=== PATIENT | female | born 1995 | race Caucasian/White ===

== ENCOUNTER 2019-08-21 21:16 | Inpatient (IN) | payer MEDICAID, SELFPAY ==
--- NOTE | 2019-08-21 21:26 | XR_ITS ---
WS: [id number] ABDOMEN KUB CLINICAL INFORMATION: Constipation COMPARISON: None. FINDINGS: Normal bowel gas pattern. Scattered air normal caliber small and large bowel. No significant bowel d istention. Normal lumbar spine XR/XR KUB [id number] Impression: Unremarkable bowel gas pattern.
[2019-08-21 21:52] VITALS: BP 136/98; PULSE 86; RESP 18; TEMP 36.9; O2SAT 98; BMI 31.5
--- NOTE | 2019-08-21 22:20 | W.ED.ABDPA2 ---
HPI - Abdominal Pain General: Chief Complaint: Abdominal Pain Stated Complaint: constipated Time Seen by Provider: 08/21/19 21:52 History of Present Illness: HPI narrative: Patient is a 24-year-old female comes to the ED with abdominal pain and constipation. Patient says that she has had some gallbladder issues in the past but has not had anything recently. Patient has had no abdominal surgeries and has not had her gallbladder removed. Patient says that the pain and constipation started about 3 days ago. Abdominal pain is located in the middle of the abdomen between the umbilicus and epigastric region. Pain radiates to the back as well. Patient says pain is constant and for the past 3 days and rates it a 9 out of 10 currently. Endorses nausea, but has not vomited. Patient says she has not had a bowel movement in about 3 days. Her last bowel movement 3 days ago was not hard and did not cause any straining. She says she is taken some mag citrate and another laxative and still has not had a bowel movement. Denies any blood in the stool, hematuria or dysuria. Associated Symptoms: Reports constipation and nausea; Denies chills, diarrhea, dysuria, fever(s), hematochezia, hematuria and vomiting Related Data: Date of Last Menstrual Period: 08/05/19 Review of Systems Const: Denies: fever(s), chills or fatigue Eyes: Denies: change in vision or eye discomfort ENMT: Denies: throat pain, odynophagia, nasal discharge or nasal congestion Card: Denies: chest pain, palpitations, edema, swelling of feet/ankles, dyspnea on exertion or orthopnea Resp: Denies: dyspnea, productive cough or non-productive cough GI: Reports: abdominal pain, nausea and constipation; Denies: vomiting, diarrhea or hematochezia : Denies: flank pain, dysuria or hematuria Musc: Denies: neck pain, back pain or extremity swelling Skin/Breast: Denies: rash or new lesions Neuro: Denies: headache(s), numbness in extremities or weakness in extremities PFSH ED PFSH: Medical History Asthma Hepatitis C Family History Other Diabetes Social History Smoking and tobacco status: current every day smoker Alcohol intake: current Adopted: No Lives independently: Yes Marital status: Single History of recent travel: No Current gender identity: Female Female Reproductive History: Date of last menstrual period: 08/05/19 Physical Exam Const: COMMON NORMALS: no acute distress, patient oriented x3 and alert GENERAL APPEARANCE: cooperative and well hydrated; not comfortable (Patient appears uncomfortable and in some pain.) HENMT: COMMON NORMALS: normocephalic HEAD & SCALP: normocephalic MOUTH: Normal oral and palatal mucosa present THROAT: posterior oropharynx normal and uvula midline Eye: COMMON NORMALS: Equal, round and reactive pupils present PUPIL: Yes Equal, round and reactive pupils present Neck/C-Spine: COMMON NORMALS: supple GENERAL: Yes normal visual inspection Resp: COMMON NORMALS: normal respiratory effort, No retractions, No use of accessory muscles and clear to auscultation bilaterally AUSCULTATION: clear to auscultation bilaterally Cardio: COMMON NORMALS: regular rate, regular rhythm, S1 normal heart sound present, S2 normal heart sound present, No gallops present (Cardio), No clicks present (Cardio), No murmurs present (Cardio) and Peripheral pulses 2+ throughout RATE: regular rate RHYTHM: regular rhythm HEART SOUNDS: S1 normal heart sound present and S2 normal heart sound present PERIPHERAL PULSES: Peripheral pulses 2+ throughout GI: COMMON NORMALS: Normal to inspection, nondistended, normoactive bowel sounds present, Soft to palpation and no masses INSPECTION: Yes central obesity AUSCULTATION: Yes Hypoactive bowel sounds present PALPATION: Yes Soft to palpation and Yes Tenderness to palpation present (GI) Details: other (Epigastric region mild tenderness., No tenderness.) OTHER: McBurney's point negative and Mancera's sign negative. : COMMON NORMALS: Yes no CVA tenderness BLADDER/KIDNEY EXAM: Yes no CVA tenderness Back/Pelvis: COMMON NORMALS: no CVA tenderness Extremity: COMMON NORMALS: normal to inspection and no pedal edema Neuro: COMMON NORMALS: patient oriented x3 SENSORIUM/ORIENTATION: Yes alert GAIT: Yes Normal gait present Skin: COMMON NORMALS: no rashes or lesions noted GENERAL SKIN EXAM: no rashes or lesions noted and dry skin Course Reevaluation(s): Reevaluation #1: I went in and discussed the lab and CT findings with patient. I told patient that we will need to get an ultrasound of her gallbladder. Patient said that she has asthma and uses an inhaler at home. She states right now she feels a little wheezy and could use a breathing treatment. I listen to her lungs and there was diffuse expiratory wheezing throughout bilaterally. Patient also coughing. I told patient I would ordered DuoNeb breathing treatment. I rechecked on patient after breathing treatment and she said coughing and wheezing greatly improved. Time: 00:33 Consultations: Consultation #1: I spoke with the [facility] on-call general surgeon Dr. Hilliard to discuss patient's case, symptoms, labs and the ultrasound findings. Based off patient's labs, if pain and nausea can be controlled he recommends discharging patient tonight but he will see patient tomorrow and reevaluate her. If we are unable to get patient's pain under control we can admit for observation. Time: 01:52 Vital Signs: Vital signs: Vital Signs Temperature 98.4 F 08/21/19 21:52 Pulse Rate 89 08/22/19 01:56 Respiratory Rate 18 08/22/19 01:56 Blood Pressure 117/66 08/22/19 01:56 Pulse Oximetry 96 08/22/19 01:56 MDM - Abdominal Pain MDM Narrative: Medical decision making narrative: Patient is a 24-year-old female comes to the ED with epigastric abdominal pain that radiates to back. Physical exam showed some epigastric area tenderness. CBC (WBC 8.5), CMP, UA were unremarkable. CT of the abdomen pelvis showed some gallbladder wall thickening and recommended doing an ultrasound. Ultrasound of the gallbladder showed many gallstones and a gallbladder wall thickening of [address] Hilliard the on-call general surgeon to discuss patient's case. He recommended that if patient's pain can be controlled he will see her at outpatient clinic tomorrow or if pain uncontrolled we can admit patient for observation and he can see them tomorrow in hospital. After IV morphine patient's initial pain went from a 9 out of 10 to a 7 out of 10. Patient does not feel comfortable about going home due to pain and would prefer to be admitted. Patient was then admitted to for observation. Dr. Chang placed the admitting orders. Lab Data: Attestation: I reviewed the patient's lab results. Labs: Lab Results 08/21/19 08/21/19 08/21/19 Range/Units 22:22 22:22 23:00 WBC 8.5 (4.0-10.0) 10^3/ uL RBC 4.46 (4.1-5.3) 10^6/u L Hgb 12.9 (11.5-15.3) g/dL Hct 40.1 (37.0-47.0) % MCV 89.9 (81-99) fL MCH 28.9 (28.0-34.0) pg MCHC 32.2 (30.0-36.0) g/dL RDW 12.4 (12.1-15.1) % Plt Count 178 (130-400) 10^3/c mm MPV 11.7 H (7.4-10.4) fL Neut % (Auto) 68.3 % Lymph % (Auto) 22.1 % Preble % (Auto) 5.4 % Eos % (Auto) 3.5 % Baso % (Auto) 0.5 % Neut # (Auto) 5.8 (1.8-7.7) 10^3/u L Lymph # (Auto) 1.9 (0.8-4.8) 10^3/u L Preble # (Auto) 0.5 (0.2-0.9) 10^3/u L Eos # (Auto) 0.3 (0.0-0.8) 10^3/u L Baso # (Auto) 0.0 (0.0-0.1) 10^3/u L Nucleated RBC % (a uto) 0 % Nucleated RBCs # 0.0 /100WBC Sodium (136-145) mmol/L Potassium (3.5-5.1) mmol/L Chloride (98-107) mmol/L Carbon Dioxide (22-29) mmol/L Anion Gap (5-19) BUN (6-20) mg/dL Creatinine (0.5-0.9) mg/dL GFR Calculation (90-130) mL/min Glucose (65-115) mg/dL Calculated Osmolal ity (285-295) mOsm/k g Calcium (8.5-10.5) mg/dL Total Bilirubin (0.15-1.2) mg/dL AST (0-32) U/L ALT (0-33) U/L Alkaline Phosphata se (35-105) IU/L Total Protein (6.6-8.7) g/dL Albumin (3.5-5.2) g/dL Globulin (1.3-4.6) g/dL Lipase (13-60) U/L HCG, Qual Negative (Negative) Urine Color Yellow (Yellow) Urine Appearance Clear (CLEAR) Urine pH 6 (5-7) Ur Specific Gravit y 1.015 (1.005-1.030) Urine Protein Neg (Negative) Urine Glucose (UA) Norm (Normal) Urine Ketones Negative (Negative) Urine Blood Neg (Negative) Urine Nitrate Negative (Negative) Urine Bilirubin Neg (NEGATIVE) Urine Urobilinogen Norm (Negative) mg/dL Ur Leukocyte Henna ase Negative (Negative) Urine RBC Rare (0-2) /hpf Urine WBC Rare (0-5) /hpf Ur Squamous Epith Cells 0-4 H (0-5) Urine Bacteria Trace (NONE) 08/21/19 Range/Units 23:00 WBC (4.0-10.0) 10^3/ uL RBC (4.1-5.3) 10^6/u L Hgb (11.5-15.3) g/dL Hct (37.0-47.0) % MCV (81-99) fL MCH (28.0-34.0) pg MCHC (30.0-36.0) g/dL RDW (12.1-15.1) % Plt Count (130-400) 10^3/c mm MPV (7.4-10.4) fL Neut % (Auto) % Lymph % (Auto) % Preble % (Auto) % Eos % (Auto) % Baso % (Auto) % Neut # (Auto) (1.8-7.7) 10^3/u L Lymph # (Auto) (0.8-4.8) 10^3/u L Preble # (Auto) (0.2-0.9) 10^3/u L Eos # (Auto) (0.0-0.8) 10^3/u L Baso # (Auto) (0.0-0.1) 10^3/u L Nucleated RBC % (a uto) % Nucleated RBCs # /100WBC Sodium 137 (136-145) mmol/L Potassium 4.0 (3.5-5.1) mmol/L Chloride 101 (98-107) mmol/L Carbon Dioxide 24 (22-29) mmol/L Anion Gap 16.0 (5-19) BUN 5 L (6-20) mg/dL Creatinine 0.7 (0.5-0.9) mg/dL GFR Calculation 102.8 (90-130) mL/min Glucose 106 (65-115) mg/dL Calculated Osmolal ity 280 L (285-295) mOsm/k g Calcium 8.9 (8.5-10.5) mg/dL Total Bilirubin 0.3 (0.15-1.2) mg/dL AST 23 (0-32) U/L ALT 33 (0-33) U/L Alkaline Phosphata se 65 (35-105) IU/L Total Protein 7.2 (6.6-8.7) g/dL Albumin 4.3 (3.5-5.2) g/dL Globulin 2.9 (1.3-4.6) g/dL Lipase 16 (13-60) U/L HCG, Qual (Negative) Urine Color (Yellow) Urine Appearance (CLEAR) Urine pH (5-7) Ur Specific Gravit y (1.005-1.030) Urine Protein (Negative) Urine Glucose (UA) (Normal) Urine Ketones (Negative) Urine Blood (Negative) Urine Nitrate (Negative) Urine Bilirubin (NEGATIVE) Urine Urobilinogen (Negative) mg/dL Ur Leukocyte Henna ase (Negative) Urine RBC (0-2) /hpf Urine WBC (0-5) /hpf Ur Squamous Epith Cells (0-5) Urine Bacteria (NONE) Imaging Data ^: CT Abd/Pel: Attestation: I personally reviewed and interpreted this imaging study as follows: Radiologist's impression: [address] [address] [address] Scan Report Signed Patient: Althea Barrow Unit #: [id number] : 1995 Age/Sex: 24 / F ADM Date: 08/21/19 Loc: ER Room/Bed: Attending Dr: Ordering Provider/Ordering MD: Naren Polanco Date of Service: 08/21/19 Procedure(s): CT abdomen pelvis w con* [id number] Accession Number(s): [id number] Report Number: [id number] PROCEDURE INFORMATION: Exam: CT Abdomen And Pelvis With Contrast Exam date and time: 08/21/2019 11:12 PM Age: 24 years old Clinical indication: Constipation and nausea and vomiting; Abdominal pain; Epigastric; Additional info: Epigatric pain and constipation TECHNIQUE: Imaging protocol: Computed tomography of the abdomen and pelvis with intravenous contrast. Radiation optimization: All CT scans at this facility use at least one of these dose optimization techniques: automated exposure control; mA and/or kV adjustment per patient size (includes targeted exams where dose is matched to clinical indication); or iterative reconstruction. Contrast material: OMNI 300; Contrast volume: 95 ml; Contrast route: 22G; COMPARISON: OB Limited [id number] 02/20/2019 1:29 PM RADIATION DOSE METRICS: Total DLP: 1532.61 mGy-cm FINDINGS: Lungs: Lung bases are clear. Liver: The liver is normal. Gallbladder and bile ducts: The gallbladder is distended. The wall is moderately thickened. There is pericholecystic edema. No calcified stones are seen. There is no biliary dilation. Pancreas: The pancreas is unremarkable. Spleen: The spleen is mildly enlarged. Adrenals: The adrenal glands are unremarkable. Kidneys and ureters: The kidneys are unremarkable. No hydronephrosis or stones. No ureteral dilation. Stomach and bowel: The stomach is unremarkable. The small bowel is nondilated. There is no sign of inflammation. The colon is unremarkable. Appendix: The appendix is normal. Intraperitoneal space: There is no free air or significant intraperitoneal free fluid. Trace pelvic free fluid is likely physiologic. Vasculature: The aorta is unremarkable. There is no aneurysm. Lymph nodes: There is no lymphadenopathy in the retroperitoneum, mesentery, pelvis or inguinal regions. Bladder: The urinary bladder is unremarkable. Reproductive: The uterus is unremarkable. There is no adnexal mass or large cyst. There is a 19 mm follicle in the right ovary. Bones/joints: Bones are unremarkable. Soft tissues: The abdominal wall is intact. CT/CT abdomen pelvis w con* [id number] IMPRESSION: Gallbladder wall edema. This could be related to cholecystitis or variety of other non inflammatory processes. Consider follow-up ultrasound if there is clinical evidence of gallbladder disease. Radiation Dose CTDIVOL = (mGy): DLP = 1532.61 (mGy-cm) Dictated By: Tutu Tang MD Signed By: Tutu Tang MD Signed Date/Time: 08/21/192356 DD/ 54 US: Attestation: I personally reviewed and interpreted this imaging study as follows: Radiologist's impression: Ultrasound gallbladder?prelim report showed many gallstones and a gallbladder wall thickening of 1 cm. Discharge Plan Discharge Patient Disposition: Admitted As Inpatient Clinical Impression: Thickening of wall of gallbladder Cholecystitis with cholelithiasis Qualifiers: Cholelithiasis location: gallbladder Cholecystitis acuity: acute Biliary obstruction: without biliary obstruction Qualified Code(s): K80.00 - Calculus of gallbladder with acute cholecystitis without obstruction Condition: Stable Referrals: Jaye Baires [Primary Care Provider] - Coding Level of Care Code ED Computer Systems Security Administrator for Chg Fwd Exam Comprehensive
[2019-08-21 22:35] LABS: Bacteria Urine TRACE; Bilirubin Urine Neg (NEGATIVE); Blood Urine Neg (Negative); Glucose Urine UA Norm (Normal); HCG Qualitative Urine. Negative (Negative); Ketones Urine Negative (Negative); Leukocyte Esterase Urine Negative (Negative); Nitrate Urine Negative (Negative); Protein Urine Neg (Negative); RBC Urine RARE /hpf (0-2); Specific Gravity, Urine 1.015 (1.005-1.030); Squamous Epithelial Cell Urine 0-4 (0-5); Urine Appearance Clear (CLEAR); Urine Color Yellow (Yellow); Urobilinogen Urine Norm (Negative); WBC Urine RARE /hpf (0-5); pH Urine 6 (5-7)
--- NOTE | 2019-08-21 23:02 | CTR_ITS ---
PROCEDURE INFORMATION: Exam: CT Abdomen And Pelvis With Contrast Exam date and time: 08/21/2019 11:12 PM Age: 24 years old Clinical indication: Constipation and nausea and vomiting; Abdominal pain; Epigastric; Additional info: Epigatric pain and constipation TECHNIQUE: Imaging protocol: Computed tomography of the abdomen and pelvis with intravenous contrast. Radiation optimization: All CT scans at this facility use at least one of these dose optimization techniques: automated exposure control; mA and/or kV adjustment per patient size (includes targeted exams where dose is matched to clinical indication); or iterative reconstruction. Contrast material: OMNI 300; Contrast volume: 95 ml; Contrast route: 22G; COMPARISON: [place] OB Limited [id number] 02/20/2019 1:29 PM RADIATION DOSE METRICS: Total DLP: 1532.61 mGy-cm FINDINGS: Lungs: Lung bases are clear. Liver: The liver is normal. Gallbladder and bile ducts: The gallbladder is distended. The wall is moderately thickened. There is pericholecystic edema. No calcified stones are seen. There is no biliary dilation. Pancreas: The pancreas is unremarkable. Spleen: The spleen is mildly enlarged. Adrenals: The adrenal glands are unremarkable. Kidneys and ureters: The kidneys are unremarkable. No hydronephrosis or stones. No ureteral dilation. Stomach and bowel: The stomach is unremarkable. The small bowel is nondilated. There is no sign of inflammation. The colon is unremarkable. Appendix: The appendix is normal. Intraperitoneal space: There is no free air or significant intraperitoneal free fluid. Trace pelvic free fluid is likely physiologic. Vasculature: The aorta is unremarkable. There is no aneurysm. Lymph nodes: There is no lymphadenopathy in the retroperitoneum, mesentery, pelvis or inguinal regions. Bladder: The urinary bladder is unremarkable. Reproductive: The uterus is unremarkable. There is no adnexal mass or large cyst. There is a 19 mm follicle in the right ovary. Bones/joints: Bones are unremarkable. Soft tissues: The abdominal wall is intact. CT/CT abdomen pelvis w con* [id number] IMPRESSION: Gallbladder wall edema. This could be related to cholecystitis or variety of other non inflammatory processes. Consider follow-up ultrasound if there is clinical evidence of gallbladder disease. Radiation Dose CTDIVOL = (mGy): DLP = 1532.61 (mGy-cm)
[2019-08-21 23:13] VITALS: RESP 18
[2019-08-21] MEDS: morphine 4 mg/mL SDV 1 mL IVP (23:13)
[2019-08-21] MEDS: ondansetron 2 mg/ML SDV 2 mL 4 MG IVP (23:13)
[2019-08-21] MEDS: sodium chloride 0.9% 1,000 ML 999 ML IV (23:14)
[2019-08-21 23:22] VITALS: BP 130/75; PULSE 88; RESP 20; O2SAT 95
[2019-08-21 23:22] LABS: Basophils % 0.5 %; Eosinophils # 0.3 10^3/uL (0.0-0.8); Eosinophils % 3.5 %; Hematocrit 40.1 % (37.0-47.0); Hemoglobin 12.9 g/dL (11.5-15.3); Lymphocytes # 1.9 10^3/uL (0.8-4.8); Lymphocytes % 22.1 %; Mean Corpuscular HGB Conc 32.2 g/dL (30.0-36.0); Mean Corpuscular Hemoglobin 28.9 pg (28.0-34.0); Mean Corpuscular Volume 89.9 fL (81-99); Mean Platelet Volume 11.7 fL (7.4-10.4); Monocytes # 0.5 10^3/uL (0.2-0.9); Monocytes % 5.4 %; Neutrophils # 5.8 10^3/uL (1.8-7.7); Neutrophils % 68.3 %; Nucleated Red Blood Cells % 0 %; Platelet Count 178 10^3/cmm (130-400); Red Blood Count 4.46 10^6/uL (4.1-5.3); Red Cell Distribution Width 12.4 % (12.1-15.1); White Blood Count 8.5 10^3/uL (4.0-10.0)
[2019-08-21 23:32] LABS: Alanine Aminotransferase 33 U/L (0-33); Albumin Level 4.3 g/dL (3.5-5.2); Alkaline Phosphatase 65 IU/L (35-105); Aspartate Amino Transferase 23 U/L (0-32); Blood Urea Nitrogen 5 mg/dL (6-20); Calcium 8.9 mg/dL (8.5-10.5); Carbon Dioxide 24 mmol/L (22-29); Chloride 101 mmol/L (98-107); Creatinine Clr Calc Pharmacy 158.4956; Globulin 2.9 g/dL (1.3-4.6); Glomerular Filtration Rate 102.8 mL/min (90-130); Glucose 106 mg/dL (65-115); Lipase 16 U/L (13-60); Osmolality Calculated 280 mOsm/kg (285-295); Sodium 137 mmol/L (136-145); Total Bilirubin 0.3 mg/dL (0.15-1.2); Total Protein 7.2 g/dL (6.6-8.7)
[2019-08-21] MEDS: iohexol 300 mg/mL 100 mL Btl IV (23:34)
[2019-08-22] VITALS (25 sets, daily range): BP systolic 92–117; BP diastolic 58–75; PULSE 78–115; RESP 16–20; TEMP 36.4–37; O2SAT 92–100
--- NOTE | 2019-08-22 | US_ITS ---
WS: [id number] ULTRASOUND ABDOMEN LIMITED CLINICAL INFORMATION: epigastric pain COMPARISON: None. FINDINGS: Liver Size: Mild hepatomegaly Craniocaudal length: 16.0 cm. Echogenicity: Normal. Surface nodularity: None. Mass (size and location): None. Bile ducts Intrahepatic ducts: Normal. Common bile duct diameter: 0.4 cm. Gallbladder Gallbladder wall thickening with cholelithiasis. Sonographic positive Mancera's sign. Findings suspici ous for cholecystitis. Gallbladder wall measures 9.6 mm. Gallbladder wall edema. Pancreas Normal as visualized. Right kidney: Normal. Hydronephrosis: None. Size: 10.0 cm x 5.2 cm x 4.2 cm. Abdominal aorta and IVC Visualized portions are normal. Ascites: None. US/US gall bladder [id number] IMPRESSION: 1. Thickened gallbladder wall measuring 9.6 mm. Cholelithiasis with sonographi c Mancera sign suspicious for acute cholecystitis. Gallbladder wall edema. 2. Common bile duct measures 2.8 mm. 3. Mild hepatomegaly. 4. No hydronephrosis in right kidney.
[2019-08-22] MEDS: ipratropium-albuterol 3 mL Neb INHALATION (01:30)
[2019-08-22] MEDS: morphine 4 mg/mL SDV 1 mL IVP ×2 (01:55→07:31)
[2019-08-22] MEDS: ondansetron 2 mg/ML SDV 2 mL 4 MG IVP ×3 (01:56→17:54)
--- NOTE | 2019-08-22 02:48 | PC.NURSE ---
Report attempted to be called. Nurse to return call.
[2019-08-22] MEDS: lactated ringers 1,000 ML 100 ML IV ×3 (05:02→21:21)
--- NOTE | 2019-08-22 06:36 | P.HP_ITS ---
Providers/Chief Complaint Admitting Physician: Juan Hilliard MD Primary Care Provider: Jaye Baires Chief Complaint: constipated History of Present Illness Althea Barrow is a pleasant 24 year old female presents to the emergency department because of her constipation as she was not able to have a bowel movement over the past few days, patient was evaluated and according to her was given mag citrate without obvious success and a CT scan of the abdomen and pelvis was obtained: Gallbladder wall edema. This could be related to cholecystitis or variety of other non inflammatory processes. Consider follow-up ultrasound if there is clinical evidence of gallbladder disease. Patient reports that she has been constipated and she denies any history of fatty dyspepsia or nausea or vomiting associated with any fatty diet or greasy food, she just started a job recently and have given about couple of months ago and usually she does encounter constipation after delivery for couple of months and she gets better afterwards. I was consulted yesterday due to the incidental findings of the gallbladder on the CT scan patient reports her pain mostly in the epigastric region and referred to the both sides of her abdomen, overall she feels a bit better not associated with fever chills nausea or vomiting or jaundice. Also patient reports that she has bronchial asthma and getting albuterol for it. Review of Systems General: Reports: 10 or more systems reviewed and unremarkable except in HPI and below Medications/Allergies Home Medications Medication Instructions Recorded Confirmed Last Taken Type albuterol sulfate 90 mcg/actuation 2 inh INHALATION Q6H 05/03/19 05/22/19 Unknown History breath activated powder inhaler,sensor norethindrone (contraceptive) 0.35 0.35 mg PO DAILY 05/13/19 05/22/19 08/21/19 History mg tablet clindamycin HCl 300 mg capsule 300 mg PO QID 05/22/19 05/22/19 Unknown History Allergies Allergy/AdvReac Type Severity Reaction Status Date / Time amoxicillin Allergy rash Verified 08/22/19 07:08 PFSH Acute PFSH: Medical History Asthma Hepatitis C Family History Other Diabetes Social History Smoking and tobacco status: current every day smoker Alcohol intake: current Adopted: No Lives independently: Yes Marital status: Single History of recent travel: No Current gender identity: Female Female Reproductive History: Date of last menstrual period: 08/08/19 Vitals/I&O/Wt Last Vital Signs Temp 98.6 F 08/22/19 04:00 Pulse 96 08/22/19 04:00 Resp 20 H 08/22/19 04:00 BP 109/71 08/22/19 04:00 Pulse Ox 96 08/22/19 04:00 08/21/19 08/21/19 08/22/19 14:59 22:59 06:59 Intake Total 1000 / 1000 Output Total 0 / 0 Balance 1000 / 1000 Weight last 48 hrs Weight 220 lb Physical Exam Narrative: EXAM NARRATIVE: Patient is conscious alert oriented X3 BMI 32 Head and neck examination PERRLA no masses no cervical lymphadenopathy no jaundice Cardiac examination audible S1-S2 no murmurs no gallops no arrhythmias Chest is clear bilateral,abscence of Rhonchi or wheezes,no surgical emphysema Abdomen tender over the upper abdomen including the epigastric region which is mostly tender otherwise nondistended soft no organomegaly guarding or rigidity/no signs of peritonitis Obese Extremities no cyanosis no clubbing no edema Data : 08/21/19 23:00 08/21/19 23:00 A&P Assessment and plan (1) Constipation: We will plan to give the patient milk of molasses enema We will follow on the results Status: Acute (2) Asthma: We will start the patient on nebulizer treatment Status: Acute (3) Cholelithiasis: Keep n.p.o. for now IV fluid resuscitation Follow on ultrasound results 13:00 After further evaluation and based on the ultrasound findings in addition to the CT scan findings and per my personal interpretation of the CT scan images, I did senior counsel commercial the patient for laparoscopic cholecystectomy possible. Plan of care; After thorough history physical examination and reviewing the chart and image,I counseled the patient for laparoscopic cholecystectomy possible open tomorrow, indications risks including but not limited injury to the common bile duct and other viscera.benefits and alternatives all discussed with the patient, and she did agree to proceed. All questions have been answered and all concerns have been addressed to patient's satisfaction. Informed consent per chart Status: Acute Attestations Medical Necessity Statement*: Observation Time Spent in Patient Care: 16 - 35 minutes (>than 50% of time spent in counselling and/or direct pt care on unit) . Coding Level of Care Code Acute Volunteer Services Specialist for Chg Fwd Diagnoses Constipation K59.00 Asthma J45.909 Cholelithiasis K80.20
[2019-08-22] MEDS: famotidine 20 mg/2 mL INJ IVP ×2 (08:05→21:08)
[2019-08-22] MEDS: clindamycin 900 MG/50 ML PREMIX 100 MG IV (08:05)
[2019-08-22] MEDS: ciprofloxacin 200 MG/100 ML PREMIX 100 MG IV ×2 (09:42→21:16)
[2019-08-22] MEDS: morphine 4 mg/mL SDV 1 mL 2 MG IVP ×3 (14:15→23:16)
[2019-08-23] VITALS (28 sets, daily range): BP systolic 95–132; BP diastolic 69–89; PULSE 88–125; RESP 14–22; TEMP 36.4–37.1; O2SAT 91–100
[2019-08-23] MEDS: metroNIDAZOLE IV 500 MG/100 ML PREMIX 100 MG IV ×4 (00:21→22:37)
--- NOTE | 2019-08-23 03:32 | PC.NURSE ---
During Pt rounding, Pt was sitting up in bed in tripod position due to SOB, called RT and requested a breathing treatment. At 0333 breathing treatment completed and Pt reports that she is no longer SOB.
[2019-08-23 06:25] LABS: Alanine Aminotransferase 37 U/L (0-33); Albumin Level 3.6 g/dL (3.5-5.2); Alkaline Phosphatase 59 IU/L (35-105); Anion Gap 16.9 (5-19); Aspartate Amino Transferase 26 U/L (0-32); Blood Urea Nitrogen 4 mg/dL (6-20); Calcium 9.1 mg/dL (8.5-10.5); Carbon Dioxide 22 mmol/L (22-29); Chloride 102 mmol/L (98-107); Globulin 3.3 g/dL (1.3-4.6); Glomerular Filtration Rate 122.8 mL/min (90-130); Glucose 99 mg/dL (65-115); Osmolality Calculated 280 mOsm/kg (285-295); Potassium 3.9 mmol/L (3.5-5.1); Sodium 137 mmol/L (136-145); Total Bilirubin 0.3 mg/dL (0.15-1.2); Total Protein 6.9 g/dL (6.6-8.7)
[2019-08-23] MEDS: famotidine 20 mg/2 mL INJ IVP ×2 (08:16→20:56)
[2019-08-23] MEDS: morphine 4 mg/mL SDV 1 mL 2 MG IVP ×4 (08:16→23:44)
--- NOTE | 2019-08-23 09:08 | PM.PN ---
Subjective Subjective: Interval history: Overall Better Vitals/I&O/Wt Last Vital Signs Temp 98.4 F 08/23/19 07:10 Pulse 94 08/23/19 08:42 Resp 20 H 08/23/19 08:40 BP 108/70 08/23/19 07:10 Pulse Ox 99 08/23/19 08:40 08/22/19 08/23/19 08/23/19 22:59 06:59 14:59 Intake Total 763.333 / 1841.666 50 / 2754.998 6532 / 1150 Balance 763.333 / 1341.666 50 / 2866.359 6547 / 1150 Weight last 48 hrs Weight 220 lb Physical Exam Narrative: EXAM NARRATIVE: Patient is conscious alert oriented X3 BMI 32 Head and neck examination PERRLA no masses no cervical lymphadenopathy no jaundice Abdomen right upper quadrant otherwise nontender nondistended soft no organomegaly guarding or rigidity/no signs of peritonitis Extremities no cyanosis no clubbing no edema Data : 08/21/19 23:00 08/23/19 05:20 A&P Assessment and plan (1) Constipation: We will plan to give the patient milk of molasses enema We will follow on the results Status: Acute (2) Asthma: We will start the patient on nebulizer treatment Status: Acute (3) Cholelithiasis: Plan of care; After thorough history physical examination and reviewing the chart and image,I counseled the patient for laparoscopic cholecystectomy possible open today, indications risks including but not limited injury to the common bile duct and other viscera.benefits and alternatives all discussed with the patient, and she did agree to proceed. All questions have been answered and all concerns have been addressed to patient's satisfaction. Informed consent per chart Status: Acute Attestations Medical Necessity Statement*: Observation Time Spent in Patient Care: (>than 50% of time spent in counselling and/or direct pt care on unit). Coding Level of Care Code Acute Night Court Magistrate for Tiburcio Keller Diagnoses Constipation K59.00 Asthma J45.909 Cholelithiasis K80.20
[2019-08-23] MEDS: lactated ringers 1,000 ML 100 ML IV (09:24)
--- NOTE | 2019-08-23 10:11 | PC.CHAP ---
Pastoral Care Encounter/Spiritual Assessment Type of Contact [] Declined marionette performer visit [] Patient/Family/Request visit [] Outpatient visit [] Follow-up visit [] Physician referral [] Code/Alert [x] Routine visit [] Staff referral [] Actively dying [x] Patient sleeping [] Family support [] [] Out of room [] Palliative care [] [] Receiving care in room [] Pre-surgical visit [] Trauma [] Long length of stay [] ICU visit [] Other: Relational/Emotional Strength [] Patient feels connected with others/family/visitors/staff [] Distress [] Loneliness/isolation [] Abandonment Spirituality of Patient [] Person of Rebecca [] Attends Judaism of their Rebecca [] Believes in Prayer [] Reads Bible or Jainism materials [] There are Spiritual issues to be addressed Coordinate Measuring Machine Technician Interventions [] Prayer [] Active listening [] Non-anxious presence [] Spiritual/emotional support [] Crisis/trauma care [] Spiritual counseling [] Bereavement support [] Provided bereavement packet [] Provided Bible/devotional materials [] Provided toy/stuffed animal, coloring book to patient or family member [] Provided Communion [] Anointing/[place] [] Salvation [x] Completed spiritual assessment [] Other: Impact on Illness or Injury [] Angry [] Fearful [] Anxious [] Often cries [] Exhaustion [] Unable to work [] Unable to attend confucianism [] Unable to walk/stand [] Unable to read [] Unable to drive [] Unable to eat/drink [] Unable to sleep [] Unable to be with family [] Patient intubated [] Other: Summary Time spent with patient
--- NOTE | 2019-08-23 11:28 | ANES.PREANE2 ---
Pre-Anesthetic Assessment Pre-Anesthetic Assessment: Height/Weight: Height 1.78 m Weight 99.79 kg Temp Pulse Resp BP Pulse Ox 98.5 F 96 16 109/71 97 08/23/19 11:14 08/23/19 11:14 08/23/19 11:14 08/23/19 11:14 08/23/19 11:14 Preop Diagnosis: Acute cholecystitis Proposed Procedure: Operation Date: 08/23/19 11:00 Proposed Procedures p Laparoscopic Cholecystectomy(Not Applicable) - Juan Hilliard MD Familial anesthetic complications: None Was Beta Adam taken within 24 hours: N/A Last intake: Intake Last Liquid Date 08/22/19 Last Liquid Time 23:00 Last Solid Date 08/22/19 Last Solid Time 23:00 Social: Social History: Tobacco Exam: Pre-Anes Outpt Exam: alert, oriented x 3, clear to auscultation bilaterally and regular rate & rhythm Airway: Cervical ROM: WNL MP: 2 Dentition: Chipped Additional comments: Missing Pulmonary: Pulmonary: Asthma Hepatic: Hepatic: Hepatitis (Hep C) GI: Comments: gallstones Anesthetic Plan: ASA status: 2 Anesthesia: General Risk of > 500 ml blood loss (7ml/kg in children): No Meds/Allergies Current Medications: Current Medications Generic Name Dose Route Start Last Admin Trade Name Freq PRN Reason Stop Dose Admin Albuterol Sulfate 2.5 mg 08/22/19 06:51 08/23/19 08:36 Albuterol INHALATION 2.5 mg Q4H.RESPIRATORY P RN Administration SHORTNESS OF WILMA TH Famotidine 20 mg 08/22/19 08:00 08/23/19 08:16 Pepcid Inj IVP 20 mg Q12H ANN Administration Lactated Ringer's 1,000 mls @ 100 m ls/hr 08/22/19 04:05 08/23/19 09:24 Lactated Ringers IV 100 mls/hr .Q10H ANN Administration Metronidazole 500 mg in 100 mls @ 100 mls/hr 08/22/19 22:45 08/23/19 09:21 Flagyl Iv IV Infused Q8H ANN Infusion Protocol Cefazolin Sodium/D extrose 2 gm in 50 mls @ 100 mls/hr 08/22/19 22:45 08/23/19 07:28 Kefzol IV Infused Q8H ANN Infusion Protocol Morphine Sulfate 2 mg 08/22/19 13:34 08/23/19 08:16 Morphine IVP 2 mg Q2H PRN Administration SEVERE PAIN Ondansetron HCl 4 mg 08/22/19 04:05 08/22/19 17:54 Zofran IVP 4 mg Q8H PRN Administration vomiting, or N/V if npo PFSH Anesthesia PFSH: Medical History Asthma Hepatitis C Family History Other Diabetes Social History Smoking and tobacco status: current every day smoker Alcohol intake: current Adopted: No Lives independently: Yes Marital status: Single History of recent travel: No Current gender identity: Female Female Reproductive History: Date of last menstrual period: 08/08/19 Data Anesthesia CBC & Chem 7: 08/21/19 23:00 08/23/19 05:20 Other Labs: Laboratory Results - last 48 hr 08/21/19 08/21/19 08/21/19 22:22 22:22 23:00 WBC 8.5 RBC 4.46 Hgb 12.9 Hct 40.1 MCV 89.9 MCH 28.9 MCHC 32.2 RDW 12.4 Plt Count 178 MPV 11.7 H Neut % (Auto) 68.3 Lymph % (Auto) 22.1 [place] % (Auto) 5.4 Eos % (Auto) 3.5 Baso % (Auto) 0.5 Neut # (Auto) 5.8 Lymph # (Auto) 1.9 [place] # (Auto) 0.5 Eos # (Auto) 0.3 Baso # (Auto) 0.0 Nucleated RBC % (auto) 0 Nucleated RBCs # 0.0 Sodium Potassium Chloride Carbon Dioxide Anion Gap BUN Creatinine GFR Calculation Glucose Calculated Osmolality Calcium Total Bilirubin AST ALT Alkaline Phosphatase Total Protein Albumin Globulin Lipase HCG, Qual Negative Urine Color Yellow Urine Appearance Clear Urine pH 6 Ur Specific [place] 1.015 Urine Protein Neg Urine Glucose (UA) Norm Urine Ketones Negative Urine Blood Neg Urine Nitrate Negative Urine Bilirubin Neg Urine Urobilinogen Norm Ur Leukocyte Esterase Negative Urine RBC Rare Urine WBC Rare Ur Squamous Epith Cells 0-4 H Urine Bacteria Trace 08/21/19 08/23/19 23:00 05:20 WBC RBC Hgb Hct MCV MCH MCHC RDW Plt Count MPV Neut % (Auto) Lymph % (Auto) [place] % (Auto) Eos % (Auto) Baso % (Auto) Neut # (Auto) Lymph # (Auto) [place] # (Auto) Eos # (Auto) Baso # (Auto) Nucleated RBC % (auto) Nucleated RBCs # Sodium 137 137 Potassium 4.0 3.9 Chloride 101 102 Carbon Dioxide 24 22 Anion Gap 16.0 16.9 BUN 5 L 4 L Creatinine 0.7 0.6 GFR Calculation 102.8 122.8 Glucose 106 99 Calculated Osmolality 280 L 280 L Calcium 8.9 9.1 Total Bilirubin 0.3 0.3 AST 23 26 ALT 33 37 H Alkaline Phosphatase 65 59 Total Protein 7.2 6.9 Albumin 4.3 3.6 Globulin 2.9 3.3 Lipase 16 HCG, Qual Urine Color Urine Appearance Urine pH Ur Specific [place] Urine Protein Urine Glucose (UA) Urine Ketones Urine Blood Urine Nitrate Urine Bilirubin Urine Urobilinogen Ur Leukocyte Esterase Urine RBC Urine WBC Ur Squamous Epith Cells Urine Bacteria Cardiac Studies: No Data to Display
[2019-08-23] MEDS: heparin 5,000 unit/mL INJ 1 mL 2000 UNIT SUBCUT (11:49)
[2019-08-23] MEDS: sodium chloride 0.9% 1,000 ML 30 ML IV (12:00)
[2019-08-23] MEDS: lidocaine 2% INJ 20 mL INJECTION (12:25)
--- NOTE | 2019-08-23 13:35 | P.OP_ITS ---
Operative Report Date of procedure: August 23, 2019 Pre-op Diagnosis: Acute cholecystitis Post-op diagnosis: same Post-op Findings: Thickened cystic duct Endoloop PDS was applied x2 Procedure Done: Laparoscopic cholecystectomy and intra-abdominal drain placement Implants: Intra-abdominal 15 Bulgarian rounded Saroj drain Specimens removed/disposition: GB and contents Surgeon: Juan Hilliard Lead Javascript Engineer: Surgical janie Garcia Circulating nurse Venecia Anesthesia: MAC ([place] and Dr. Gamble) Estimated blood loss (mL): 20 Complications: Please see anesthesia report with regard to patient's pulmonary condition Condition: stable Disposition: observation Brief History: This is a pleasant 24 years old female patient presents with abdominal pain and was found to have acute calculus cholecystitis, after thorough history physical examination patient was offered laparoscopic cholecystectomy possible open. Patient agreed to proceed Informed consent per chart Procedure: Patient was identified in the holding area and taken back to the operative suite, placed in supine position intubated by anesthesia . Time-out was done verifying the patient's name/date of /planned procedure and destination after the procedure, all were in agreement. SCDs confirmed to be functioning, preoperative antibiotics administered per protocol, and beta kaitlin protocol was confirmed. Patient was appropriately secured to the table, footboard was applied to the OR table, before prep and drape anesthesia was asked to tilt the table back and forth to make sure that the patient is appropriately secured and she was. Prep and drape of the abdomen was done under the usual sterile technique, followed by that supraumbilical skin incision,skin incision was done by a 15 blade knife, and stay sutures were applied to the fascia and Govea trocar technique was used to enter the abdominal without injuring any abdominal viscera, started by low flow gas insufflation followed by a high flow, started with a 10 mm laparoscope and under direct vision there was no evidence of any injuries, the scope then switched to a 30? ,10 millimeter scope and under direct visualization 5 millimeter trocar was inserted in the epigastric region followed by two 5 mm trocars were inserted in the right upper quadrant that was done after injection of local lidocaine 2% at all incision sites. Gallbladder showed acute calculus cholecystitis with extensive edema &with adhesions Patient was then positioned in the head up and tilted to the left dissection started by taking adhesions down using [place] forceps with heat, continued dissection until I identified the critical view of the thickened cystic duct and cystic artery where seen connected to the gallbladder. Clips were applied on the cystic duct towards the common bile duct 1 towards the gallbladder then divided is in sharp scissors, 2 clips were then applied onto the cystic artery and 1 towards the gallbladder and divided by sharp scissors. The clips were not able to cross all the way onto the cystic duct and this made me elected to place an Endoloop PDS x2 plate encircling the cystic duct to secure the stump. There was no evidence of stones in the cystic duct Dissection was then carried along of the gallbladder from the gallbladder fossa using cautery as well as sharp dissection with heat energy. The gallbladder then was dissected out from the gallbladder fossa totally , cholecystectomy was then achieved and was placed in an Endo Catch bag and then retrieved from the Govea trocar site under direct visualization using a 5 mm 30? scope through the epigastric trocar, specimen was then passed to the circulating nurse to go for permanent pathology,irrigation and hemostasis was done to the gallbladder fossa after hemostasis was secured, final survey laparoscopy was done that showed no injuries. Suction irrigation was obtained The supraumbilical fascial defect was then closed using interrupted Vicryl sutures using a fascial closure device ;Hiram Perez under direct visualization Gas was allowed to deflate,Trocars were then taken out under direct vision there was no evidence of bleeding Specimen was passed to the circulating nurse for permanent pathology. Final laparoscopic survey was done showing no injury or bleeding Right upper quadrant drain was placed at Morison's pouch and secured to the skin and the supraumbilical incision as well as all trocar sites were closed by by 4-0 Monocryl preceded by 3-0 Vicryl to approximate the skin edges of the supraumbilical incision, dressing was applied in the form of Dermabond and the patient patient got extubated and was taken to recovery area in a stable condition. Count of sponges,needles and instruments were completed at the end of the procedure I was present for the whole entire procedure.
[2019-08-23] MEDS: ipratropium 0.5 mg/2.5 mL Neb INHALATION (14:05)
[2019-08-23] MEDS: fentaNYL 50 mcg/mL INJ 2mL IVP ×2 (14:17→14:22)
[2019-08-23] MEDS: HYDROcodone-acetaminophen 5-325 mg Tablet 1 TAB PO ×2 (15:48→22:35)
[2019-08-24] VITALS (11 sets, daily range): BP systolic 102–119; BP diastolic 65–84; PULSE 74–106; RESP 16–20; TEMP 36.8–37.1; O2SAT 89–96
[2019-08-24] MEDS: HYDROcodone-acetaminophen 5-325 mg Tablet 1 TAB PO ×2 (04:48→11:21)
[2019-08-24] MEDS: lactated ringers 1,000 ML 100 ML IV (04:48)
[2019-08-24 06:55] LABS: Alanine Aminotransferase 40 U/L (0-33); Albumin Level 3.4 g/dL (3.5-5.2); Alkaline Phosphatase 59 IU/L (35-105); Aspartate Amino Transferase 34 U/L (0-32); Blood Urea Nitrogen 5 mg/dL (6-20); Calcium 8.7 mg/dL (8.5-10.5); Carbon Dioxide 24 mmol/L (22-29); Chloride 104 mmol/L (98-107); Creatinine Clr Calc Pharmacy 158.4956; Glomerular Filtration Rate 102.8 mL/min (90-130); Glucose 103 mg/dL (65-115); Osmolality Calculated 284 mOsm/kg (285-295); Sodium 139 mmol/L (136-145); Total Bilirubin 0.3 mg/dL (0.15-1.2); Total Protein 6.4 g/dL (6.6-8.7)
[2019-08-24] MEDS: morphine 4 mg/mL SDV 1 mL 2 MG IVP (07:07)
[2019-08-24] MEDS: metroNIDAZOLE IV 500 MG/100 ML PREMIX 100 MG IV ×2 (07:08→14:06)
[2019-08-24] MEDS: ketorolac 30 mg/mL INJ 15 MG IVP ×2 (09:02→16:26)
[2019-08-24] MEDS: famotidine 20 mg/2 mL INJ IVP (09:02)
--- NOTE | 2019-08-24 16:20 | PM.DCS ---
Discharge Providers Date of Admission: 08/22/19 02:04 Date of Discharge: August 24, 2019 Attending Provider at Admission: Juan Hilliard MD Attending Provider at Discharge: Juan Hilliard MD Primary Care Provider: Jaye Baires Diagnoses at Discharge Discharge Diagnosis (1) Constipation: Status: Chronic Problem details: Emphasis on stool softeners and high-fiber (2) Asthma: Status: Acute Problem details: Medical management and to be followed up on by PCP service as an outpatient (3) Cholelithiasis: Status: Inactive Problem details: Condition resolved Reason for Visit Reason for Visit: Reason For Visit: constipated Hospital Course Discharge Summary: This is a pleasant 24-year-old female patient initially presented to the emergency department with history of constipation, incidental finding of inflamed gallbladder that showed pericholecystic fluid and ultrasound confirmed acute cholecystitis with calculus formation, patient had an ongoing asthma and wheezes of her chest that required medical optimization before taking her for surgery and thus an inpatient admission was medical necessity and switching the patient from observation status to inpatient admission. Patient undergone uneventful laparoscopic cholecystectomy and I elected to place an intra-abdominal drain due to the extensive inflammatory process of her gallbladder and cystic duct, postoperative day 1 did well tolerating p.o. intake and pain has been better under control the help of Toradol IV. Through the day patient progress clinically in a positive way and she started ambulating p.o. intake and having good urine output. Plan to discharge patient home today on pain medication Physical Exam Narrative: EXAM NARRATIVE: Patient is conscious alert oriented X3 BMI 32 Head and neck examination PERRLA no masses no cervical lymphadenopathy no jaundice Cardiac examination audible S1-S2 no murmurs no gallops no arrhythmias Chest fair air entry bilateral,yet scattered rhonchi(patient has been responding well to breathing treatment) Abdomen nontender nondistended soft no organomegaly guarding or rigidity/no signs of peritonitis/right upper quadrant drain in place with serosanguineous output Incisions are clean dry and intact Extremities no cyanosis no clubbing no edema Discharge Data Data Completed and Pending: Completed Studies During Hospitalization Category Date Time Status CT abdomen pelvis w con* [id number] Urge nt Cat Scan 08/21/19 23:02 Completed XR KUB [id number] Stat Exams 08/21/19 21:26 Completed US gall bladder 7 [id number] Urgent Ultrasound 08/22/19 00:00 Completed Pending at discharge Category Date Time Status ES surgery / GI i mages Routine Exams 08/23/19 11:20 Taken Pathology: Surgic al [PTH] Routine Pth 08/23/19 13:10 Ordered Labs from last 24 hours 08/24/19 06:10 Sodium 139 Potassium 4.0 Chloride 104 Carbon Dioxide 24 Anion Gap 15.0 BUN 5 L Creatinine 0.7 GFR Calculation 102.8 Glucose 103 Calculated Osmolal ity 284 L Calcium 8.7 Total Bilirubin 0.3 AST 34 H ALT 40 H Alkaline Phosphata se 59 Total Protein 6.4 L Albumin 3.4 L Globulin 3.0 Vitals: Last Vital Signs Temp 98.8 F 08/24/19 11:05 Pulse 87 08/24/19 15:09 Resp 16 08/24/19 15:02 BP 111/75 08/24/19 11:05 Pulse Ox 96 08/24/19 15:02 Discharge Plan Discharge Patient Disposition: Home, Self-Care Condition: Stable Prescriptions: [place] 5-325 mg tablet 1 tab PO Q6H PRN (Reason: pain) Qty: 28 RF: 0 Continued norethindrone (contraceptive) [Ortho Micronor] 0.35 mg tablet 0.35 mg PO DAILY RF: 0 albuterol sulfate 90 mcg/actuation aero powdr breath act w/sensor 2 inh INHALATION Q6H RF: 0 Discontinued clindamycin HCl 300 mg capsule 300 mg PO QID RF: 0 Discharge Orders: Discharge Order (Routine); Ordered 08/24/19 Ordered By: Juan Hilliard Referrals: Jaye Baires [Primary Care Provider] - 4-7 days (Please call Monday to set up a follow up appointment.) Juan Hilliard MD [Physician] - 7-10 days (Please call Monday to set up a follow up appointment Return to surgery office in 7 to 10 days) Discharge Diet: Advance as tolerated Patient Instructions: Asthma - Adult, Hydrocodone/Acetaminophen (By mouth), Anthony-Marques Drain Care (GEN), Laparoscopic Cholecystectomy (DC) Activity Restrictions/Additional Instructions: 1. Patient can shower after 48 hours from surgery 2. Remove Dermabond 7 to 10 days after surgery 3. Up and walking as tolerated 4. Do lift more than 5 pounds first 2 weeks after surgery and not more than 25 pounds 6 to 8 weeks after surgery. 5. Do not operate heavy machinery or drive while using pain medications. 6.Contact the office or return to the ER for worsening nausea vomiting fevers or chills, or noticing any redness around incision sites or discharge. 6. Advised to return to ER or contact my office if there are any signs of infection like, increasing pain, fevers, chills, redness or drainage of pus. 7. Avoid constipation 8. Incentive spirometer every hour 9. Cessation of smoking 10. Drain care 11. Establish an appointment as soon as possible with primary care provider services to follow on patient's progress with regard to her asthma management Discharge Attestations Time Spent in Discharge Care*: greater than 30 min Quality Metrics Clinical Quality Measures During this hospital stay, did patient experience: None Coding Level of Care Code Acute Cisco Network Engineer for Tiburcio Keller Diagnoses Constipation K59.00 Asthma J45.909 Cholelithiasis K80.20
== END 2019-08-24 17:20 | disposition home or self-care (01) | DRG 413 ==
LOC: ER 08-22 02:27 → MEDSURG 08-22 02:41
PROVIDERS: Physician Assistant; Admitting Provider Surgery; PCP Nurse Practitioner Family; Visit Provider Surgery
PROC: 0FT44ZZ Resection of Gallbladder, Percutaneous Endoscopic Approach (ICD-10-PCS; CPT 47562; principal; 2019-08-23 11:00)
DX: K80.00 Calculus of gallbladder with acute cholecystitis without obstruction (principal); K59.00 Constipation, unspecified; J45.909 Unspecified asthma, uncomplicated; B19.20 Unspecified viral hepatitis C without hepatic coma; F17.210 Nicotine dependence, cigarettes, uncomplicated
CPT/HCPCS: 12345; 36415; 74018; 74177; 76705; 80053; 81001; 81025; 83690; 85025; 88304; 94640; 96361; 96365; 96366; 96374; 96375; 96376; 99283; 99285; G0378; J0131; J0690; J0744; J1644; J1885; J2001; J2270; J2405; J2704; J2930; J3010; J3490; J3535; J7030; J7611; J7644; Q9967; S0030

== ENCOUNTER 2019-08-21 21:16 | Emergency (ER) | payer MEDICAID, SELFPAY | END 2019-08-22 03:45 | disposition still patient (30) | LOC: ER 10-14 14:31 | PROVIDERS: Emergency Provider Physician Assistant; PCP Nurse Practitioner Family | DX: K80.00 Calculus of gallbladder with acute cholecystitis without obstruction (principal); Z86.19 Personal history of other infectious and parasitic diseases; F17.210 Nicotine dependence, cigarettes, uncomplicated | CPT/HCPCS: 12345; 36415; 74018; 74177; 76705; 80053; 81001; 81025; 83690; 85025; 94640; 96361; 96365; 96366; 96374; 96375; 96376; 99283; 99285; G0378; J0131; J0690; J0744; J1644; J2270; J2405; J3490; J7030; J7611; Q9967; S0030 ==

== ENCOUNTER 2019-09-06 04:00 | Emergency (ER) | payer MEDICAID, SELFPAY ==
[2019-09-06 04:10] VITALS: BP 143/96; PULSE 112; RESP 18; TEMP 36.2; O2SAT 96; BMI 30.1
--- NOTE | 2019-09-06 04:11 | ECG_ITS ---
Measurements Intervals [place] Rate: 96 P: 87 WA: 134 QRS: 85 QRSD: 90 T: 75 QT: 335 QTc: 424 SINUS RHYTHM Compared to ECG 08/30/2018 10:43:28 Sinus arrhythmia no longer present Electronically Signed On 09-06-2019 18:00:47 CDT by Shelby Peterson M.D. [email or web address]
--- NOTE | 2019-09-06 04:11 | XR_ITS ---
WS: [id number] PORTABLE CHEST HISTORY: Chest pain and short of breath. COMPARISON: 08/30/2018 Lungs are clear and well expanded. No pleural effusion or pneumothorax. Cardiac size: Normal. Mediastinum/Aorta: Normal mediastinum. No osseous abnormality seen. XR/XR chest 1V portable [id number] IMPRESSION: Unremarkable portable chest.
--- NOTE | 2019-09-06 04:15 | W.ED.CHESTPA ---
HPI - Chest Pain General: Chief Complaint: Chest Pain Stated Complaint: CP Time Seen by Provider: 09/06/19 04:02 Source: patient Mode of arrival: ambulatory Limitations: no limitations History of Present Illness: HPI narrative: 24-year-old female who had gallbladder surgery 1 week ago. She states that since then she has been having sharp chest pain along with worsening pain with breathing. Patient states she woke up tonight and was having severe sharp chest pain. She denies any fever. She denies any vomiting or diarrhea. MD complaint: chest pain Onset (ago): day(s) Timing of current episode: constant Onset: during rest Pain location: left chest Pain radiation: abdomen Severity: moderate Quality: sharp Relieving factors: nothing Exacerbating factors: nothing Associated symptoms: Deny abdominal pain, dyspnea, fever(s), nausea or vomiting Review of Systems Const: Denies: fever(s), chills, body aches or change in appetite Eyes: Denies: blurry vision or eye discomfort ENMT: Denies: throat pain or dental pain Card: Reports: chest pain Resp: Denies: dyspnea GI: Denies: abdominal pain, nausea, vomiting or diarrhea : Denies: dysuria Musc: Denies: neck pain or back pain Skin/Breast: Denies: rash Neuro: Denies: headache(s) Psych: Denies: depression Evens/Lymph: Denies: easy bruising All/Imm: Denies: urticaria PFSH ED PFSH: Medical History Asthma Medical management and to be followed up on by PCP service as an outpatient Hepatitis C Surgical History History of laparoscopic cholecystectomy (~08/2019) Family History Other Diabetes Denies family history of Anesthesia complication Bleeding disorder Social History Smoking and tobacco status: current some day smoker Alcohol intake: current Adopted: No Lives independently: Yes Marital status: Single History of recent travel: No Current gender identity: Female Female Reproductive History: Date of last menstrual period: 08/08/19 Physical Exam Const: COMMON NORMALS: no acute distress, patient oriented x3 and healthy appearing HENMT: COMMON NORMALS: normocephalic and atraumatic HEAD & SCALP: normocephalic and atraumatic Eye: COMMON NORMALS: Equal, round and reactive pupils present and EOMs intact bilaterally PUPIL: Yes Equal, round and reactive pupils present Neck/C-Spine: COMMON NORMALS: full ROM and supple Chest: COMMONS NORMALS: normal inspection of the chest and normal palpation of entire chest wall Resp: COMMON NORMALS: normal respiratory effort, No retractions, No use of accessory muscles and clear to auscultation bilaterally AUSCULTATION: clear to auscultation bilaterally Cardio: COMMON NORMALS: regular rhythm and No murmurs present (Cardio) RATE: tachycardic RHYTHM: regular rhythm GI: COMMON NORMALS: Normal to inspection, nondistended, normoactive bowel sounds present, Soft to palpation, non-tender and no masses PALPATION: Yes Soft to palpation Extremity: COMMON NORMALS: normal to inspection and full ROM Neuro: COMMON NORMALS: patient oriented x3, moves all extremities and no focal motor deficits Psych: COMMON NORMALS: mental status grossly normal, Normal thought process present and cooperative THOUGHT PROCESS: Normal thought process present Skin: COMMON NORMALS: no rashes or lesions noted and no wounds GENERAL SKIN EXAM: no rashes or lesions noted Course Vital Signs: Vital signs: Vital Signs Temperature 97.1 F L 09/06/19 04:10 Pulse Rate 99 09/06/19 04:36 Respiratory Rate 19 H 09/06/19 04:36 Blood Pressure 143/96 09/06/19 04:10 Pulse Oximetry 97 09/06/19 04:36 MDM - Chest Pain MDM Narrative: Medical decision making narrative: Patient presents here with chest pain that is sharp in nature and has been since her surgery. Patient's pain is pleuritic in nature. Patient's EKG along with x-ray are normal. Patient's lab work including troponin and d-dimer are negative and she has no signs of pulmonary bruising. Patient's pain is improved here after morphine. Will prescribe her Naprosyn and Britton and she is stable for discharge. She is to follow-up with her primary care doctor in 3 to 5 days return if worsening. Lab Data: Labs: Lab Results 09/06/19 09/06/19 09/06/19 Range/Units 04:25 04:25 04:25 WBC 8.6 (4.0-10.0) 10^3/ uL RBC 4.60 (4.1-5.3) 10^6/u L Hgb 13.3 (11.5-15.3) g/dL Hct 41.1 (37.0-47.0) % MCV 89.3 (81-99) fL MCH 28.9 (28.0-34.0) pg MCHC 32.4 (30.0-36.0) g/dL RDW 12.4 (12.1-15.1) % Plt Count 232 (130-400) 10^3/c mm MPV 11.6 H (7.4-10.4) fL Neut % (Auto) 55.4 % Lymph % (Auto) 30.7 % [place] % (Auto) 6.6 % Eos % (Auto) 6.4 % Baso % (Auto) 0.7 % Neut # (Auto) 4.8 (1.8-7.7) 10^3/u L Lymph # (Auto) 2.6 (0.8-4.8) 10^3/u L [place] # (Auto) 0.6 (0.2-0.9) 10^3/u L Eos # (Auto) 0.6 (0.0-0.8) 10^3/u L Baso # (Auto) 0.1 (0.0-0.1) 10^3/u L Nucleated RBC % (a uto) 0 % Nucleated RBCs # 0.0 /100WBC PT 12.40 (10.5-13.3) SECO NDS INR 0.89 (0.8-1.2) D-Dimer 0.37 (0-0.59) ug/mIFE U Sodium 140 (136-145) mmol/L Potassium 4.4 (3.5-5.1) mmol/L Chloride 102 (98-107) mmol/L Carbon Dioxide 26 (22-29) mmol/L Anion Gap 16.4 (5-19) BUN 9 (6-20) mg/dL Creatinine 0.7 (0.5-0.9) mg/dL GFR Calculation 102.8 (90-130) mL/min Glucose 111 (65-115) mg/dL Calculated Osmolal ity 287 (285-295) mOsm/k g Calcium 10.1 (8.5-10.5) mg/dL Total Bilirubin 0.2 (0.15-1.2) mg/dL AST 36 H (0-32) U/L ALT 34 H (0-33) U/L Alkaline Phosphata se 93 (35-105) IU/L Troponin T Baselin e (0-10) ng/mL Total Protein 7.4 (6.6-8.7) g/dL Albumin 4.3 (3.5-5.2) g/dL Globulin 3.1 (1.3-4.6) g/dL 09/06/19 Range/Units 04:25 WBC (4.0-10.0) 10^3/ uL RBC (4.1-5.3) 10^6/u L Hgb (11.5-15.3) g/dL Hct (37.0-47.0) % MCV (81-99) fL MCH (28.0-34.0) pg MCHC (30.0-36.0) g/dL RDW (12.1-15.1) % Plt Count (130-400) 10^3/c mm MPV (7.4-10.4) fL Neut % (Auto) % Lymph % (Auto) % [place] % (Auto) % Eos % (Auto) % Baso % (Auto) % Neut # (Auto) (1.8-7.7) 10^3/u L Lymph # (Auto) (0.8-4.8) 10^3/u L [place] # (Auto) (0.2-0.9) 10^3/u L Eos # (Auto) (0.0-0.8) 10^3/u L Baso # (Auto) (0.0-0.1) 10^3/u L Nucleated RBC % (a uto) % Nucleated RBCs # /100WBC PT (10.5-13.3) SECO NDS INR (0.8-1.2) D-Dimer (0-0.59) ug/mIFE U Sodium (136-145) mmol/L Potassium (3.5-5.1) mmol/L Chloride (98-107) mmol/L Carbon Dioxide (22-29) mmol/L Anion Gap (5-19) BUN (6-20) mg/dL Creatinine (0.5-0.9) mg/dL GFR Calculation (90-130) mL/min Glucose (65-115) mg/dL Calculated Osmolal ity (285-295) mOsm/k g Calcium (8.5-10.5) mg/dL Total Bilirubin (0.15-1.2) mg/dL AST (0-32) U/L ALT (0-33) U/L Alkaline Phosphata se (35-105) IU/L Troponin T Baselin e 6 (0-10) ng/mL Total Protein (6.6-8.7) g/dL Albumin (3.5-5.2) g/dL Globulin (1.3-4.6) g/dL Imaging Data^: CXR: Attestation: I personally reviewed and interpreted this imaging study as follows: My impression: No acute abnormality EKG Data^: EKG 1: Attestation: I personally reviewed and interpreted this EKG as follows: EKG interpretation date: 09/06/19 EKG interpretation time: 04:44 Interpretation: nsr hr [address] or t wave abnormalities qrs 90 qtc 388 Discharge Plan Discharge Patient Disposition: Home, Self-Care Clinical Impression: Chest pain Qualifiers: Chest pain type: unspecified Qualified Code(s): R07.9 - Chest pain, unspecified Condition: Stable Prescriptions: [place] Britton 5-325 mg tablet 1 tab PO Q6H PRN (Reason: pain) Qty: 10 RF: 0 Naprosyn 500 mg tablet 500 mg PO BID PRN (Reason: pain) Qty: 20 RF: 0 No Action norethindrone (contraceptive) [Ortho Micronor] 0.35 mg tablet 0.35 mg PO DAILY RF: 0 albuterol sulfate 90 mcg/actuation aero powdr breath act w/sensor 2 inh INHALATION Q6H RF: 0 sofosbuvir-velpatasvir [Epclusa] 400-100 mg tablet 1 tab PO DAILY 84 Days Qty: 28 RF: 2 hydrocodone-acetaminophen [Britton] 5-325 mg tablet 1 tab PO Q6H PRN (Reason: pain) Qty: 28 RF: 0 Discharge Orders: Discharge Order (Routine); Ordered 09/06/19 Ordered By: Mariam Chang Referrals: Jaye Baires [Primary Care Provider] - 1-3 days Discharge Diet: Advance as tolerated Discharge Activity: Resume usual activity Patient Instructions: Chest Pain (ED) Coding Level of Care Code ED Relief Operator for Chg Fwd Exam Comprehensive
[2019-09-06 04:32] VITALS: RESP 18
[2019-09-06] MEDS: HYDROmorphone 1 mg/mL INJ 1 mL IVP (04:32)
[2019-09-06] MEDS: ondansetron 2 mg/ML SDV 2 mL 4 MG IVP (04:32)
[2019-09-06] MEDS: sodium chloride 0.9% 1,000 ML 999 ML IV (04:33)
[2019-09-06 04:36] VITALS: PULSE 99; RESP 19; O2SAT 97
[2019-09-06 04:50] LABS: INR 0.89 (0.8-1.2)
[2019-09-06 04:51] LABS: Basophils # 0.1 10^3/uL (0.0-0.1); Basophils % 0.7 %; Eosinophils # 0.6 10^3/uL (0.0-0.8); Eosinophils % 6.4 %; Hematocrit 41.1 % (37.0-47.0); Hemoglobin 13.3 g/dL (11.5-15.3); Lymphocytes # 2.6 10^3/uL (0.8-4.8); Lymphocytes % 30.7 %; Mean Corpuscular HGB Conc 32.4 g/dL (30.0-36.0); Mean Corpuscular Hemoglobin 28.9 pg (28.0-34.0); Mean Corpuscular Volume 89.3 fL (81-99); Mean Platelet Volume 11.6 fL (7.4-10.4); Monocytes # 0.6 10^3/uL (0.2-0.9); Monocytes % 6.6 %; Neutrophils # 4.8 10^3/uL (1.8-7.7); Neutrophils % 55.4 %; Nucleated Red Blood Cells % 0 %; Platelet Count 232 10^3/cmm (130-400); Red Cell Distribution Width 12.4 % (12.1-15.1); White Blood Count 8.6 10^3/uL (4.0-10.0)
[2019-09-06 04:52] LABS: D Dimer 0.37 ug/mIFEU (0-0.59)
[2019-09-06 04:57] LABS: Alanine Aminotransferase 34 U/L (0-33); Albumin Level 4.3 g/dL (3.5-5.2); Alkaline Phosphatase 93 IU/L (35-105); Anion Gap 16.4 (5-19); Blood Urea Nitrogen 9 mg/dL (6-20); Calcium 10.1 mg/dL (8.5-10.5); Carbon Dioxide 26 mmol/L (22-29); Chloride 102 mmol/L (98-107); Globulin 3.1 g/dL (1.3-4.6); Glomerular Filtration Rate 102.8 mL/min (90-130); Glucose 111 mg/dL (65-115); Osmolality Calculated 287 mOsm/kg (285-295); Potassium 4.4 mmol/L (3.5-5.1); Sodium 140 mmol/L (136-145); Total Bilirubin 0.2 mg/dL (0.15-1.2); Total Protein 7.4 g/dL (6.6-8.7)
[2019-09-06 04:59] LABS: Troponin(5th) Baseline 6 ng/mL (0-10)
[2019-09-06 05:02] LABS: Aspartate Amino Transferase 36 U/L (0-32)
[2019-09-06 05:52] VITALS: BP 133/69; PULSE 101; RESP 20; O2SAT 98
[2019-09-06] MEDS: HYDROcodone-acetaminophen 7.5-325 mg Tablet 1 TAB PO (06:11)
[2019-09-06] MEDS: ketorolac 30 mg/mL INJ IVP (06:11)
--- NOTE | 2019-09-06 06:16 | PC.NURSE ---
IV d/c'd intact. pressure dressing in place.
--- NOTE | 2019-09-06 06:19 | PC.NURSE ---
Lortab given to Pt. to take home per MD Request
[2019-09-06 06:25] VITALS: BP 135/83; PULSE 86; RESP 18; O2SAT 97
== END 2019-09-06 06:27 | disposition home or self-care (01) ==
PROVIDERS: Emergency Provider Emergency Medicine; PCP Nurse Practitioner Family
DX: R07.9 Chest pain, unspecified (principal); J45.909 Unspecified asthma, uncomplicated; Z86.19 Personal history of other infectious and parasitic diseases; F17.210 Nicotine dependence, cigarettes, uncomplicated
CPT/HCPCS: 12345; 71045; 80053; 84484; 85025; 85378; 85610; 93005; 96361; 96374; 96375; 99282; 99284; J1170; J1885; J2405; J7030

== ENCOUNTER 2019-09-08 11:58 | Emergency (ER) | payer MEDICAID, SELFPAY ==
[2019-09-08 12:02] VITALS: BP 117/81; PULSE 102; RESP 18; TEMP 36.9; O2SAT 97; BMI 30.8
--- NOTE | 2019-09-08 12:03 | ED_ITS ---
HPI - General Adult General: Chief complaint: General Medical Stated complaint: bruising Time Seen by Provider: 09/08/19 12:03 Source: patient Mode of arrival: ambulatory Limitations: no limitations History of Present Illness: HPI narrative: Patient was referred here from the clinic and [place] due to some nausea with belching, gas and diarrhea. Patient also reports some sulfur tasting burps. Patient states that she had had a gallbladder removal on 21 August and has been doing well since then but over the last 2 days started having the symptoms with some chest discomfort. Patient was seen on the fifth in the ER for chest pain and was cleared of cardiac disease. Patient states that she is positive for hepatitis C and was supposed to start treatment within the next week or 2. Associated symptoms: Reports nausea Review of Systems General: Reports: 10 or more systems reviewed and unremarkable except in HPI and below GI: Reports: nausea, diarrhea, bloating, belching and excessive flatus PFS ED PFSH: Medical History (Updated 09/08/19 @ 15:30 by JORDAN Hyde) Asthma Medical management and to be followed up on by PCP service as an outpatient Hepatitis C Surgical History (Updated 09/08/19 @ 15:30 by JORDAN Hyde) History of laparoscopic cholecystectomy (~08/2019) Family History Other Diabetes Denies family history of Anesthesia complication Bleeding disorder Social History Smoking and tobacco status: current some day smoker Alcohol intake: current Adopted: No Lives independently: Yes Marital status: Single History of recent travel: No Current gender identity: Female Female Reproductive History: Date of last menstrual period: 08/08/19 Physical Exam Const: COMMON NORMALS: no acute distress and patient oriented x3 GENERAL APPEARANCE: cooperative HENMT: COMMON NORMALS: normocephalic, TM's normal bilaterally and Normal external nose present HEAD & SCALP: normal to inspection and normocephalic NOSE: Normal external nose present TYMPANIC MEMBRANE: TM's normal bilaterally MOUTH: Normal oral and palatal mucosa present THROAT: posterior oropharynx normal Eye: GENERAL EYE: appearance normal, both eyes and all related structures Neck/C-Spine: COMMON NORMALS: full ROM Lymph: LYMPHATIC: no lymphadenopathy noted Chest: COMMONS NORMALS: normal inspection of the chest Resp: COMMON NORMALS: normal respiratory effort EFFORT & INSPECTION: Yes able to speak in complete sentences Cardio: COMMON NORMALS: regular rate and regular rhythm RATE: regular rate RHYTHM: regular rhythm GI: COMMON NORMALS: Soft to palpation INSPECTION: Yes normal to inspection AUSCULTATION: Yes Hyperactive bowel sounds present PALPATION: Yes Soft to palpation, Yes Tenderness to palpation present (GI), No Guarding due to palpation present (GI) and No Rigid due to palpation : COMMON NORMALS: Yes no CVA tenderness BLADDER/KIDNEY EXAM: Yes no CVA tenderness Back/Pelvis: COMMON NORMALS: no CVA tenderness and thoracic and lumbar spine normal to inspection Extremity: COMMON NORMALS: normal to inspection Neuro: COMMON NORMALS: patient oriented x3 and moves all extremities Psych: COMMON NORMALS: mental status grossly normal and cooperative Skin: COMMON NORMALS: no rashes or lesions noted GENERAL SKIN EXAM: no r ashes or lesions noted Course ED course: 1420, KUB x-ray noted mild ileus, ultrasound was unremarkable status post cholecystectomy. Reviewed with patient and discussed her pain that she had 2 days ago prior to the onset of the symptoms. Patient states his pain is better now but she does continue to have some soreness patient states that when compared to the pain 2 days ago as it was a 10 today's pain is more like a 6. [id number], talk to Dr. Ledesma, surgeon, he recommended transport patient to a facility where a printing agent could assist with possible stenting of the common bile duct. [id number] Downey at [facility] in [place]. He agreed to admission to the hospital on medical floor for further evaluation and treatment of cholangiectasias. Vital Signs: Vital signs: Vital Signs Temperature 98.4 F 09/08/19 12:02 Pulse Rate 89 09/08/19 15:29 Respiratory Rate 14 09/08/19 15:29 Blood Pressure 120/64 09/08/19 15:29 Pulse Oximetry 98 09/08/19 15:29 MDM - General Adult MDM Narrative: Medical decision making narrative: Patient came in today for complaints of abdominal pain and gastroenteritis symptoms. Patient appears mildly unwell. Exam notes that patient skin is slightly jaundiced. Respirations are even lungs are clear to auscultation. Abdomen slightly tender. Bowel sounds are present throughout. Vital signs are normal without fever. Differential diagnosis includes cholangitis, chollangiectasis, gastroenteritis. Laboratory values noted to increase in the AST is ALTs, alk phos and bilirubin. CT of abdomen pelvis noted some common bile duct dilatation, ultrasound noted no abnormalities. Discussed with Dr. Callahan who recommended that we talk with the surgeon on-call for further recommendations. Dr. Ledesma, surgeon, recommended further evaluation by gastroenterology due to risk of common bile duct obstruction and need for stenting of the common bile duct. Reviewed exam with patient with recommendations for further treatment with gastroenterology at a facility in [place]. Patient had no preference to the facility. Discussed with Dr. Downey at [facility] in [place] who accepted patient for further evaluation and treatment. Lab Data: Labs: Lab Results 09/08/19 09/08/19 09/08/19 Range/Units 12:27 12:27 12:35 WBC 5.2 (4.0-10.0) 10^3/ uL RBC 4.53 (4.1-5.3) 10^6/u L Hgb 13.2 (11.5-15.3) g/dL Hct 41.7 (37.0-47.0) % MCV 92.1 (81-99) fL MCH 29.1 (28.0-34.0) pg MCHC 31.7 (30.0-36.0) g/dL RDW 12.9 (12.1-15.1) % Plt Count 220 (130-400) 10^3/c mm MPV 11.4 H (7.4-10.4) fL Neut % (Auto) 59.2 % Lymph % (Auto) 26.3 % [place] % (Auto) 7.1 % Eos % (Auto) 6.6 % Baso % (Auto) 0.8 % Neut # (Auto) 3.1 (1.8-7.7) 10^3/u L Lymph # (Auto) 1.4 (0.8-4.8) 10^3/u L [place] # (Auto) 0.4 (0.2-0.9) 10^3/u L Eos # (Auto) 0.3 (0.0-0.8) 10^3/u L Baso # (Auto) 0.0 (0.0-0.1) 10^3/u L Nucleated RBC % (a uto) 0 % Nucleated RBCs # 0.0 /100WBC Sodium 138 (136-145) mmol/L Potassium 4.3 (3.5-5.1) mmol/L Chloride 107 (98-107) mmol/L Carbon Dioxide 18 L (22-29) mmol/L Anion Gap 17.3 (5-19) BUN 7 (6-20) mg/dL Creatinine 0.6 (0.5-0.9) mg/dL GFR Calculation 122.8 (90-130) mL/min Glucose 100 (65-115) mg/dL Calculated Osmolal ity 282 L (285-295) mOsm/k g Calcium 9.1 (8.5-10.5) mg/dL Total Bilirubin 4.3 H (0.15-1.2) mg/dL AST 254 H (0-32) U/L ALT 330 H (0-33) U/L Alkaline Phosphata se 242 H (35-105) IU/L Total Protein 7.6 (6.6-8.7) g/dL Albumin 4.6 (3.5-5.2) g/dL Globulin 3.0 (1.3-4.6) g/dL Lipase 35 (13-60) U/L Urine Color Yellow (Yellow) Urine Appearance Clear (CLEAR) Urine pH 5 (5-7) Ur Specific Gravit y 1.010 (1.005-1.030) Urine Protein Neg (Negative) Urine Glucose (UA) Norm (Normal) Urine Ketones Negative (Negative) Urine Blood 2+ H (Negative) Urine Nitrate Negative (Negative) Urine Bilirubin 1+ H (NEGATIVE) Prot Sulfosalicyli c Acd Negative (Negative) Urine Urobilinogen Norm (Negative) mg/dL Ur Leukocyte [place] ase Negative (Negative) Urine RBC None (0-2) /hpf Urine WBC None (0-5) /hpf Ur Squamous Epith Cells 0-4 H (0-5) Urine Bacteria Trace (NONE) Urine Mucus Trace Discharge Plan Discharge Patient Disposition: Xfer Other Clinical Impression: Cholangiectasis, Hx of cholecystectomy Condition: Stable Referrals: Jaye Baires [Primary Care Provider] - Coding Level of Care Code ED Sulfonator Operator for Chg Fwd Exam Comprehensive
--- NOTE | 2019-09-08 12:16 | XRR_ITS ---
PROCEDURE INFORMATION: Exam: XR Abdomen, 1 View Exam date and time: 09/08/2019 12:18 PM Age: 24 years old Clinical indication: Abdominal pain; Additional info: Abd pain TECHNIQUE: Imaging protocol: XR of the abdomen. Views: Frontal supine view of the abdomen. 1 View. COMPARISON: CR XR KUB [id number] 08/21/2019 10:51 PM FINDINGS: Gastrointestinal tract: There is multiple dilated gas-filled bowel loops consistent with moderate ileus. This finding has increased since prior examination. Bones/joints: Unremarkable. XR/XR KUB portable [id number] IMPRESSION: 1. Moderate ileus 2. Otherwise negative examination
[2019-09-08 12:33] VITALS: BP 110/78; PULSE 104; RESP 16; O2SAT 98
[2019-09-08 12:34] LABS: Basophils % 0.8 %; Eosinophils # 0.3 10^3/uL (0.0-0.8); Eosinophils % 6.6 %; Hematocrit 41.7 % (37.0-47.0); Hemoglobin 13.2 g/dL (11.5-15.3); Lymphocytes # 1.4 10^3/uL (0.8-4.8); Lymphocytes % 26.3 %; Mean Corpuscular HGB Conc 31.7 g/dL (30.0-36.0); Mean Corpuscular Hemoglobin 29.1 pg (28.0-34.0); Mean Corpuscular Volume 92.1 fL (81-99); Mean Platelet Volume 11.4 fL (7.4-10.4); Monocytes # 0.4 10^3/uL (0.2-0.9); Monocytes % 7.1 %; Neutrophils # 3.1 10^3/uL (1.8-7.7); Neutrophils % 59.2 %; Nucleated Red Blood Cells % 0 %; Platelet Count 220 10^3/cmm (130-400); Red Blood Count 4.53 10^6/uL (4.1-5.3); Red Cell Distribution Width 12.9 % (12.1-15.1); White Blood Count 5.2 10^3/uL (4.0-10.0)
[2019-09-08 12:40] LABS: Add Urine Microscopic? YES; Bilirubin Urine 1+ (NEGATIVE); Blood Urine 2+ (Negative); Glucose Urine UA Norm (Normal); Ketones Urine Negative (Negative); Leukocyte Esterase Urine Negative (Negative); Nitrate Urine Negative (Negative); Protein Urine Neg (Negative); Sulfosalicylic Acid Urine Negative (Negative); Urine Appearance Clear (CLEAR); Urine Color Yellow (Yellow); Urobilinogen Urine Norm (Negative); pH Urine 5 (5-7)
[2019-09-08 12:49] LABS: Alanine Aminotransferase 330 U/L (0-33); Albumin Level 4.6 g/dL (3.5-5.2); Alkaline Phosphatase 242 IU/L (35-105); Anion Gap 17.3 (5-19); Aspartate Amino Transferase 254 U/L (0-32); Blood Urea Nitrogen 7 mg/dL (6-20); Calcium 9.1 mg/dL (8.5-10.5); Carbon Dioxide 18 mmol/L (22-29); Chloride 107 mmol/L (98-107); Glomerular Filtration Rate 122.8 mL/min (90-130); Glucose 100 mg/dL (65-115); Lipase 35 U/L (13-60); Osmolality Calculated 282 mOsm/kg (285-295); Potassium 4.3 mmol/L (3.5-5.1); Sodium 138 mmol/L (136-145); Total Bilirubin 4.3 mg/dL (0.15-1.2); Total Protein 7.6 g/dL (6.6-8.7)
[2019-09-08] MEDS: lactated ringers 1,000 ML 999 ML IV ×2 (13:03→17:27)
[2019-09-08] MEDS: ondansetron 2 mg/ML SDV 2 mL 4 MG IVP ×2 (13:04→17:27)
--- NOTE | 2019-09-08 13:08 | USR_ITS ---
PROCEDURE INFORMATION: Exam: US Abdomen Limited, Right Upper Quadrant Exam date and time: 09/08/2019 1:48 PM Age: 24 years old Clinical indication: Abnormal findings; Abnormal lab test; Elevated liver enzymes; Prior surgery; Surgery date: <1 month; Surgery type: Cholecystectomy; Additional info: Ruq, recent gallbladder surgery, elevated liver enzymes TECHNIQUE: Imaging protocol: Real-time ultrasound of the abdomen with image documentation. Examination was focused on the right upper quadrant. COMPARISON: US gall bladder [id number] 08/22/2019 1:15 AM FINDINGS: Liver: Normal. No masses. The liver span is 13.4 cm. Gallbladder: Cholecystectomy Common bile duct: Normal. No stones. No dilation. 10.8 mm rule a Pancreas: Visualized pancreas is unremarkable. Right kidney: Normal. No mass. No hydronephrosis. 10.7 cm x 4.6 cm x 4.6 cm. Other findings: No additional findings US/US abdomen limited [id number] IMPRESSION: 1. Status post cholecystectomy 2. Otherwise negative examination
--- NOTE | 2019-09-08 13:08 | CTR_ITS ---
PROCEDURE INFORMATION: Exam: CT Abdomen And Pelvis With Contrast Exam date and time: 09/08/2019 1:29 PM Age: 24 years old Clinical indication: Abdominal pain; Generalized; Prior surgery; Surgery type: Gb; Patient HX: C/O abd discomfort, gassy and diarrhea; Additional info: Elevated liver enzymes, recent pavan. TECHNIQUE: Imaging protocol: Computed tomography of the abdomen and pelvis with intravenous contrast. Radiation optimization: All CT scans at this facility use at least one of these dose optimization techniques: automated exposure control; mA and/or kV adjustment per patient size (includes targeted exams where dose is matched to clinical indication); or iterative reconstruction. Contrast material: OMNI 300; Contrast volume: 95 ml; Contrast route: 22G; COMPARISON: CT abdomen pelvis w con* [id number] 08/21/2019 11:24 PM RADIATION DOSE METRICS: Total DLP: 1303.98 mGy-cm FINDINGS: Liver: Normal. No mass. Gallbladder and bile ducts: Interval cholecystectomy. Mild biliary ductal dilatation with prominent common bile duct measuring 11 mm. Appearance is nonspecific and may be normal following cholecystectomy. No calcified common duct stone evident. Pancreas: Normal. No ductal dilation. Spleen: Normal. No splenomegaly. Adrenals: Normal. No mass. Kidneys and ureters: Normal. No hydronephrosis. Stomach and bowel: Liquid stool in right side of colon may indicate diarrheal disease. No colonic wall thickening evident. Appendix: No evidence of appendicitis. Intraperitoneal space: Unremarkable. No free air. No significant fluid collection. Vasculature: Unremarkable. No abdominal aortic aneurysm. Lymph nodes: Unremarkable. No enlarged lymph nodes. Bladder: Unremarkable as visualized. Reproductive: 3.8 x 2.5 cm posterior right ovarian cyst. Bones/joints: Unremarkable. No acute fracture. Soft tissues: Unremarkable. CT/CT abdomen pelvis w con* [id number] IMPRESSION: 1.) Interval cholecystectomy. Mild biliary ductal dilatation with prominent common bile duct measuring 11 mm. 2.) Possible diarrheal disease with liquid stool in right side of colon. 3.) 3.8 x 2.5 cm right ovarian cyst. Radiation Dose CTDIVOL = (mGy): DLP = 1303.98 (mGy-cm)
[2019-09-08 13:12] LABS: Bacteria Urine TRACE; Mucus Urine TRACE; Squamous Epithelial Cell Urine 0-4 (0-5)
[2019-09-08 13:13] LABS: Add Urine Culture? No
[2019-09-08 13:47] VITALS: BP 104/71; PULSE 85; RESP 14; O2SAT 97
[2019-09-08] MEDS: iohexol 300 mg/mL 100 mL Btl IV (14:04)
[2019-09-08 15:29] VITALS: BP 120/64; PULSE 89; RESP 14; O2SAT 98
[2019-09-08 16:05] LABS: INR 0.95 (0.8-1.2)
[2019-09-08 17:29] VITALS: BP 112/69; PULSE 93; RESP 14; O2SAT 97
== END 2019-09-08 17:32 | disposition other institution (70) ==
PROVIDERS: Emergency Provider Nurse Practitioner Family; PCP Nurse Practitioner Family
DX: K83.8 Other specified diseases of biliary tract (principal); Z90.49 Acquired absence of other specified parts of digestive tract; Z86.19 Personal history of other infectious and parasitic diseases; F17.210 Nicotine dependence, cigarettes, uncomplicated
CPT/HCPCS: 12345; 36415; 74018; 74177; 76705; 80053; 81001; 83690; 85025; 85610; 96365; 96375; 96376; 99282; 99283; J2405; Q9967

== ENCOUNTER → 2019-10-29 11:10 | Outpatient (BNVA) | payer MEDICAID, SELFPAY | PROVIDERS: PCP Nurse Practitioner Family; Visit Provider Internal Medicine | DX: B18.2 Chronic viral hepatitis C (principal) | CPT/HCPCS: 87522 ==

== ENCOUNTER → 2019-11-25 13:32 | Outpatient (BNVA) | payer MEDICAID, SELFPAY | PROVIDERS: PCP Nurse Practitioner Family; Visit Provider Specialist | DX: R25.1 Tremor, unspecified (principal); F17.210 Nicotine dependence, cigarettes, uncomplicated | CPT/HCPCS: 99203 ==

== ENCOUNTER 2019-11-26 13:48 | Outpatient (CLI) | payer MEDICAID, SELFPAY ==
[2019-11-26 15:03] LABS: Free T4 Free Thyroxine 1.17 ng/dL (0.82-1.77); T3 Free 3.1 PG/ML (2.0-4.4)
== END 2019-11-26 13:49 | disposition home or self-care (01) ==
LOC: LAB 13:51
PROVIDERS: PCP Nurse Practitioner Family; Visit Provider Specialist
DX: R25.1 Tremor, unspecified (principal)
CPT/HCPCS: 36415; 84439; 84481

== ENCOUNTER → 2020-01-01 16:28 | Outpatient (BNVA) | payer MEDICAID, SELFPAY | PROVIDERS: PCP Nurse Practitioner Family; Visit Provider Internal Medicine | DX: B18.2 Chronic viral hepatitis C (principal); B19.20 Unspecified viral hepatitis C without hepatic coma | CPT/HCPCS: 87522 ==

== ENCOUNTER 2020-01-13 21:47 | Emergency (ER) | payer MEDICAID, SELFPAY ==
[2020-01-13 22:03] VITALS: BP 116/78; PULSE 98; RESP 20; TEMP 36.7; O2SAT 98; BMI 19.1
--- NOTE | 2020-01-13 22:12 | ECG_ITS ---
[facility] Test Date: 2020-01-13 Pat Name: Althea Barrow Department: Room: Gender: Female Referral Specialist: ANDRAE : 1995 Requested By: Yancy Tucker Order Number: [id number] Westley MD: Jos Monteiro M.D. Measurements Intervals [place] Rate: 93 P: 59 FL: 125 QRS: 55 QRSD: 88 T: 45 QT: 334 QTc: 416 Interpretive Statements SINUS RHYTHM Compared to ECG 09/06/2019 04:44:31 No significant changes Electronically Signed On 01-14-2020 13:20:49 CDT by Jos Monteiro M.D. [id number] f
--- NOTE | 2020-01-13 22:12 | XRR_ITS ---
PROCEDURE INFORMATION: Exam: XR Chest, 1 View Exam date and time: 01/13/2020 10:54 PM Age: 24 years old Clinical indication: Left-sided chest pain; Patient HX: Cp left side under breast, SOB TECHNIQUE: Imaging protocol: XR of the chest Views: 1 view. COMPARISON: CR XR chest 1V portable [id number] 09/06/2019 5:04 AM FINDINGS: Lungs: No lung consolidation or pulmonary edema. Pleural space: No pleural effusion or pneumothorax. Heart/Mediastinum: The cardiac silhouette is not enlarged. The mediastinal contours are normal. Bones/joints: No acute osseous abnormality. XR/XR chest 1V portable [id number] IMPRESSION: No acute abnormality.
[2020-01-13 23:25] LABS: Basophils # 0.1 10^3/uL (0.0-0.1); Basophils % 0.8 %; Eosinophils # 0.7 10^3/uL (0.0-0.8); Eosinophils % 7.2 %; Hematocrit 36.9 % (37.0-47.0); Hemoglobin 11.5 g/dL (11.5-15.3); Lymphocytes # 2.5 10^3/uL (0.8-4.8); Lymphocytes % 23.8 %; Mean Corpuscular HGB Conc 31.2 g/dL (30.0-36.0); Mean Corpuscular Hemoglobin 29.1 pg (28.0-34.0); Mean Corpuscular Volume 93.4 fL (81-99); Mean Platelet Volume 11.6 fL (7.4-10.4); Monocytes # 0.6 10^3/uL (0.2-0.9); Monocytes % 6.1 %; Neutrophils % 61.8 %; Nucleated Red Blood Cells % 0 %; Platelet Count 217 10^3/cmm (130-400); Red Blood Count 3.95 10^6/uL (4.1-5.3); Red Cell Distribution Width 12.5 % (12.1-15.1); White Blood Count 10.3 10^3/uL (4.0-10.0)
[2020-01-13 23:36] LABS: INR 0.89 (0.8-1.2)
[2020-01-13 23:37] LABS: Partial Thromboplastin Time 26.6 SECONDS (23.9-36.7)
[2020-01-13 23:39] LABS: D Dimer 0.36 ug/mIFEU (0-0.59)
[2020-01-13 23:42] LABS: Troponin(5th) Baseline 6 ng/L (0-10)
[2020-01-14 00:44] LABS: Alanine Aminotransferase 10 U/L (0-33); Albumin Level 3.9 g/dL (3.5-5.2); Alkaline Phosphatase 72 IU/L (35-105); Anion Gap 18.4 (5-19); Aspartate Amino Transferase 14 U/L (0-32); Blood Urea Nitrogen 9 mg/dL (6-20); Carbon Dioxide 20 mmol/L (22-29); Chloride 105 mmol/L (98-107); Creatine Phosphokinase 72 U/L (26-192); Creatinine Clr Calc Pharmacy 148.8842; Globulin 2.5 g/dL (1.3-4.6); Glomerular Filtration Rate 122.8 mL/min (90-130); Glucose 104 mg/dL (65-115); Lipase 29 U/L (13-60); NT Pro B Type Natriuretic Pept 42 pg/mL (0-125); Osmolality Calculated 287 mOsm/kg (285-295); Potassium 4.4 mmol/L (3.5-5.1); Sodium 139 mmol/L (136-145); Total Bilirubin 0.2 mg/dL (0.15-1.2); Total Protein 6.4 g/dL (6.6-8.7)
--- NOTE | 2020-01-14 01:17 | W.ED.CHESTPA ---
HPI - Chest Pain General: Chief Complaint: Chest Pain Stated Complaint: cp Time Seen by Provider: 01/14/20 01:17 History of Present Illness: HPI narrative: Patient is a 24-year-old female comes to the ED with epigastric/chest pain. Patient has a past medical history of hepatitis C, asthma, acid reflux and takes pantoprazole. She had a cholecystectomy back in August 2019. Pain started yesterday morning at rest when she woke up. She says the pain is located right in the epigastric region and left lower chest. She rates the pain a 7 out of 10. Pain is described intermittent, aching and sharp. Associated symptoms: Deny abdominal pain, dyspnea, fever(s), nausea, palpitations or vomiting Review of Systems Const: Denies: fever(s), chills or fatigue Eyes: Denies: change in vision or eye discomfort ENMT: Denies: throat pain, odynophagia, nasal discharge or nasal congestion Card: Reports: chest pain (epigastric region); Denies: palpitations, edema, swelling of feet/ankles, dyspnea on exertion or orthopnea Resp: Denies: dyspnea, productive cough or non-productive cough GI: Denies: abdominal pain, nausea, vomiting, diarrhea, constipation or hematochezia : Denies: flank pain, dysuria or hematuria Musc: Denies: neck pain, back pain or extremity swelling Skin/Breast: Denies: rash or new lesions Neuro: Denies: headache(s), numbness in extremities or weakness in extremities PFSH ED PFSH: Medical History Asthma Medical management and to be followed up on by PCP service as an outpatient Breast feeding status of mother Hepatitis C She completed 3 months of Epclusa in 2019 Surgical History History of laparoscopic cholecystectomy (~08/2019) Family History Other Diabetes Denies family history of Anesthesia complication Bleeding disorder Social History Smoking and tobacco status: former smoker Alcohol intake: current Adopted: No Lives independently: Yes Marital status: Single History of recent travel: No Current gender identity: Female Female Reproductive History: Date of last menstrual period: 08/08/19 Physical Exam Const: COMMON NORMALS: patient oriented x3, healthy appearing and alert GENERAL APPEARANCE: cooperative and comfortable HENMT: COMMON NORMALS: normocephalic HEAD & SCALP: normocephalic MOUTH: Normal oral and palatal mucosa present THROAT: posterior oropharynx normal and uvula midline Neck/C-Spine: COMMON NORMALS: supple GENERAL: Yes normal visual inspection Resp: COMMON NORMALS: normal respiratory effort, No retractions, No use of accessory muscles and clear to auscultation bilaterally AUSCULTATION: clear to auscultation bilaterally Cardio: COMMON NORMALS: regular rate, regular rhythm, S1 normal heart sound present, S2 normal heart sound present, No gallops present (Cardio), No clicks present (Cardio), No murmurs present (Cardio) and Peripheral pulses 2+ throughout RATE: regular rate RHYTHM: regular rhythm HEART SOUNDS: S1 normal heart sound present and S2 normal heart sound present PERIPHERAL PULSES: Peripheral pulses 2+ throughout GI: COMMON NORMALS: Normal to inspection, nondistended, normoactive bowel sounds present, Soft to palpation and no masses PALPATION: Yes Soft to palpation and Yes Tenderness to palpation present (GI) (Epigastric tenderness.) : COMMON NORMALS: Yes no CVA tenderness BLADDER/KIDNEY EXAM: Yes no CVA tenderness Back/Pelvis: COMMON NORMALS: no CVA tenderness Extremity: COMMON NORMALS: normal to inspection and no pedal edema Neuro: COMMON NORMALS: patient oriented x3 and moves all extremities SENSORIUM/ORIENTATION: Yes alert Skin: COMMON NORMALS: no rashes or lesions noted GENERAL SKIN EXAM: no rashes or lesions noted and dry skin Course Reevaluation(s): Reevaluation #1: Patient was given GI cocktail see if she had any improvement in her epigastric/chest pain. Patient says that she did have some improvement in the sharp pain in her chest that is now gone. She says pain tolerable and she would like to be discharged. Time: 02:20 Vital Signs: Vital signs: Vital Signs Temperature 98.1 F 01/13/20 22:03 Pulse Rate 89 01/14/20 02:49 Respiratory Rate 16 01/14/20 02:49 Blood Pressure 107/61 01/14/20 02:49 Pulse Oximetry 96 01/14/20 02:49 MDM - Chest Pain MDM Narrative: Medical decision making narrative: Patient is a 24-year-old female comes the ED with epigastric chest pain. Patient has a history of acid reflux and takes pantoprazole. Symptoms started approximately 2 days ago. CBC and CMP were unremarkable. EKG showed normal sinus rhythm with no ST segment elevation or depression seen. Troponins were negative. Chest x-ray showed no acute findings. Patient was given a GI cocktail and her pain improved. She was diagnosed with noncardiac chest pain discharge. She is told to continue taking her pantoprazole to help with acid reflux and to follow-up with PCP in 7 to 10 days. Return to ED precautions given. Patient understood and agreed with plan. Lab Data: Attestation: I reviewed the patient's lab results. Labs: Lab Results 01/13/20 01/13/20 01/13/20 Range/Units 23:16 23:16 23:16 WBC 10.3 H (4.0-10.0) 10^3/ uL RBC 3.95 L (4.1-5.3) 10^6/u L Hgb 11.5 (11.5-15.3) g/dL Hct 36.9 L (37.0-47.0) % MCV 93.4 (81-99) fL MCH 29.1 (28.0-34.0) pg MCHC 31.2 (30.0-36.0) g/dL RDW 12.5 (12.1-15.1) % Plt Count 217 (130-400) 10^3/c mm MPV 11.6 H (7.4-10.4) fL Neut % (Auto) 61.8 % Lymph % (Auto) 23.8 % [place] % (Auto) 6.1 % Eos % (Auto) 7.2 % Baso % (Auto) 0.8 % Neut # (Auto) 6.40 (1.8-7.7) 10^3/u L Lymph # (Auto) 2.5 (0.8-4.8) 10^3/u L [place] # (Auto) 0.6 (0.2-0.9) 10^3/u L Eos # (Auto) 0.7 (0.0-0.8) 10^3/u L Baso # (Auto) 0.1 (0.0-0.1) 10^3/u L Nucleated RBC % (a uto) 0 % Nucleated RBCs # 0.0 /100WBC PT 12.30 (12.1-14.9) SECO NDS INR 0.89 (0.8-1.2) APTT 26.6 (23.9-36.7) SECO NDS D-Dimer 0.36 (0-0.59) ug/mIFE U Sodium 139 (136-145) mmol/L Potassium 4.4 (3.5-5.1) mmol/L Chloride 105 (98-107) mmol/L Carbon Dioxide 20 L (22-29) mmol/L Anion Gap 18.4 (5-19) BUN 9 (6-20) mg/dL Creatinine 0.6 (0.5-0.9) mg/dL GFR Calculation 122.8 (90-130) mL/min Glucose 104 (65-115) mg/dL Calculated Osmolal ity 287 (285-295) mOsm/k g Calcium 9.0 (8.5-10.5) mg/dL Total Bilirubin 0.2 (0.15-1.2) mg/dL AST 14 (0-32) U/L ALT 10 (0-33) U/L Alkaline Phosphata se 72 (35-105) IU/L Creatine Kinase 72 (26-192) U/L Troponin T Baselin e (0-10) ng/L NT-Pro-B Natriuret Pep 42 (0-125) pg/mL Total Protein 6.4 L (6.6-8.7) g/dL Albumin 3.9 (3.5-5.2) g/dL Globulin 2.5 (1.3-4.6) g/dL Lipase 29 (13-60) U/L 01/13/20 Range/Units 23:16 WBC (4.0-10.0) 10^3/ uL RBC (4.1-5.3) 10^6/u L Hgb (11.5-15.3) g/dL Hct (37.0-47.0) % MCV (81-99) fL MCH (28.0-34.0) pg MCHC (30.0-36.0) g/dL RDW (12.1-15.1) % Plt Count (130-400) 10^3/c mm MPV (7.4-10.4) fL Neut % (Auto) % Lymph % (Auto) % [place] % (Auto) % Eos % (Auto) % Baso % (Auto) % Neut # (Auto) (1.8-7.7) 10^3/u L Lymph # (Auto) (0.8-4.8) 10^3/u L [place] # (Auto) (0.2-0.9) 10^3/u L Eos # (Auto) (0.0-0.8) 10^3/u L Baso # (Auto) (0.0-0.1) 10^3/u L Nucleated RBC % (a uto) % Nucleated RBCs # /100WBC PT (12.1-14.9) SECO NDS INR (0.8-1.2) APTT (23.9-36.7) SECO NDS D-Dimer (0-0.59) ug/mIFE U Sodium (136-145) mmol/L Potassium (3.5-5.1) mmol/L Chloride (98-107) mmol/L Carbon Dioxide (22-29) mmol/L Anion Gap (5-19) BUN (6-20) mg/dL Creatinine (0.5-0.9) mg/dL GFR Calculation (90-130) mL/min Glucose (65-115) mg/dL Calculated Osmolal ity (285-295) mOsm/k g Calcium (8.5-10.5) mg/dL Total Bilirubin (0.15-1.2) mg/dL AST (0-32) U/L ALT (0-33) U/L Alkaline Phosphata se (35-105) IU/L Creatine Kinase (26-192) U/L Troponin T Baselin e 6 (0-10) ng/L NT-Pro-B Natriuret Pep (0-125) pg/mL Total Protein (6.6-8.7) g/dL Albumin (3.5-5.2) g/dL Globulin (1.3-4.6) g/dL Lipase (13-60) U/L Imaging Data^: CXR: Attestation: I personally reviewed and interpreted this imaging study as follows: My impression: Chest x-ray showed no acute findings. EKG Data^: EKG 1: Attestation: I personally reviewed and interpreted this EKG as follows: EKG interpretation date: 01/14/20 Interpretation: Sinus rhythm, 84 bpm, no ST segment elevation or depression seen. Discharge Plan Discharge Patient Disposition: Home Clinical Impression: Chest pain, non-cardiac Condition: Stable Prescriptions: No Action indomethacin 50 mg capsule 50 mg PO TID 7 Days Qty: 21 RF: 0 albuterol sulfate 90 mcg/actuation aero powdr breath act w/sensor 1 inh INHALATION Q6H PRN (Reason: Shortness Of Breath) RF: 0 loratadine 10 mg tablet 10 mg PO DAILY RF: 0 fluoxetine 20 mg tablet 20 mg PO DAILY RF: 0 Sprintec (28) 0.25-35 mg-mcg tablet See Rx Instructions .ROUTE .COMPLEX RF: 0 Discharge Orders: Discharge Order (Routine); Ordered 01/14/20 Ordered By: Naren Polanco Referrals: Jaye Baires FNP [Primary Care Provider] - Discharge Diet: Regular Discharge Activity: Resume usual activity Patient Instructions: Noncardiac Chest Pain (ED) Activity Restrictions/Additional Instructions: Follow-up with medical provider as directed in 7-10 days. Continue taking home medications as prescribed. Return to the ER or your medical provider if condition worsens. Please read and understand discharge instructions. If any questions, please ask. Discharge Date/Time: 01/14/20 02:51 Coding Level of Care Code ED Manager [employer] for [facility] Fwd Exam Comprehensive
[2020-01-14 01:51] VITALS: BP 123/82; PULSE 85; RESP 18; O2SAT 99
[2020-01-14] MEDS: lidocaine 2% viscous 15 ML, aluminum-mag hydrox-simethicon 30 ML, sucralfate oral liq 1 GM PO (01:51)
[2020-01-14 02:00] VITALS: BP 107/61; PULSE 98; RESP 17; O2SAT 98
[2020-01-14 02:49] VITALS: BP 107/61; PULSE 89; RESP 16; O2SAT 96
== END 2020-01-14 02:51 | disposition home or self-care (01) ==
PROVIDERS: Emergency Medicine; Emergency Provider Physician Assistant; PCP Nurse Practitioner Family
DX: R07.89 Other chest pain (principal); Z86.19 Personal history of other infectious and parasitic diseases; Z87.891 Personal history of nicotine dependence
CPT/HCPCS: 12345; 71045; 80053; 82550; 83690; 83880; 84484; 85025; 85378; 85610; 85730; 93005; 99281; 99283

== ENCOUNTER → 2020-02-13 10:05 | Outpatient (BNVA) | payer MEDICAID, SELFPAY | PROVIDERS: PCP Nurse Practitioner Family; Visit Provider Nurse Practitioner Family | DX: Z11.59 Encounter for screening for other viral diseases (principal); K21.9 Gastro-esophageal reflux disease without esophagitis | CPT/HCPCS: 87635 ==

== ENCOUNTER 2020-02-19 09:32 | Day surgery (SDC) | payer MEDICAID, SELFPAY ==
[2020-02-19 10:42] VITALS: BP 116/71; PULSE 91; RESP 18; TEMP 36.1; O2SAT 96
[2020-02-19 10:42] LABS: OR HCG Qualitative Urine Negative (Negative)
--- NOTE | 2020-02-19 10:49 | W.PM.OPSUD ---
Surgery/Procedure H&P Update DATE OF PROCEDURE: February 19, 2020 DATE H&P PERFORMED: 02/13/20 H&P UPDATE INFORMATION: I have reviewed H&P completed within last 30 days, I have examined patient prior to procedure and No changes to prior documentation PREOP DIAGNOSIS: Acid Reflux PRIMARY INDICATION FOR PROCEDURE: The same PLANNED PROCEDURE: Operation Date: 02/19/20 10:45 Proposed Procedures p EGD 07778 K21.9(Not Applicable) - Juan Hilliard MD
[2020-02-19] MEDS: sodium chloride 0.9% 1,000 ML 30 ML IV (10:52)
--- NOTE | 2020-02-19 11:01 | ANES.PREANE2 ---
Pre-Anesthetic Assessment Pre-Anesthetic Assessment: Height/Weight: Height 1.78 m Weight 106.594 kg Temp Pulse Resp BP Pulse Ox 97 F L 91 18 116/71 96 02/19/20 10:42 02/19/20 10:42 02/19/20 10:42 02/19/20 10:42 02/19/20 10:42 Preop Diagnosis: Acid Reflux Proposed Procedure: Operation Date: 02/19/20 10:45 Proposed Procedures p EGD 56494 K21.9(Not Applicable) - Juan Hilliard MD Familial anesthetic complications: None Was Beta Adam taken within 24 hours: N/A Last intake: Intake Last Liquid Date 02/18/20 Last Liquid Time 21:00 Last Solid Date 02/18/20 Last Solid Time 18:30 Social: Social History: Tobacco Exam: Pre-Anes Outpt Exam: alert, oriented x 3, clear to auscultation bilaterally and regular rate & rhythm Airway: Cervical ROM: WNL MP: 3 Dentition: Other (chipped and missing (poor dentition)) Pulmonary: Pulmonary: Asthma Hepatic: Hepatic: Hepatitis (C) Metabolic: Metabolic: Morbid obesity Anesthetic Plan: ASA status: 2 Anesthesia: MAC Risk of > 500 ml blood loss (7ml/kg in children): No Meds/Allergies Current Medications: Current Medications Generic Name Dose Route Start Last Admin Trade Name Freq PRN Reason Stop Dose Admin Sodium Chloride 1,000 mls @ 30 ml s/hr 02/19/20 10:30 02/19/20 10:52 Sodium Chloride 0.9% IV 02/20/20 10:29 30 mls/hr .Q24H ANN Administration PFSH Anesthesia PFSH: Medical History Asthma Medical management and to be followed up on by PCP service as an outpatient Breast feeding status of mother Hepatitis C She completed 3 months of Epclusa in 2019 Surgical History History of laparoscopic cholecystectomy (~08/2019) Family History Other Diabetes Denies family history of Anesthesia complication Bleeding disorder Social History Smoking and tobacco status: former smoker Alcohol intake: current Adopted: No Lives independently: Yes Marital status: Single History of recent travel: No Current gender identity: Female Female Reproductive History: Date of last menstrual period: 08/08/19 Data Anesthesia Other Labs: Laboratory Results - last 48 hr 02/19/20 10:41 Urine HCG, Qual Negative Cardiac Studies: No Data to Display
[2020-02-19 12:58] VITALS: BP 105/68; PULSE 105; RESP 18; TEMP 36.7
[2020-02-19 13:15] VITALS: BP 122/66; PULSE 100; RESP 18; TEMP 36.8; O2SAT 96
--- NOTE | 2020-02-19 21:08 | ANE.PACU2 ---
Inpatient post-anesthesia follow up: Airway intact: Yes Vital signs: Temperature 98.2 F Pulse Rate 100 Respiratory Rate 18 Blood Pressure 122/66 Pulse Oximetry 96 Oxygen Delivery Me thod Room Air Oxygen Flow Rate 2 Fraction of Inspir ed Oxygen Hydration adequate: Yes Nausea and vomiting: No Pain level: 1 Mental status: Baseline
== END 2020-02-19 13:50 | disposition home or self-care (01) ==
PROVIDERS: Anesthesiology; PCP Nurse Practitioner Family; Visit Provider Surgery
PROC: 0DJ08ZZ Inspection of Upper Intestinal Tract, Via Natural or Artificial Opening Endoscopic (ICD-10-PCS; CPT 43235; principal; 2020-02-19 10:45)
DX: K21.9 Gastro-esophageal reflux disease without esophagitis (principal); K44.9 Diaphragmatic hernia without obstruction or gangrene; J45.909 Unspecified asthma, uncomplicated; B19.20 Unspecified viral hepatitis C without hepatic coma; E66.01 Morbid (severe) obesity due to excess calories; Z68.33 Body mass index [BMI] 33.0-33.9, adult; Z87.891 Personal history of nicotine dependence
CPT/HCPCS: 12345; 43239; 84703; J2704; J7030

== ENCOUNTER 2020-05-31 16:47 | Emergency (ER) | payer MEDICAID, SELFPAY ==
[2020-05-31 16:49] VITALS: BP 120/80; PULSE 85; RESP 18; TEMP 36.1; O2SAT 98; BMI 34.9
--- NOTE | 2020-05-31 17:42 | ED_ITS ---
HPI - GI Bleed General: Chief complaint: General Medical Stated complaint: Blood in stool Time Seen by Provider: 05/31/20 17:41 Source: patient Mode of arrival: ambulatory Limitations: no limitations History of Present Illness: HPI Narrative: Patient is a 25-year-old female who presents to ED today with a complaint of rectal bleeding. Patient tells me she has had 3 episodes today with bright red blood on the toilet paper when she wiped. She quantifies bleeding is approximately 4 tablespoons per episode. She tells me her rectum feels bloated . She is also complaining of diffuse abdominal bloating. She is having nausea without vomiting. She denies constipation or episodes of diarrhea. She tells me she has had hemorrhoids previously that has led to scant rectal bleeding but nothing like today. She has not been running fevers. States she just finished with her menstrual cycle. She is not complaining of urinary symptoms. MD complaint: blood on toilet paper Onset (ago): hour(s) Severity: moderate Relieving factors: none Exacerbating factors: bowel movement Associated symptoms: Reports abdominal pain ( bloating ) and nausea; Denies chills, fever(s), headache(s), malaise, rash, syncope or vomiting Treatments Prior to Arrival: none Review of Systems Const: Denies: fever(s), chills, body aches, change in appetite, change in weight, fatigue or malaise Eyes: Denies: change in vision or blurry vision Card: Denies: chest pain, palpitations, irregular heart rhythm, edema, swelling of feet/ankles, lightheadedness, syncope, pre-syncope, dyspnea on exertion or orthopnea Resp: Denies: dyspnea, productive cough or chest congestion GI: Reports: abdominal pain ( bloating ), nausea, bloating and hematochezia; Denies: vomiting, hematemesis, coffee ground emesis, dysphagia, heartburn, diarrhea, constipation, GI cramping, change in bowel habits, pain on defecation, rectal pain, rectal itching, melena, mucus in stool or white/light colored stool : Denies: flank pain, difficulty voiding, dysuria, urinary frequency, urinary urgency or urinary hesitancy Musc: Denies: neck pain, back pain, extremity pain, extremity swelling, joint pain or joint swelling Skin/Breast: Denies: rash Neuro: Denies: headache(s), numbness in extremities, weakness in extremities, sensory changes, lack of coordination, difficulty walking, frequent falls, dizziness, vertigo or confusion PFSH ED PFSH: Medical History (Updated 05/31/20 @ 19:49 by ANTWON Weaver) Asthma Medical management and to be followed up on by PCP service as an outpatient Breast feeding status of mother Hepatitis C She completed 3 months of Epclusa in 2019 Surgical History History of laparoscopic cholecystectomy (~08/2019) Family History Other Diabetes Denies family history of Anesthesia complication Bleeding disorder Social History Smoking and tobacco status: former smoker Alcohol intake: current Adopted: No Lives independently: Yes Marital status: Single History of recent travel: No Current gender identity: Female Female Reproductive History: Date of last menstrual period: 05/24/20 Physical Exam Const: COMMON NORMALS: no acute distress, patient oriented x3, no limitations and alert GENERAL APPEARANCE: cooperative NUTRITIONAL APPEARANCE: obese ORIENTATION/CONSCIOUSNESS: Yes awake, Yes oriented to person, Yes oriented to place and Yes oriented to time HENMT: COMMON NORMALS: normocephalic and atraumatic HEAD & SCALP: normocephalic and atraumatic Resp: COMMON NORMALS: normal respiratory effort and clear to auscultation bilaterally AUSCULTATION: clear to auscultation bilaterally Cardio: COMMON NORMALS: regular rate and regular rhythm RATE: regular rate RHYTHM: regular rhythm GI: COMMON NORMALS: Normal to inspection, nondistended, normoactive bowel sounds present, Soft to palpation, No hepatosplenomegaly present and no masses PALPATION: Yes Soft to palpation, Yes Tenderness to palpation present (GI) (diffusely ) and Yes No hepatosplenomegaly present RECTAL EXAM: visual inspection normal, normal sphincter tone, heme positive stool and No External hemorrhoid(s) present : COMMON NORMALS: Yes no CVA tenderness BLADDER/KIDNEY EXAM: Yes no CVA tenderness Back/Pelvis: COMMON NORMALS: no CVA tenderness Extremity: GENERAL: Yes normal exam except as noted Neuro: STEVE COMA SCALE: document GCS findings Steve coma scale eye opening: Spontaneous Steve coma scale verbal response: Orientated [place] coma scale motor response: Obey commands [place] coma scale total score: 15 COMMON NORMALS: patient oriented x3 SENSORIUM/ORIENTATION: Yes alert, Yes oriented to person, Yes oriented to place and Yes oriented to time Skin: COMMON NORMALS: no rashes or lesions noted GENERAL SKIN EXAM: no rashes or lesions noted Course Vital Signs: Vital signs: Vital Signs Temperature 97.0 F L 05/31/20 16:49 Pulse Rate 88 05/31/20 19:30 Respiratory Rate 18 05/31/20 19:30 Blood Pressure 118/68 05/31/20 19:30 Pulse Oximetry 98 05/31/20 19:30 MDM - GI Bleed MDM Narrative: Medical decision making narrative: Patient's history is suspicious for internal hemorrhoids. CT scan likely confirming this. Patient's vitals and lab work here are all non-concerning. Her H/H is 11.8/38.4. Her heart rate was positive on orthostatics but blood pressure was normal. At this time we will refer patient to general surgery for further evaluation in case bleeding persists. Strict return to ED precautions given. Will place patient on hydrocortisone suppositories over the next few days and recommend stool softener/increasing fiber intake. Lab Data: Labs: Lab Results 05/31/20 05/31/20 05/31/20 Range/Units 17:20 18:03 18:03 WBC 7.0 (4.0-10.0) 10^3/ uL RBC 4.35 (4.1-5.3) 10^6/u L Hgb 11.8 (11.5-15.3) g/dL Hct 38.4 (37.0-47.0) % MCV 88.3 (81-99) fL MCH 27.1 L (28.0-34.0) pg MCHC 30.7 (30.0-36.0) g/dL RDW 13.3 (12.1-15.1) % Plt Count 228 (130-400) 10^3/c mm MPV 11.6 H (7.4-10.4) fL Neut % (Auto) 51.6 % Lymph % (Auto) 30.9 % [place] % (Auto) 7.0 % Eos % (Auto) 9.3 % Baso % (Auto) 0.9 % Neut # (Auto) 3.62 (1.8-7.7) 10^3/u L Lymph # (Auto) 2.2 (0.8-4.8) 10^3/u L [place] # (Auto) 0.5 (0.2-0.9) 10^3/u L Eos # (Auto) 0.7 (0.0-0.8) 10^3/u L Baso # (Auto) 0.1 (0.0-0.1) 10^3/u L Nucleated RBC % (a uto) 0 % Nucleated RBCs # 0.0 /100WBC Sodium 138 (136-145) mmol/L Potassium 4.0 (3.5-5.1) mmol/L Chloride 102 (98-107) mmol/L Carbon Dioxide 26 (22-29) mmol/L Anion Gap 14.0 (5-19) BUN 7 (6-20) mg/dL Creatinine 0.7 (0.5-0.9) mg/dL GFR Calculation 102.0 (90-130) mL/min Glucose 86 (65-115) mg/dL Calculated Osmolal ity 283 L (285-295) mOsm/k g Calcium 8.7 (8.5-10.5) mg/dL Total Bilirubin 0.2 (0.15-1.2) mg/dL AST 18 (0-32) U/L ALT 17 (0-33) U/L Alkaline Phosphata se 76 (35-105) IU/L Total Protein 7.4 (6.6-8.7) g/dL Albumin 4.4 (3.5-5.2) g/dL Globulin 3.0 (1.3-4.6) g/dL Lipase 42 (13-60) U/L HCG, Qual (Negative) Urine Color Yellow (Yellow) Urine Appearance Clear (CLEAR) Urine pH 7 (5-7) Ur Specific Gravit y 1.005 (1.005-1.030) Urine Protein Neg (Negative) Urine Glucose (UA) Norm (Normal) Urine Ketones Negative (Negative) Urine Blood Neg (Negative) Urine Nitrate Negative (Negative) Urine Bilirubin Neg (Negative) Urine Urobilinogen Norm (Negative) mg/dL Ur Leukocyte Hen[place] ase Negative (Negative) 05/31/20 Range/Units 18:03 WBC (4.0-10.0) 10^3/ uL RBC (4.1-5.3) 10^6/u L Hgb (11.5-15.3) g/dL Hct (37.0-47.0) % MCV (81-99) fL MCH (28.0-34.0) pg MCHC (30.0-36.0) g/dL RDW (12.1-15.1) % Plt Count (130-400) 10^3/c mm MPV (7.4-10.4) fL Neut % (Auto) % Lymph % (Auto) % [place] % (Auto) % Eos % (Auto) % Baso % (Auto) % Neut # (Auto) (1.8-7.7) 10^3/u L Lymph # (Auto) (0.8-4.8) 10^3/u L [place] # (Auto) (0.2-0.9) 10^3/u L Eos # (Auto) (0.0-0.8) 10^3/u L Baso # (Auto) (0.0-0.1) 10^3/u L Nucleated RBC % (a uto) % Nucleated RBCs # /100WBC Sodium (136-145) mmol/L Potassium (3.5-5.1) mmol/L Chloride (98-107) mmol/L Carbon Dioxide (22-29) mmol/L Anion Gap (5-19) BUN (6-20) mg/dL Creatinine (0.5-0.9) mg/dL GFR Calculation (90-130) mL/min Glucose (65-115) mg/dL Calculated Osmolal ity (285-295) mOsm/k g Calcium (8.5-10.5) mg/dL Total Bilirubin (0.15-1.2) mg/dL AST (0-32) U/L ALT (0-33) U/L Alkaline Phosphata se (35-105) IU/L Total Protein (6.6-8.7) g/dL Albumin (3.5-5.2) g/dL Globulin (1.3-4.6) g/dL Lipase (13-60) U/L HCG, Qual Negative (Negative) Urine Color (Yellow) Urine Appearance (CLEAR) Urine pH (5-7) Ur Specific Gravit y (1.005-1.030) Urine Protein (Negative) Urine Glucose (UA) (Normal) Urine Ketones (Negative) Urine Blood (Negative) Urine Nitrate (Negative) Urine Bilirubin (Negative) Urine Urobilinogen (Negative) mg/dL Ur Leukocyte Henna ase (Negative) Imaging Data^: CT Abd/Pel: Radiologist's impression: [address] [address] [address] Scan Report Signed Patient: Roselia Barrow #: [id number] : 1995Acct#:[id number] Age/Sex: 25 / FADM Date: 05/31/20 Loc: ERRoom/Bed: Attending Dr: Ordering Provider/Ordering MD: Edwina Luu Date of Service: 05/31/20 Procedure(s): CT abdomen pelvis w con* [id number] Accession Number(s): [id number] Report Number: [id number] PROCEDURE INFORMATION: Exam: CT Abdomen And Pelvis With Contrast Exam date and time: 05/31/2020 6:50 PM Age: 25 years old Clinical indication: Other: Rectal bleeding; Prior surgery; Surgery date: 6+ months; Surgery type: Gb; Patient HX: C/O bright blood in stool; Additional info: Abdominal pain/bloating; Rectal bleeding TECHNIQUE: Imaging protocol: Computed tomography of the abdomen and pelvis with contrast. Radiation optimization: All CT scans at this facility use at least one of these dose optimization techniques: automated exposure control; mA and/or kV adjustment per patient size (includes targeted exams where dose is matched to clinical indication); or iterative reconstruction. Contrast material: OMNI 300; Contrast volume: 95 ml; Contrast route: INTRAVENOUS (IV); COMPARISON: CT abdomen pelvis w con* [id number] 09/08/2019 1:55 PM RADIATION DOSE METRICS: Total DLP (mGy-cm): 1501.2 FINDINGS: Lungs: The visualized lung bases are clear. Liver: Normal size and density. No focal mass. Gallbladder and bile ducts: The gallbladder has been removed. No evidence of biliary dilatation. Pancreas: No evidence of mass. No ductal dilation. Spleen: No splenomegaly or mass. Adrenal glands: Normal. Kidneys and ureters: No stones or hydronephrosis. No evidence of focal mass. Stomach and bowel: No focal bowel wall thickening or mass. No significant diverticula. No signs of obstruction. Small to moderate stool burden. Appendix: No evidence of appendicitis. Intraperitoneal space: No free air. No free fluid or evidence of abscess. Vasculature: No concerning abnormalities. Lymph nodes: No lymphadenopathy. Urinary bladder: Normal CT appearance. Reproductive: Normal CT appearance for age. Bones/joints: No acute abnormality. Soft tissues: Within normal limits. Other findings: There are prominent perirectal/deep pelvic vessels. CT/CT abdomen pelvis w con* [id number] IMPRESSION: 1. Prominent perirectal/deep pelvic veins likely reflecting hemorrhoids 2. The remaining venous system is normal in appearance. Radiation Dose CTDIVOL = (mGy): DLP = 1501.2 (mGy-cm) Dictated By:Pierre Ortiz Signed By:Pierre OrtizSikristopher Date/Time:05/31/201939 DD/ 37 Discharge Plan Discharge Patient Disposition: Home Clinical Impression: Bleeding internal hemorrhoids Condition: Stable Prescriptions: New hydrocortisone acetate 25 mg suppository 25 mg ID BID 6 Days Qty: 12 RF: 0 Dulcolax Stool Softener (dss) 100 mg capsule 100 mg PO BID Qty: 30 RF: 0 No Action albuterol sulfate 90 mcg/actuation aero powdr breath act w/sensor 1 inh INHALATION Q6H PRN (Reason: Shortness Of Breath) RF: 0 loratadine 10 mg tablet 10 mg PO DAILY PRN (Reason: Allergy Symptoms) RF: 0 pantoprazole 40 mg tablet,delayed release (DR/EC) See Rx Instructions .ROUTE .COMPLEX Qty: 30 RF: 0 Advair Diskus See Rx Instructions .ROUTE .COMPLEX RF: 0 Excedrin Extra Strength 250-250-65 mg Tablet 1 tab PO Q6H PRN (Reason: PAIN/HEADACHE) RF: 0 escitalopram oxalate 10 mg tablet 5 mg PO DAILY RF: 0 Discharge Orders: Discharge ED (Routine); Ordered 05/31/20 Ordered By: Edwina Luu Referrals: Jaye Baires, DIRECTOR [employer] [Primary Care Provider] - Patient Instructions: Hemorrhoids (ED), Rectal Bleeding (ED), Opioid Safety Activity Restrictions/Additional Instructions: [facility] is committed to fighting the nationwide opiate epidemic. We are providing ALL patients with information regarding opiate safety. If you received opiate pain medication during your stay or if you received a prescription for opiate pain medication-please review this handout. If not, you may disregard. Thank you. Case management should contact you in the next 1 to 2 days to set you up with an appointment for general surgery for evaluation of your hemorrhoids. You need to return to the emergency department for worsening pain, severe rectal bleeding, lightheadedness, passing out episodes, severe abdominal pain, fevers, or any other concerns you may have. Coding Level of Care Code ED Organic Search Lead for Tiburcio Fwd Exam Comprehensive
--- NOTE | 2020-05-31 17:51 | CTR_ITS ---
PROCEDURE INFORMATION: Exam: CT Abdomen And Pelvis With Contrast Exam date and time: 05/31/2020 6:50 PM Age: 25 years old Clinical indication: Other: Rectal bleeding; Prior surgery; Surgery date: 6+ months; Surgery type: Gb; Patient HX: C/O bright blood in stool; Additional info: Abdominal pain/bloating; Rectal bleeding TECHNIQUE: Imaging protocol: Computed tomography of the abdomen and pelvis with contrast. Radiation optimization: All CT scans at this facility use at least one of these dose optimization techniques: automated exposure control; mA and/or kV adjustment per patient size (includes targeted exams where dose is matched to clinical indication); or iterative reconstruction. Contrast material: OMNI 300; Contrast volume: 95 ml; Contrast route: INTRAVENOUS (IV); COMPARISON: CT abdomen pelvis w con* [id number] 09/08/2019 1:55 PM RADIATION DOSE METRICS: Total DLP (mGy-cm): 1501.2 FINDINGS: Lungs: The visualized lung bases are clear. Liver: Normal size and density. No focal mass. Gallbladder and bile ducts: The gallbladder has been removed. No evidence of biliary dilatation. Pancreas: No evidence of mass. No ductal dilation. Spleen: No splenomegaly or mass. Adrenal glands: Normal. Kidneys and ureters: No stones or hydronephrosis. No evidence of focal mass. Stomach and bowel: No focal bowel wall thickening or mass. No significant diverticula. No signs of obstruction. Small to moderate stool burden. Appendix: No evidence of appendicitis. Intraperitoneal space: No free air. No free fluid or evidence of abscess. Vasculature: No concerning abnormalities. Lymph nodes: No lymphadenopathy. Urinary bladder: Normal CT appearance. Reproductive: Normal CT appearance for age. Bones/joints: No acute abnormality. Soft tissues: Within normal limits. Other findings: There are prominent perirectal/deep pelvic vessels. CT/CT abdomen pelvis w con* [id number] IMPRESSION: 1. Prominent perirectal/deep pelvic veins likely reflecting hemorrhoids 2. The remaining venous system is normal in appearance. Radiation Dose CTDIVOL = (mGy): DLP = 1501.2 (mGy-cm)
[2020-05-31 18:10] LABS: Add Urine Microscopic? NO
[2020-05-31 18:12] LABS: Basophils # 0.1 10^3/uL (0.0-0.1); Basophils % 0.9 %; Eosinophils # 0.7 10^3/uL (0.0-0.8); Eosinophils % 9.3 %; Hematocrit 38.4 % (37.0-47.0); Hemoglobin 11.8 g/dL (11.5-15.3); Lymphocytes # 2.2 10^3/uL (0.8-4.8); Lymphocytes % 30.9 %; Mean Corpuscular HGB Conc 30.7 g/dL (30.0-36.0); Mean Corpuscular Hemoglobin 27.1 pg (28.0-34.0); Mean Corpuscular Volume 88.3 fL (81-99); Mean Platelet Volume 11.6 fL (7.4-10.4); Monocytes # 0.5 10^3/uL (0.2-0.9); Neutrophils # 3.62 10^3/uL (1.8-7.7); Neutrophils % 51.6 %; Nucleated Red Blood Cells % 0 %; Platelet Count 228 10^3/cmm (130-400); Red Blood Count 4.35 10^6/uL (4.1-5.3); Red Cell Distribution Width 13.3 % (12.1-15.1)
[2020-05-31 18:31] LABS: Alanine Aminotransferase 17 U/L (0-33); Albumin Level 4.4 g/dL (3.5-5.2); Alkaline Phosphatase 76 IU/L (35-105); Aspartate Amino Transferase 18 U/L (0-32); Blood Urea Nitrogen 7 mg/dL (6-20); Calcium 8.7 mg/dL (8.5-10.5); Carbon Dioxide 26 mmol/L (22-29); Chloride 102 mmol/L (98-107); Glucose 86 mg/dL (65-115); Lipase 42 U/L (13-60); Osmolality Calculated 283 mOsm/kg (285-295); Sodium 138 mmol/L (136-145); Total Bilirubin 0.2 mg/dL (0.15-1.2); Total Protein 7.4 g/dL (6.6-8.7)
[2020-05-31 18:32] LABS: HCG, Serum Qual Negative (Negative)
[2020-05-31 18:32] LABS: Bilirubin Urine Neg (Negative); Blood Urine Neg (Negative); Glucose Urine UA Norm (Normal); Ketones Urine Negative (Negative); Leukocyte Esterase Urine Negative (Negative); Nitrate Urine Negative (Negative); Protein Urine Neg (Negative); Specific Gravity, Urine 1.005 (1.005-1.030); Urine Appearance Clear (CLEAR); Urine Color Yellow (Yellow); Urobilinogen Urine Norm (Negative); pH Urine 7 (5-7)
[2020-05-31 19:11] VITALS: BP 112/77; BP 115/78; BP 125/80; PULSE 105; PULSE 82
[2020-05-31 19:14] VITALS: BP 115/78; PULSE 95; RESP 18; O2SAT 99
[2020-05-31] MEDS: iohexol 300 mg/mL 100 mL Btl IV (19:20)
[2020-05-31 19:27] VITALS: RESP 18; O2SAT 98
[2020-05-31] MEDS: morphine 4 mg/mL SDV 1 mL IVP (19:27)
[2020-05-31] MEDS: ondansetron 2 mg/ML SDV 2 mL 4 MG IVP (19:27)
[2020-05-31 19:30] VITALS: BP 118/68; PULSE 88; RESP 18; O2SAT 98
[2020-05-31 19:58] VITALS: BP 118/68; PULSE 84; RESP 18; O2SAT 98
--- NOTE | 2020-06-01 10:43 | DCPLANNER ---
event manager had message to schedule a follow up appointment for patient with general surgery. event manager emailed patients information to both Myesha and Ana at [facility] General Surgery. Patients information will be printed and reviewed. Clinic will call patient with appointment information.
--- NOTE | 2020-06-03 13:33 | DCPLANNER ---
Patient has a follow up appointment scheduled for , June 11, 2020 at 11:[address] Hilliard at [facility] General Surgery, clinic will call patient with appointment information.
--- NOTE | 2020-06-24 15:39 | DCPLANNER ---
Patient had a follow up appointment scheduled for 06.11.[address] Moreno with general surgery - patient did attend appointment.
== END 2020-05-31 19:58 | disposition home or self-care (01) ==
PROVIDERS: Emergency Provider Physician Assistant; PCP Nurse Practitioner Family
DX: K64.8 Other hemorrhoids (principal); Z86.19 Personal history of other infectious and parasitic diseases; Z87.891 Personal history of nicotine dependence
CPT/HCPCS: 74177; 80053; 81003; 83690; 84703; 85025; 96374; 96375; 99283; J2270; J2405; Q9967

== ENCOUNTER 2020-06-09 11:28 | Emergency (ER) | payer MEDICAID, SELFPAY ==
[2020-06-09 11:59] VITALS: BP 132/85; PULSE 93; RESP 16; TEMP 36.7; O2SAT 97; BMI 36.5
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
[2020-06-09 12:13] VITALS: BP 122/77; PULSE 94; RESP 16; O2SAT 96
[2020-06-09] MEDS: orphenadrine 30 mg/mL Inj 2 mL 60 MG IM (12:45)
[2020-06-09] MEDS: ibuprofen 600 mg Tablet PO (12:53)
== END 2020-06-09 13:11 | disposition home or self-care (01) ==
PROVIDERS: Emergency Provider Nurse Practitioner Family; PCP Nurse Practitioner Family
DX: S16.1XXA Strain of muscle, fascia and tendon at neck level, initial encounter (principal); S40.011A Contusion of right shoulder, initial encounter; W22.11XA Striking against or struck by driver side automobile airbag, initial encounter; V89.2XXA Person injured in unspecified motor-vehicle accident, traffic, initial encounter; Z86.19 Personal history of other infectious and parasitic diseases; Z87.891 Personal history of nicotine dependence
CPT/HCPCS: 72125; 73030; 96372; 99283; J2360

== ENCOUNTER 2020-06-10 15:13 | Outpatient (CLI) | payer MEDICAID, SELFPAY ==
--- NOTE | 2020-06-10 15:20 | CT_ITS ---
WS: [id number] CT HEAD NONCONTRAST HISTORY: POST-TRAUMATIC HEADACHE TECHNIQUE: Contiguous axial imaging performed through the brain in 2.5 mm imaging. Bone and soft tiss ue windows. All CT scans at [facility] use at least one of these dose optimization techniq ues: automated exposure control; mA and/or kV adjustment per patient size (includes targeted exams wh ere dose is matched to clinical indication); or iterative reconstruction. DLP: 992.04 mGycm COMPARISON: None available. No acute intracranial hemorrhage, midline shift or mass effect. No atrophy or prior infarcts or herniation. Ventricles: Normal size with no hydrocephalus. Paranasal sinuses: As visualized are clear. Mastoid air cells: Well pneumatized. Calvarium and scalp: Skull is intact with no soft tissue edema or swelling. CT/CT head wo con* [id number] IMPRESSION: Negative head CT.
== END 2020-06-10 15:14 | disposition home or self-care (01) ==
LOC: RADWPI 15:18
PROVIDERS: PCP Nurse Practitioner Family; Visit Provider Nurse Practitioner Family
DX: G44.319 Acute post-traumatic headache, not intractable (principal)
CPT/HCPCS: 70450

== ENCOUNTER → 2020-06-26 09:59 | Outpatient (BNVA) | payer MEDICAID, SELFPAY | PROVIDERS: PCP Nurse Practitioner Family; Visit Provider Surgery | DX: K62.5 Hemorrhage of anus and rectum (principal) | CPT/HCPCS: 87635 ==

== ENCOUNTER 2020-07-01 07:03 | Day surgery (SDC) | payer MEDICAID, SELFPAY ==
[2020-06-30 11:36] VITALS: BMI 36.5
--- NOTE | 2020-07-01 07:15 | ANES.PREANE2 ---
Pre-Anesthetic Assessment Pre-Anesthetic Assessment: Height/Weight: Height 1.73 m Weight 108.862 kg Preop Diagnosis: Acid Reflux Proposed Procedure: Operation Date: 07/01/20 08:45 Proposed Procedures p Colonoscopy 36607 K62.5(Not Applicable) - Juan Hilliard MD Familial anesthetic complications: none Was Beta Adam taken within 24 hours: N/A Was Clonidine taken within 24 hours: N/A Last intake: > 8 hrs Social: Social History: Tobacco and No alcohol Exam: Pre-Anes Outpt Exam: alert, oriented x 3, clear to auscultation bilaterally and regular rate & rhythm Airway: Cervical ROM: WNL MP: 2 Dentition: Other (poor dentition) Pulmonary: Pulmonary: Asthma Hepatic: Hepatic: Hepatitis (C) GI: GI: GERD Anesthetic Plan: ASA status: 2 Anesthesia: MAC Risk of > 500 ml blood loss (7ml/kg in children): No PFSH Anesthesia PFSH: Medical History (Updated 06/17/20 @ 00:00 by ) Asthma Medical management and to be followed up on by PCP service as an outpatient Breast feeding status of mother Hepatitis C She completed 3 months of Epclusa in 2019 Surgical History History of laparoscopic cholecystectomy (~08/2019) Family History Other Diabetes Denies family history of Anesthesia complication Bleeding disorder Social History Smoking and tobacco status: former smoker Alcohol intake: current Adopted: No Lives independently: Yes Marital status: Single History of recent travel: No Current gender identity: Female Female Reproductive History: Date of last menstrual period: 05/24/20 Data Anesthesia Cardiac Studies: No Data to Display
[2020-07-01 07:45] VITALS: BP 126/80; PULSE 107; RESP 18; TEMP 36.7; O2SAT 95
[2020-07-01] MEDS: sodium chloride 0.9% 1,000 ML 30 ML IV (08:05)
--- NOTE | 2020-07-01 09:18 | W.PM.OPSUD ---
Surgery/Procedure H&P Update DATE OF PROCEDURE: July 01, 2020 DATE H&P PERFORMED: 06/11/20 H&P UPDATE INFORMATION: I have reviewed H&P completed within last 30 days, I have examined patient prior to procedure and No changes to prior documentation PREOP DIAGNOSIS: Bleeding per rectum PRIMARY INDICATION FOR PROCEDURE: Bleeding per rectum PLANNED PROCEDURE: Operation Date: 07/01/20 08:45 Proposed Procedures p Colonoscopy 74883 K62.5(Not Applicable) - Juan Hilliard MD
[2020-07-01 09:57] LABS: OR HCG Qualitative Urine Negative (Negative)
[2020-07-01 10:31] VITALS: BP 112/70; PULSE 82; RESP 16; TEMP 36.1; O2SAT 96
--- NOTE | 2020-07-01 10:32 | ANE.PACU2 ---
Inpatient post-anesthesia follow up: Airway intact: Yes Vital signs: Temperature 98.0 F Pulse Rate 107 Respiratory Rate 18 Blood Pressure 126/80 Pulse Oximetry 95 Oxygen Delivery Me thod Room Air Oxygen Flow Rate Fraction of Inspir ed Oxygen Hydration adequate: Yes Nausea and vomiting: No Pain level: 1 Mental status: Baseline
[2020-07-01 10:47] VITALS: BP 108/66; PULSE 93; RESP 16; O2SAT 95
== END 2020-07-01 10:52 | disposition home or self-care (01) ==
PROVIDERS: PCP Nurse Practitioner Family; Visit Provider Surgery
PROC: 0DJD8ZZ Inspection of Lower Intestinal Tract, Via Natural or Artificial Opening Endoscopic (ICD-10-PCS; CPT 45378; principal; 2020-07-01 08:45)
DX: K62.5 Hemorrhage of anus and rectum (principal); Z86.19 Personal history of other infectious and parasitic diseases; Z87.891 Personal history of nicotine dependence
CPT/HCPCS: 45378; 84703; 96360; 96361; J7030

== ENCOUNTER 2020-08-10 23:06 | Emergency (ER) | payer MEDICAID, SELFPAY ==
[2020-08-10 23:36] VITALS: BP 116/72; PULSE 89; RESP 16; TEMP 36.8; O2SAT 97; BMI 37.5
[2020-08-11 01:44] LABS: Add Urine Microscopic? NO; Charge for UA Resulting for Rev
[2020-08-11 01:46] LABS: Bilirubin Urine Neg (Negative); Blood Urine Neg (Negative); Glucose Urine UA Norm (Normal); Ketones Urine Negative (Negative); Leukocyte Esterase Urine Negative (Negative); Nitrate Urine Negative (Negative); Protein Urine Neg (Negative); Urine Appearance Clear (CLEAR); Urine Color Yellow (Yellow); Urobilinogen Urine Norm (Negative); pH Urine 7 (5-7)
[2020-08-11 01:54] VITALS: BP 136/77; PULSE 95; RESP 18; O2SAT 95
[2020-08-11 01:54] LABS: HCG Qualitative Urine. Negative (Negative)
[2020-08-11 01:55] VITALS: PULSE 88
[2020-08-11] MEDS: ketorolac 60 mg/2 mL INJ IM (02:13)
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
[2020-08-11] MEDS: cyclobenzaprine 10 mg Tablet PO (02:14)
[2020-08-11 02:37] VITALS: BP 129/88; PULSE 93; RESP 18; O2SAT 98
== END 2020-08-11 02:40 | disposition home or self-care (01) ==
PROVIDERS: Emergency Medicine; Emergency Provider Registered Nurse; PCP Nurse Practitioner Family
DX: M79.601 Pain in right arm (principal); Z86.19 Personal history of other infectious and parasitic diseases; Z87.891 Personal history of nicotine dependence
CPT/HCPCS: 81003; 81025; 96372; 99283; J1885

== ENCOUNTER → 2020-08-11 11:00 | Outpatient (BNVA) | payer MEDICAID, SELFPAY | PROVIDERS: PCP Nurse Practitioner Family; Visit Provider Specialist | DX: G25.0 Essential tremor (principal); R20.0 Anesthesia of skin; R20.2 Paresthesia of skin; M54.2 Cervicalgia; Z87.891 Personal history of nicotine dependence | CPT/HCPCS: 99215 ==

== ENCOUNTER → 2020-08-25 08:40 | Outpatient (BNVA) | payer MEDICAID, SELFPAY | PROVIDERS: PCP Nurse Practitioner Family; Referring Provider Nurse Practitioner Family; Visit Provider Anesthesiology Pain Medicine | DX: M54.9 Dorsalgia, unspecified (principal); M54.2 Cervicalgia; F17.210 Nicotine dependence, cigarettes, uncomplicated; Z79.899 Other long term (current) drug therapy | CPT/HCPCS: 99204 ==

== ENCOUNTER → 2020-08-26 08:54 | Outpatient (BNVA) | payer MEDICAID, SELFPAY | PROVIDERS: PCP Nurse Practitioner Family; Referring Provider Specialist; Visit Provider Specialist | DX: G56.03 Carpal tunnel syndrome, bilateral upper limbs (principal); R20.0 Anesthesia of skin; R20.2 Paresthesia of skin; F17.210 Nicotine dependence, cigarettes, uncomplicated | CPT/HCPCS: 95910 ==

== ENCOUNTER 2020-09-02 15:13 | Emergency (ER) | payer MEDICAID, SELFPAY ==
[2020-09-02 15:20] VITALS: BP 123/76; PULSE 105; RESP 18; TEMP 36.8; O2SAT 96; BMI 38.0
--- NOTE | 2020-09-02 15:55 | XRR_ITS ---
PROCEDURE INFORMATION: Exam: XR Chest Exam date and time: 09/02/2020 3:58 PM Age: 25 years old Clinical indication: Cough; Additional info: Cough, worsening TECHNIQUE: Imaging protocol: XR of the chest. Views: 1 view. COMPARISON: CR XR chest 1V portable [id number] 01/13/2020 10:45 PM FINDINGS: Lungs: Unremarkable. No consolidation. Pleural spaces: Unremarkable. No pleural effusion. No pneumothorax. Heart/Mediastinum: Unremarkable. No cardiomegaly. Bones/joints: Unremarkable. XR/XR chest 1V portable [id number] IMPRESSION: No acute findings.
--- NOTE | 2020-09-02 16:01 | W.ED.GENADLT ---
HPI - General Adult General: Chief complaint: Shortness of Breath/Dyspnea Stated complaint: HAS PNEUMONIA GETTING WORSE Time Seen by Provider: 09/02/20 15:55 History of Present Illness: HPI narrative: Patient complains of cough make it tight in her chest hurts when she takes a deep breath. Being treated for pneumonia through the [facility] walk-in clinic. Patient has history of asthma and was a smoker. Said her cough is getting worse. complaint: Cough Onset (ago): day(s) Associated symptoms: Reports cough and dyspnea; Deny chest pain, headache(s), nausea, rash or vomiting Treatments prior to arrival: other (Breathing treatments at home) Review of Systems Const: Denies: fever(s), chills or body aches Eyes: Denies: change in vision or blurry vision ENMT: Denies: throat pain or nasal congestion Card: Denies: chest pain or dyspnea on exertion Resp: Reports: dyspnea, non-productive cough and wheezing; Denies: productive cough GI: Denies: abdominal pain, nausea or vomiting Musc: Denies: extremity pain Skin/Breast: Denies: rash Neuro: Denies: headache(s) Psych: Denies: anxiety or depression Evens/Lymph: Denies: easy bruising PFSH ED PFSH: Medical History Asthma Medical management and to be followed up on by PCP service as an outpatient Bleeding per rectum Breast feeding status of mother Hepatitis C She completed 3 months of Epclusa in 2019 Surgical History History of laparoscopic cholecystectomy (~08/2019) Family History Other Diabetes Denies family history of Anesthesia complication Bleeding disorder Social History Smoking and tobacco status: current every day smoker cigarettes Alcohol intake: current Alcohol intake frequency: holidays/special occasions only Adopted: No Lives independently: Yes Marital status: Single History of recent travel: No Current gender identity: Female Female Reproductive History: Date of last menstrual period: 08/13/20 Physical Exam Const: COMMON NORMALS: no acute distress, average body habitus and patient oriented x3 HENMT: COMMON NORMALS: normocephalic HEAD & SCALP: normal to inspection and normocephalic FACE & SINUS: normal facial exam Eye: COMMON NORMALS: conjunctivae normal GENERAL EYE: appearance normal, both eyes and all related structures CONJUNCTIVA: Yes conjunctivae normal Neck/C-Spine: COMMON NORMALS: no JVD Chest: COMMONS NORMALS: normal inspection of the chest Resp: COMMON NORMALS: normal respiratory effort AUSCULTATION: wheezes expiratory wheezes (Scattered) Cardio: COMMON NORMALS: no JVD, regular rate and regular rhythm RATE: regular rate RHYTHM: regular rhythm GI: COMMON NORMALS: Normal to inspection, nondistended, normoactive bowel sounds present Extremity: COMMON NORMALS: normal to inspection and full ROM Neuro: COMMON NORMALS: patient oriented x3 Course Vital Signs: Vital signs: Vital Signs Temperature 98.3 F 09/02/20 15:20 Pulse Rate 105 H 09/02/20 15:20 Respiratory Rate 18 09/02/20 15:20 Blood Pressure 123/76 09/02/20 15:20 Pulse Oximetry 96 09/02/20 15:20 Discharge Plan Discharge Prescriptions: No Action ascorbate calcium (vitamin C) 500 mg tablet 500 mg PO DAILY RF: 0 gabapentin 300 mg capsule 300 mg PO DAILY RF: 0 THC inhalation RF: 0 albuterol sulfate 90 mcg/actuation aero powdr breath act w/sensor 1 inh INHALATION Q6H PRN (Reason: Shortness Of Breath) RF: 0 loratadine 10 mg tablet 10 mg PO DAILY@0800 PRN (Reason: Allergy Symptoms) RF: 0 Advair Diskus See Rx Instructions .ROUTE .COMPLEX RF: 0 Excedrin Extra Strength 250-250-65 mg Tablet 1 tab PO Q6H PRN (Reason: PAIN/HEADACHE) RF: 0 escitalopram oxalate 10 mg tablet 5 mg PO DAILY@1100 RF: 0 multivitamin Tablet 1 tab PO DAILY@0800 RF: 0 pantoprazole 40 mg tablet,delayed release (DR/EC) 40 mg PO DAILY@0800 RF: 0 docusate sodium [Dulcolax Stool Softener (dss)] 100 mg capsule 100 mg PO BID@0800,2000 RF: 0 methocarbamol 750 mg tablet 750 mg PO Q6H Qty: 10 RF: 0 Coding Level of Care Code ED Coarse Wire Drawer for Chg Arianna
[2020-09-02] MEDS: ipratropium-albuterol 3 mL Neb INHALATION (16:54)
[2020-09-02 16:56] VITALS: PULSE 91; RESP 20; O2SAT 97
[2020-09-02 17:00] VITALS: PULSE 88
== END 2020-09-02 17:08 | disposition home or self-care (01) ==
PROVIDERS: Emergency Provider Nurse Practitioner Family; PCP Nurse Practitioner Family
DX: R05 Cough (principal); Z86.19 Personal history of other infectious and parasitic diseases; F17.210 Nicotine dependence, cigarettes, uncomplicated
CPT/HCPCS: 71045; 94640; 96374; 99283; J2930

== ENCOUNTER 2020-09-11 15:24 | Outpatient (CLI) | payer MEDICAID, SELFPAY ==
--- NOTE | 2020-09-11 16:00 | MR_ITS ---
WS: [id number] MRI CERVICAL SPINE NONCONTRAST HISTORY: M54.2 - Cervicalgia COMPARISON: CT 06/09/2020 Technique: Multiplanar, multisequence noncontrast imaging of the cervical spine. Mild straightening of the normal cervical lordosis. No marrow edema or fracture. Normal signal within the cord. Mild disc space narrowing and desiccation at C5-6. Craniocervical junction, C1 and C2 relationship, odontoid process and soft tissues are normal. C2-C3: Normal. C3-C4: Mild osteophytic ridging. No stenosis. C4-C5: Mild osteophytic ridging. No stenosis. C5-C6: Small central disc protrusion with moderate annular disc bulging and small osteophytes. Disc a buts the ventral cord with no displacement. There is also very mild narrowing of the RIGHT foramen. C6-C7: Mild osteophytic ridging. No significant stenosis. C7-T1: Normal. Paraspinal soft tissue are normal. MR/MR cervical spin wo con* [id number] IMPRESSION: 1. No cervical spine fracture or marrow edema. 2. Mild degenerative disc disease at C5-6. 3. Small central disc protrusion at C5-6 with abutment but no displacement of the cervical cord. Mild RIGHT foraminal narrowing at C5-6.
== END 2020-09-11 15:25 | disposition home or self-care (01) ==
LOC: RADSHAW 15:26
PROVIDERS: PCP Nurse Practitioner Family; Visit Provider Specialist
DX: R20.0 Anesthesia of skin (principal); R20.2 Paresthesia of skin; M50.322 Other cervical disc degeneration at C5-C6 level; M50.222 Other cervical disc displacement at C5-C6 level
CPT/HCPCS: 72141; 87635

== ENCOUNTER 2020-09-17 10:12 | Day surgery (SDC) | payer MEDICAID, SELFPAY ==
[2020-09-16 09:56] VITALS: BMI 36.0
[2020-09-17] VITALS (8 sets, daily range): BP systolic 91–122; BP diastolic 50–78; PULSE 78–97; RESP 14–20; TEMP 36.4–36.9; O2SAT 95–97
[2020-09-17 11:09] LABS: OR HCG Qualitative Urine Negative (Negative)
--- NOTE | 2020-09-17 11:57 | P.ANESASSM_ITS ---
Pre-Anesthetic Assessment Pre-Anesthetic Assessment: Height/Weight: Height 1.73 m Weight 107.501 kg Temp Pulse Resp BP Pulse Ox 98.4 F 87 18 104/72 96 09/17/20 10:37 09/17/20 10:37 09/17/20 10:37 09/17/20 10:37 09/17/20 10:37 Preop Diagnosis: Carpal tunnel syndrome Left Proposed Procedure: Operation Date: 09/17/20 12:00 Proposed Procedures p right Carpal Tunnel Release [id number] G56.03(Right) - Ganga Matthews MD Was Beta Adam taken within 24 hours: N/A Was Clonidine taken within 24 hours: N/A Last intake: Intake Last Liquid Date 09/16/20 Last Liquid Time 23:00 Last Solid Date 09/16/20 Last Solid Time 20:30 Social: Social History: Tobacco and No alcohol Exam: Pre-Anes Outpt Exam: alert, oriented x 3, clear to auscultation bilater ally and regular rate & rhythm Airway: Submandibular: WNL Cervical ROM: WNL MP: 2 Dentition: Full Pulmonary: Pulmonary: Asthma Hepatic: Comments: Hep C GI: GI: GERD Metabolic: Metabolic: Morbid obesity Anesthetic Plan: ASA status: 3 Anesthesia: MAC Risk of > 500 ml blood loss (7ml/kg in children): No PFSH Anesthesia PFSH: Medical History Asthma Medical management and to be followed up on by PCP service as an outpatient Bleeding per rectum Breast feeding status of mother Hepatitis C She completed 3 months of Epclusa in 2019 Surgical History History of laparoscopic cholecystectomy (~08/2019) Family History Other Diabetes Denies family history of Anesthesia complication Bleeding disorder Social History Smoking and tobacco status: current every day smoker cigarettes Alcohol intake: current Alcohol intake frequency: holidays/special occasions only Adopted: No Lives independently: Yes Marital status: Single History of recent travel: No Current gender identity: Female Female Reproductive History: Date of last menstrual period: 08/13/20 Data Anesthesia Other Labs: Laboratory Results - last 48 hr 09/17/20 11:07 Urine HCG, Qual Negative Cardiac Studies: No Data to Display
--- NOTE | 2020-09-17 12:40 | W.PM.OPSUD ---
Surgery/Procedure H&P Update DATE OF PROCEDURE: September 17, 2020 DATE H&P PERFORMED: 09/09/20 H&P UPDATE INFORMATION: I have reviewed H&P completed within last 30 days and No changes to prior documentation CHANGES TO PREVIOUS DOCUMENTATION: Patient has bilateral carpal tunnel syndrome and has elected to proceed with a right carpal tunnel release today PREOP DIAGNOSIS: Carpal tunnel syndrome right PLANNED PROCEDURE: Operation Date: 09/17/20 12:00 Proposed Procedures p right Carpal Tunnel Release [id number] G56.03(Right) - Ganga Matthews MD
--- NOTE | 2020-09-17 13:05 | P.OP_ITS ---
Operative Report Date of procedure: September 17, 2020 Pre-op Diagnosis: Carpal tunnel syndrome right Post-op diagnosis: same Post-op Findings: Same Procedure Done: Right carpal tunnel release Pathology: none sent Surgeon: Ganga Matthews Anesthesia: Nerve Block ([place] block) Estimated blood loss (mL): 2 Tourniquet time (min): 22 Findings: No masses or space-occupying lesions were seen within the carpal tunnel Disposition: PACU Procedure: Patient was taken to the operating room and anesthesia provided by the anesthesia service. She was prepped and draped with the arm exposed. A timeout was performed. A 3 cm long incision was made in line with the fourth ray from the distal edge of the carpal tunnel extending proximally. The subcutaneous fat and palmar fascia was divided with a scalpel blade. Under loupe magnification the ulnar neurovascular bundle was identified distally. A hemostat could be passed under the transverse carpal ligament allowing the distal 25% to be divided. A slotted guide was then passed beneath the transverse carpal ligament and the middle 50% divided. Blunt scissors were then passed over the guide freeing the proximal ligament. The tourniquet was deflated. Hemostasis provided with electrocautery. Wound edges were infiltrated with 10 cc of a half percent Marcaine solution. Skin edges were reapproximated with 3-0 Prolene. Sterile dressings were applied. The patient was taken to the recovery room in stable condition
--- NOTE | 2020-09-17 13:33 | ANE.PACU2 ---
Inpatient post-anesthesia follow up: Airway intact: Yes Vital signs: Temperature 97.9 F Pulse Rate 78 Respiratory Rate 14 Blood Pressure 111/60 Pulse Oximetry 97 Oxygen Delivery Me thod Nasal Cannula Oxygen Flow Rate 2 Fraction of Inspir ed Oxygen Hydration adequate: Yes Nausea and vomiting: No Pain level: 1 Mental status: Baseline
== END 2020-09-17 14:35 | disposition home or self-care (01) ==
PROVIDERS: Anesthesiology; PCP Nurse Practitioner Family; Visit Provider Orthopaedic Surgery
PROC: (CPT 64721; principal; 2020-09-17 11:50)
DX: G56.01 Carpal tunnel syndrome, right upper limb (principal); J45.909 Unspecified asthma, uncomplicated; Z86.19 Personal history of other infectious and parasitic diseases; F17.210 Nicotine dependence, cigarettes, uncomplicated
CPT/HCPCS: 64721; 84703; J0690; J2250; J2704; J3490; J3535

== ENCOUNTER → 2020-10-16 16:30 | Outpatient (BNVA) | payer MEDICAID, SELFPAY | PROVIDERS: PCP Nurse Practitioner Family; Visit Provider Orthopaedic Surgery | DX: Z01.812 Encounter for preprocedural laboratory examination (principal); Z20.822 Contact with and (suspected) exposure to COVID-19 | CPT/HCPCS: 87635 ==

== ENCOUNTER 2020-10-21 12:15 | Outpatient (CLI) | payer MEDICAID, SELFPAY | END 2020-10-21 12:16 | disposition home or self-care (01) | PROVIDERS: PCP Nurse Practitioner Family; Visit Provider Nurse Practitioner Family | DX: Z32.01 Encounter for pregnancy test, result positive (principal) | CPT/HCPCS: 84702 ==

== ENCOUNTER 2020-10-22 05:39 | Day surgery (SDC) | payer MEDICAID, SELFPAY ==
[2020-10-21 12:44] VITALS: BMI 35.6
[2020-10-22] VITALS (8 sets, daily range): BP systolic 102–154; BP diastolic 63–92; PULSE 73–88; RESP 12–18; TEMP 36.1–36.6; O2SAT 94–100
[2020-10-22 06:34] LABS: OR HCG Qualitative Urine Negative (Negative)
[2020-10-22] MEDS: sodium chloride 0.9% 1,000 ML 30 ML IV (06:36)
--- NOTE | 2020-10-22 06:36 | ANES.PREANE2 ---
Pre-Anesthetic Assessment Pre-Anesthetic Assessment: Height/Weight: Height 1.73 m Weight 106.141 kg Temp Pulse Resp BP Pulse Ox 97.9 F 79 18 113/70 98 10/22/20 06:10 10/22/20 06:10 10/22/20 06:10 10/22/20 06:10 10/22/20 06:10 Preop Diagnosis: Carpal tunnel syndrome Left wrist Proposed Procedure: Operation Date: 10/22/20 07:00 Proposed Procedures p left Carpal Tunnel Release [id number] g56.03(Left) - aGnga Matthews MD Familial anesthetic complications: none Was Beta Adam taken within 24 hours: N/A Was Clonidine taken within 24 hours: N/A Last intake: Intake Last Liquid Date 10/21/20 Last Liquid Time 23:30 Last Solid Date 10/21/20 Last Solid Time 23:30 Social: Social History: Tobacco and No alcohol Exam: Pre-Anes Outpt Exam: alert, oriented x 3, clear to auscultation bilaterally and regular rate & rhythm Airway: Cervical ROM: WNL MP: 2 Dentition: Chipped Pulmonary: Pulmonary: Asthma (took inhaler this morning) Hepatic: Hepatic: Hepatitis (C) GI: GI: GERD Anesthetic Plan: ASA status: 2 Anesthesia: MAC and Regional (specify below) (viridiana block) Risk of > 500 ml blood loss (7ml/kg in children): No PFSH Anesthesia PFSH: Medical History Asthma Medical management and to be followed up on by PCP service as an outpatient Bleeding per rectum Breast feeding status of mother Hepatitis C She completed 3 months of Epclusa in 2019 Surgical History History of laparoscopic cholecystectomy (~08/2019) Family History Other Diabetes Denies family history of Anesthesia complication Bleeding disorder Social History Smoking and tobacco status: current every day smoker cigarettes Alcohol intake: current Alcohol intake frequency: holidays/special occasions only Adopted: No Lives independently: Yes Marital status: Single History of recent travel: No Current gender identity: Female Female Reproductive History: Date of last menstrual period: 10/05/20 Data Anesthesia Other Labs: Laboratory Results - last 48 hr 10/22/20 06:26 Urine HCG, Qual Negative Cardiac Studies: No Data to Display
--- NOTE | 2020-10-22 06:57 | W.PM.OPSUD ---
Surgery/Procedure H&P Update DATE OF PROCEDURE: October 22, 2020 DATE H&P PERFORMED: 09/30/20 H&P UPDATE INFORMATION: I have reviewed H&P completed within last 30 days, I have examined patient prior to procedure and No changes to prior documentation PREOP DIAGNOSIS: Carpal tunnel syndrome Left wrist PLANNED PROCEDURE: Operation Date: 10/22/20 07:00 Proposed Procedures p left Carpal Tunnel Release [id number] g56.03(Left) - Ganga Matthews MD
--- NOTE | 2020-10-22 08:05 | PM.OP ---
Operative Report Date of procedure: October 22, 2020 Pre-op Diagnosis: Carpal tunnel syndrome Left wrist Post-op diagnosis: same Post-op Findings: Same Procedure Done: Left carpal tunnel release Pathology: none sent Surgeon: Ganga Matthews Anesthesia: General Estimated blood loss (mL): 5 Tourniquet time (min): 20 Findings: No masses or space-occupying lesions were identified within the carpal tunnel Condition: stable Disposition: PACU Procedure: Patient was taken to the operating room and anesthesia provided by the anesthesia service. She was prepped and draped with the arm exposed. A timeout was performed. A 3 cm long incision was made in line with the fourth ray from the distal edge of the carpal tunnel extending proximally. The subcutaneous fat and palmar fascia was divided with a scalpel blade. Under loupe magnification the ulnar neurovascular bundle was identified distally. A hemostat could be passed under the transverse carpal ligament allowing the distal 25% to be divided. A slotted guide was then passed beneath the transverse carpal ligament and the middle 50% divided. Blunt scissors were then passed over the guide freeing the proximal ligament. The tourniquet was deflated. Hemostasis provided with electrocautery. Wound edges were infiltrated with 10 cc of a half percent Marcaine solution. Skin edges were reapproximated with 3-0 Prolene. Sterile dressings were applied. The patient was taken to the recovery room in stable condition
--- NOTE | 2020-10-22 16:52 | ANE.PACU2 ---
Inpatient post-anesthesia follow up: Airway intact: Yes Vital signs: Temperature 97.7 F Pulse Rate 84 Respiratory Rate 16 Blood Pressure 112/71 Pulse Oximetry 94 Oxygen Delivery Me thod Room Air Oxygen Flow Rate 8 Fraction of Inspir ed Oxygen Hydration adequate: Yes Nausea and vomiting: No Pain level: 2 Mental status: Baseline
== END 2020-10-22 08:45 | disposition home or self-care (01) ==
PROVIDERS: PCP Nurse Practitioner Family; Visit Provider Orthopaedic Surgery
PROC: (CPT 64721; principal; 2020-10-22 07:00)
DX: G56.02 Carpal tunnel syndrome, left upper limb (principal); Z86.19 Personal history of other infectious and parasitic diseases
CPT/HCPCS: 64721; 81025; 84703; J0690; J2250; J2704; J3010; J3490; J7030

== ENCOUNTER → 2020-11-18 08:48 | Outpatient (BNVA) | payer MEDICAID, SELFPAY | PROVIDERS: PCP Nurse Practitioner Family; Visit Provider Anesthesiology Pain Medicine | DX: G89.29 Other chronic pain (principal); M54.5 Low back pain; M50.223 Other cervical disc displacement at C6-C7 level; M50.322 Other cervical disc degeneration at C5-C6 level; M48.02 Spinal stenosis, cervical region; R51.9 Headache, unspecified; F17.210 Nicotine dependence, cigarettes, uncomplicated | CPT/HCPCS: 99214 ==

== ENCOUNTER 2020-12-27 17:48 | Emergency (ER) | payer MEDICAID, SELFPAY ==
[2020-12-27 17:51] VITALS: BP 126/90; PULSE 100; RESP 18; TEMP 36.9; O2SAT 98; BMI 34.5
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
[2020-12-27] MEDS: ondansetron 4 MG Tablet PO (18:30)
[2020-12-27 19:02] VITALS: RESP 18; TEMP 36.9; O2SAT 98
== END 2020-12-27 19:02 | disposition home or self-care (01) ==
PROVIDERS: Emergency Provider Nurse Practitioner Family; PCP Nurse Practitioner Family
DX: O9A.211 Injury, poisoning and certain other consequences of external causes complicating pregnancy, first trimester (principal); S16.1XXA Strain of muscle, fascia and tendon at neck level, initial encounter; Z86.19 Personal history of other infectious and parasitic diseases; O99.331 Smoking (tobacco) complicating pregnancy, first trimester; F17.210 Nicotine dependence, cigarettes, uncomplicated; Z3A.09 9 weeks gestation of pregnancy; V89.2XXA Person injured in unspecified motor-vehicle accident, traffic, initial encounter
CPT/HCPCS: 72040; 99283; Q0162

== ENCOUNTER 2021-01-10 12:47 | Emergency (ER) | payer MEDICAID, SELFPAY ==
[2021-01-10 13:19] VITALS: BP 109/77; PULSE 95; RESP 18; TEMP 35.9; O2SAT 98; BMI 34.0
[2021-01-10] MEDS: sodium chloride 0.9% 1,000 ML 999 ML IV ×2 (13:40→15:11)
--- NOTE | 2021-01-10 13:50 | ED_ITS ---
HPI - General Adult General: Chief complaint: General Medical Stated complaint: 11 wks preg n/v pcp sent for fluids Time Seen by Provider: 01/10/21 13:41 Source: patient Mode of arrival: ambulatory Limitations: no limitations History of Present Illness: HPI narrative: 25-year-old female who is currently 10 weeks states she had vomiting throughout this would be much worse over the last 3 days. States her last 3 days she is feeling dehydrated urine has been dark and she has not been able to tolerate anything p.o. Some mild lower abdominal cramping she rates 2 out of 10. Denies any worsening proving factors. Denies any fevers. Associated symptoms: Reports nausea and vomiting; Deny chest pain, dyspnea, headache(s) or rash Review of Systems Const: Denies: fever(s), chills, body aches or change in appetite Eyes: Denies: blurry vision or eye discomfort ENMT: Denies: throat pain or dental pain Card: Denies: chest pain Resp: Denies: dyspnea GI: Reports: abdominal pain, nausea and vomiting : Denies: dysuria Musc: Denies: neck pain or back pain Skin/Breast: Denies: rash Neuro: Denies: headache(s) Psych: Denies: depression Evens/Lymph: Denies: easy bruising All/Imm: Denies: urticaria PFSH ED PFSH: Medical History Asthma Medical management and to be followed up on by PCP service as an outpatient Bleeding per rectum Breast feeding status of mother Hepatitis C She completed 3 months of Epclusa in 2019 Surgical History History of laparoscopic cholecystectomy (~08/2019) Family History Other Diabetes Denies family history of Anesthesia complication Bleeding disorder Social History Smoking and tobacco status: current every day smoker cigarettes Alcohol intake: current Alcohol intake frequency: holidays/special occasions only Adopted: No Lives independently: Yes Marital status: Single History of recent travel: No Current gender identity: Female Female Reproductive History: Date of last menstrual period: 10/05/20 Physical Exam Const: COMMON NORMALS: no acute distress, patient oriented x3 and healthy katelyn earing HENMT: COMMON NORMALS: normocephalic and atraumatic HEAD & SCALP: normocephalic and atraumatic Eye: COMMON NORMALS: Equal, round and reactive pupils present and EOMs intact bilaterally PUPIL: Yes Equal, round and reactive pupils present Neck/C-Spine: COMMON NORMALS: full ROM and supple Chest: COMMONS NORMALS: normal inspection of the chest and normal palpation of entire chest wall Resp: COMMON NORMALS: normal respiratory effort, No retractions, No use of accessory muscles and clear to auscultation bilaterally AUSCULTATION: clear to auscultation bilaterally Cardio: COMMON NORMALS: regular rate, regular rhythm and No murmurs present (Cardio) RATE: regular rate RHYTHM: regular rhythm GI: COMMON NORMALS: Normal to inspection, nondistended, normoactive bowel sounds present, Soft to palpation, non-tender and no masses PALPATION: Yes Soft to palpation Extremity: COMMON NORMALS: normal to inspection and full ROM Neuro: COMMON NORMALS: patient oriented x3, moves all extremities and no focal motor deficits Psych: COMMON NORMALS: mental status grossly normal, Normal thought process present and cooperative THOUGHT PROCESS: Normal thought process present Skin: COMMON NORMALS: no rashes or lesions noted and no wounds GENERAL SKIN EXAM: no rashes or lesions noted Course Vital Signs: Vital signs: Vital Signs Temperature 96.7 F L 01/10/21 13:19 Pulse Rate 88 01/10/21 13:54 Respiratory Rate 18 01/10/21 13:54 Blood Pressure 105/66 01/10/21 13:54 Pulse Oximetry 100 01/10/21 13:54 MDM - General Adult MDM Narrative: Medical decision making narrative: Patient presents here with hyperemesis gravidarum along with urinary tract infection. Patient feels much improved here after IV Reglan and IV fluids. She has p.o. Reglan at home is to continue take that we will treat her UTI with Keflex. She is to follow-up with her OB and return if worsening. Bedside ultrasound showed IUP with heart rate of 148. Lab Data: Labs: Lab Results 01/10/21 01/10/21 01/10/21 13:05 13:52 13:52 WBC 9.4 10^3/uL 10^3/ uL (4.0-10.0) RBC 4.76 10^6/uL 10^6 /uL (4.1-5.3) Hgb 13.8 g/dL g/dL (11.5-15.3) Hct 41.8 % % (37.0-47.0) MCV 87.8 fl fl (81-99) MCH 29.0 pg pg (28.0-34.0) MCHC 33.0 g/dL g/dL (30.0-36.0) RDW 14.6 % % (12.1-15.1) Plt Count 232 10^3/cmm 10^3 /cmm (130-400) MPV 11.7 fL H fL (7.4-10.4) Neut % (Auto) 67.9 % % Lymph % (Auto) 23.9 % % O[place] % (Auto) 4.8 % % Eos % (Auto) 2.8 % % Baso % (Auto) 0.4 % % Neut # (Auto) 6.41 10^3/uL 10^3 /uL (1.8-7.7) Lymph # (Auto) 2.3 10^3/uL 10^3/ uL (0.8-4.8) O[place]o # (Auto) 0.5 10^3/uL 10^3/ uL (0.2-0.9) Eos # (Auto) 0.3 10^3/uL 10^3/ uL (0.0-0.8) Baso # (Auto) 0.0 10^3/uL 10^3/ uL (0.0-0.1) Nucleated RBC % (a uto) 0 % % Nucleated RBCs # 0.0 /100WBC /100W BC Sodium 134 mmol/L L mmol /L (136-145) Potassium 4.1 mmol/L mmol/L (3.5-5.1) Chloride 103 mmol/L mmol/L (98-107) Carbon Dioxide 18 mmol/L L mmol/ L (22-29) Anion Gap 17.1 (5-19) BUN 8 mg/dL mg/dL (6-20) Creatinine 0.5 mg/dL mg/dL (0.5-0.9) GFR Calculation 150.3 mL/min H mL /min (90-130) Glucose 85 mg/dL mg/dL (65-115) Calculated Osmolal ity 276 mOsm/kg L mOs m/kg (285-295) Calcium 9.1 mg/dL mg/dL (8.5-10.5) Total Bilirubin 0.5 mg/dL mg/dL (0.15-1.2) AST 20 U/L U/L (0-32) ALT 23 U/L U/L (0-33) Alkaline Phosphata se 76 IU/L IU/L (35-105) Total Protein 7.4 g/dL g/dL (6.6-8.7) Albumin 4.1 g/dL g/dL (3.5-5.2) Globulin 3.3 g/dL g/dL (1.3-4.6) Lipase 19 U/L U/L (13-60) Urine Color Vi (Yellow) Urine Appearance Clear (CLEAR) Urine pH 5 (5-7) Ur Specific Gravit y 1.025 (1.005-1.030) Urine Protein 1+ H (Negative) Urine Glucose (UA) Norm (Normal) Urine Ketones 1+ H (Negative) Urine Blood 2+ H (Negative) Urine Nitrate Negative (Negative) Urine Bilirubin 1+ H (Negative) Urine Urobilinogen 1 mg/dL H mg/dL (Negative) Ur Leukocyte Henna ase 1+ H (Negative) Urine RBC 5-10 /hpf H /hpf (0-2) Urine WBC 10-15 /hpf H /hpf (0-5) Ur Squamous Epith Cells 5-10 /hpf H /hpf (0-5) Amorphous Sediment Not Reportable Urine Bacteria 2+ /hpf H /hpf (NONE) Discharge Plan Discharge Patient Disposition: Home Clinical Impression: Vomiting affecting , Acute cystitis Condition: Stable Prescriptions: New cephalexin 500 mg capsule 500 mg PO TID 7 Days Qty: 21 RF: 0 No Action ascorbate calcium (vitamin C) 500 mg tablet 500 mg PO DAILY RF: 0 gabapentin 300 mg capsule 300 mg PO DAILY PRN (Reason: Pain) RF: 0 albuterol sulfate 90 mcg/actuation aero powdr breath act w/sensor 1 inh INHALATION Q6H PRN (Reason: Shortness Of Breath) RF: 0 loratadine 10 mg tablet 10 mg PO DAILY@0800 PRN (Reason: Allergy Symptoms) RF: 0 ibuprofen 600 mg tablet 600 mg PO TID RF: 0 Excedrin Extra Strength 250-250-65 mg Tablet 1 tab PO Q6H PRN (Reason: PAIN/HEADACHE) RF: 0 escitalopram oxalate 10 mg tablet 10 mg PO DAILY@1100 RF: 0 pantoprazole 40 mg tablet,delayed release (DR/EC) 40 mg PO DAILY@0800 RF: 0 ferrous sulfate [iron] 325 mg (65 mg iron) Tablet 325 mg PO DAILY RF: 0 montelukast [Singulair] 10 mg Tablet 10 mg PO DAILY RF: 0 ondansetron 4 mg tablet,disintegrating 4 mg PO Q8H PRN (Reason: nausea and vomiting) Qty: 14 RF: 0 Discharge Orders: Discharge ED (Routine); Ordered 01/10/21 Ordered By: Mariam Chang Referrals: Jaye Baires FNP [Primary Care Provider] - Discharge Diet: Advance as tolerated Discharge Activity: Resume usual activity Patient Instructions: Hyperemesis Gravidarum (ED), Urinary Tract Infection in W [place]ronn (ED) Coding Level of Care Code ED Shipping Services Sales Representative for Tiburcio Keller
[2021-01-10 13:54] VITALS: BP 105/66; PULSE 88; RESP 18; O2SAT 100
[2021-01-10 13:59] LABS: Basophils % 0.4 %; Eosinophils # 0.3 10^3/uL (0.0-0.8); Eosinophils % 2.8 %; Hematocrit 41.8 % (37.0-47.0); Hemoglobin 13.8 g/dL (11.5-15.3); Lymphocytes # 2.3 10^3/uL (0.8-4.8); Lymphocytes % 23.9 %; Mean Corpuscular Volume 87.8 fl (81-99); Mean Platelet Volume 11.7 fL (7.4-10.4); Monocytes # 0.5 10^3/uL (0.2-0.9); Monocytes % 4.8 %; Neutrophils # 6.41 10^3/uL (1.8-7.7); Neutrophils % 67.9 %; Nucleated Red Blood Cells % 0 %; Platelet Count 232 10^3/cmm (130-400); Red Blood Count 4.76 10^6/uL (4.1-5.3); Red Cell Distribution Width 14.6 % (12.1-15.1); White Blood Count 9.4 10^3/uL (4.0-10.0)
[2021-01-10 14:27] LABS: Specific Gravity, Urine 1.025 (1.005-1.030); Urine Appearance Clear (CLEAR); Urine Color Amber (Yellow); pH Urine 5 (5-7)
[2021-01-10 14:28] LABS: Add Urine Culture? Yes; Add Urine Microscopic? YES; Bacteria Urine 2+ /hpf; Bilirubin Urine 1+ (Negative); Blood Urine 2+ (Negative); Glucose Urine UA Norm (Normal); Ketones Urine 1+ (Negative); Leukocyte Esterase Urine 1+ (Negative); Nitrate Urine Negative (Negative); Protein Urine 1+ (Negative); Urobilinogen Urine 1 mg/dL (Negative)
[2021-01-10 14:38] LABS: Alanine Aminotransferase 23 U/L (0-33); Albumin Level 4.1 g/dL (3.5-5.2); Alkaline Phosphatase 76 IU/L (35-105); Anion Gap 17.1 (5-19); Aspartate Amino Transferase 20 U/L (0-32); Blood Urea Nitrogen 8 mg/dL (6-20); Calcium 9.1 mg/dL (8.5-10.5); Carbon Dioxide 18 mmol/L (22-29); Chloride 103 mmol/L (98-107); Globulin 3.3 g/dL (1.3-4.6); Glomerular Filtration Rate 150.3 mL/min (90-130); Glucose 85 mg/dL (65-115); Lipase 19 U/L (13-60); Osmolality Calculated 276 mOsm/kg (285-295); Potassium 4.1 mmol/L (3.5-5.1); Sodium 134 mmol/L (136-145); Total Bilirubin 0.5 mg/dL (0.15-1.2); Total Protein 7.4 g/dL (6.6-8.7)
[2021-01-10] MEDS: metoclopramide 5 mg/mL SDV 2 mL 10 MG IVP (15:11)
[2021-01-10] MEDS: cefTRIAXone 1,000 MG in sodium chloride 0.9% (plus) 50 ML 100 MG IV (15:11)
[2021-01-10] MEDS: diphenhydrAMINE 50 mg/mL SDV 1mL IVP (15:12)
== END 2021-01-10 16:43 | disposition home or self-care (01) ==
PROVIDERS: Emergency Provider Emergency Medicine; PCP Nurse Practitioner Family
DX: O23.11 Infections of bladder in pregnancy, first trimester (principal); O21.9 Vomiting of pregnancy, unspecified; Z3A.10 10 weeks gestation of pregnancy; Z86.19 Personal history of other infectious and parasitic diseases; O99.331 Smoking (tobacco) complicating pregnancy, first trimester; F17.210 Nicotine dependence, cigarettes, uncomplicated
CPT/HCPCS: 80053; 81001; 83690; 85025; 87086; 96365; 96375; 99284; J0696; J1200; J2765; J7030

== ENCOUNTER 2021-01-22 13:54 | Outpatient (CLI) | payer MEDICAID, SELFPAY ==
--- NOTE | 2021-01-22 14:01 | US_ITS ---
WS: [id number] ULTRASOUND EARLY TECHNIQUE: Transabdominal sonography of the pelvis was performed. Followed by transvaginal sonography to better evaluate the uterus and ovaries. CLINICAL INFORMATION: EARLY DATING LMP: 10/27/2020 Beta hCG: Unknown. COMPARISON: None. FINDINGS: Cervix is long and closed measuring 4.2 cm UTERUS AND GESTATIONAL SAC Intrauterine gestations: Estimated gestational age: 12w5d Estimated delivery August 01, 2021 [place] rump length (CRL): 6.3 cm. heart motion: 160 BPM. Subchorionic hemorrhage: None. OVARIES Right ovary: Normal. Left ovary: Normal. FREE FLUID None. US/US OB <= 14 weeks fetus [id number] IMPRESSION: 1. Single live intrauterine . 2. Estimated gestational age; 12w5d with estimated delivery August 01, 2021 3. Cervix is long and closed. 4. Anterior placenta.
== END 2021-01-22 13:55 | disposition home or self-care (01) ==
LOC: RAD 13:56
PROVIDERS: PCP Nurse Practitioner Family; Visit Provider Obstetrics & Gynecology
DX: O36.80X1 Pregnancy with inconclusive fetal viability, fetus 1 (principal); Z3A.12 12 weeks gestation of pregnancy
CPT/HCPCS: 76801

== ENCOUNTER 2021-07-02 22:15 | Outpatient (CLI) | payer MEDICAID, SELFPAY ==
[2021-07-02 22:25] VITALS: BP 123/69; PULSE 89
[2021-07-02 22:33] VITALS: RESP 16; TEMP 36.4
[2021-07-02 22:34] VITALS: BMI 36.1
[2021-07-02 22:39] LABS: Bilirubin Urine Neg (Negative); Blood Urine Neg (Negative); Glucose Urine UA Norm (Normal); Ketones Urine 1+ (Negative); Leukocyte Esterase Urine Trace (Negative); Nitrate Urine Negative (Negative); Protein Urine Neg (Negative); Urine Appearance Clear (CLEAR); Urine Color Yellow (Yellow); Urobilinogen Urine Norm (Negative); pH Urine 6 (5-7)
[2021-07-02 22:41] VITALS: BP 111/61; PULSE 86
[2021-07-02 22:46] LABS: Add Urine Culture? No; Amorphous Sediment Urine 2+ /hpf; Bacteria Urine 2+ /hpf; RBC Urine 0-4 /hpf (0-2); Squamous Epithelial Cell Urine 15-25 /hpf (0-5)
[2021-07-02 22:48] LABS: Amphetamines Screen Urine Negative (Negative); Barbiturates Screen Urine Negative (Negative); Benzodiazepines Screen Urine Negative (Negative); Cocaine Screen Urine Negative (Negative); Opiate Screen Urine Negative (Negative); PCP Screen Urine Negative (Negative); THC Screen Urine Positive (Negative)
[2021-07-02 22:55] VITALS: BP 102/62; PULSE 89
[2021-07-02 23:12] VITALS: BP 111/69; PULSE 81
== END 2021-07-02 23:22 | disposition home or self-care (01) ==
LOC: OPOB 22:20 → OBGYN 22:21
PROVIDERS: PCP Nurse Practitioner Family; Visit Provider Family Medicine
DX: O36.8190 Decreased fetal movements, unspecified trimester, not applicable or unspecified (principal); Z3A.00 Weeks of gestation of pregnancy not specified
CPT/HCPCS: 59025; 80306; 81001; 83986; 99211

== ENCOUNTER 2021-07-30 01:17 | Inpatient (IN) | payer MEDICAID, SELFPAY ==
[2021-07-30] VITALS (45 sets, daily range): BP systolic 100–149; BP diastolic 60–110; PULSE 75–144; RESP 15–18; TEMP 36.6–36.9; O2SAT 96–97; BMI 36.0
[2021-07-30 01:37] LABS: Basophils # 0.1 10^3/uL (0.0-0.1); Basophils % 0.6 %; Eosinophils # 0.3 10^3/uL (0.0-0.8); Hematocrit 32.9 % (37.0-47.0); Lymphocytes # 1.8 10^3/uL (0.8-4.8); Lymphocytes % 21.3 %; Mean Corpuscular HGB Conc 33.4 g/dL (30.0-36.0); Mean Corpuscular Volume 95.6 fl (81-99); Mean Platelet Volume 13.3 fL (7.4-10.4); Monocytes # 0.5 10^3/uL (0.2-0.9); Monocytes % 6.3 %; Neutrophils % 68.5 %; Nucleated Red Blood Cells % 0 %; Platelet Count 97 10^3/cmm (130-400); Red Blood Count 3.44 10^6/uL (4.1-5.3); Red Cell Distribution Width 13.1 % (12.1-15.1); White Blood Count 8.6 10^3/uL (4.0-10.0)
[2021-07-30 01:53] LABS: Amphetamines Screen Urine Negative (Negative); Barbiturates Screen Urine Negative (Negative); Benzodiazepines Screen Urine Negative (Negative); Cocaine Screen Urine Negative (Negative); Opiate Screen Urine Negative (Negative); PCP Screen Urine Negative (Negative); THC Screen Urine Positive (Negative)
[2021-07-30] MEDS: lactated ringers 1,000 ML 999 ML IV (01:53)
[2021-07-30 02:09] LABS: Slide Review Slide Review Perform
[2021-07-30 05:00] LABS: Alanine Aminotransferase 8 U/L (0-33); Albumin Level 3.2 g/dL (3.5-5.2); Alkaline Phosphatase 127 IU/L (35-105); Aspartate Amino Transferase 12 U/L (0-32); Blood Urea Nitrogen 3 mg/dL (6-20); Calcium 8.8 mg/dL (8.5-10.5); Carbon Dioxide 21 mmol/L (22-29); Chloride 103 mmol/L (98-107); Globulin 2.6 g/dL (1.3-4.6); Glomerular Filtration Rate 149.1 mL/min (90-130); Glucose 92 mg/dL (65-115); Osmolality Calculated 280 mOsm/kg (285-295); Sodium 137 mmol/L (136-145); Total Bilirubin 0.2 mg/dL (0.15-1.2); Total Protein 5.8 g/dL (6.6-8.7)
--- NOTE | 2021-07-30 07:08 | PM.OBGYHP ---
Providers/Chief Complaint Admitting Physician: Lexi Cruz DO Primary PLUMBING AND HEATING CONTRACTOR: Dr. Arce Primary Care Provider: JORDAN Florez Chief Complaint: contractions HPI PLUMBING AND HEATING CONTRACTOR History of Present Illness Althea Barrow is a 26 year old female with PMHx Hep C- treated, asthma presenting with contractions. Started approx 2100 on 07/29/21. Denies LOF. Good movement. She has had care since [address] Arce. On initial exam she is feeling well, contractions starting to increase. She is allergic to amoxicillin and reaction is a rash however she has had cephalexin without any reaction Present Details : 5 Para: 3 Date of Last Menstrual Period: 10/27/20 Calculated Date of Delivery: 08/03/21 Gestational Age Based on Last Menstrual Period: 39 Dating criteria OB: LMP confirmed by 1st trimester US care: good care Abnormal OB US findings: US 01/22/21: 12w5d- full report not seen US 03/19/2021: Cephalic, ant placenta, female, single viable IUP, EMILIANA wnl, no obvious anomalies- incomplete anatomy scan US 04/16/21: cephalic, ant placenta, EMILIANA wnl, no obvious anomalies Labs Blood type OB HPI: O (+) positive Rubella: Immune RPR: Negative GBS: Positive HBsAG: Negative Other Lab Information: Antibody negative Hgb/Hct 12/31/20 12.2/36.8 Hgb 05/31/21 10.5 Plt 234 12/31/20 Pap LSIL Varicella Immune UCx negative HIV negative TSH 0.14 hep C positive- quant PCR [id number] WBC 8.1 GC/Chlamydia neg/neg 1hr GTT 105 UDS THC+ Review of Systems General: Reports: 10 or more systems reviewed and unremarkable except in HPI and below Medications/Allergies Home Medications Medication Instructions Recorded Confirmed Last Taken Type ferrous sulfate 325 mg (65 mg 325 mg PO DAILY 10/21/20 07/30/21 07/29/21 11:00 History iron) tablet (iron) escitalopram oxalate 10 mg tablet 10 mg PO DAILY 07/02/21 07/30/21 07/29/21 11:00 History famotidine 40 mg tablet 40 mg PO DAILY 07/02/21 07/30/21 07/29/21 11:00 History loratadine 10 mg tablet 10 mg PO DAILY 07/02/21 07/30/21 07/29/21 11:00 History vits no.124-ferrous fum 1 tab PO DAILY 07/02/21 07/30/21 07/29/21 11:00 History 27 mg iron-folic acid 800 mcg tablet ( Vitamin) Allergies Allergy/AdvReac Type Severity Reaction Status Date / Time amoxicillin Allergy rash Verified 07/30/21 01:13 PFSH PLUM[employer]ING AND HEATING CONTRACTOR PFSH: Medical History Asthma Medical management and to be followed up on by PCP service as an outpatient Bleeding per rectum Breast feeding status of mother Hepatitis C She completed 3 months of Epclusa in 2019 Surgical History History of laparoscopic cholecystectomy (~08/2019) Family History Other Diabetes Denies family history of Anesthesia complication Bleeding disorder Social History Smoking and tobacco status: current every day smoker cigarettes Alcohol intake: current Alcohol intake frequency: holidays/special occasions only Adopted: No Lives independently: Yes Marital status: Single History of recent travel: No Current gender identity: Female History History History 5 Term 3 Miscarriages/Ectopic 1 0 Living Children 3 Other History: 1: May 2014 39w1d 8lbs 2oz 2: 2015 40w0d 7lbs 15oz 3: 2017 4-6w0d Spontaneous 4: Mar 2019 40w3d 3572 g Vitals/I&O/Wt Last Vital Signs Pulse 82 07/30/21 06:53 Resp 15 07/30/21 01:25 BP 132/84 07/30/21 06:53 Weight last 48 hrs Weight 230 lb Physical Exam Narrative: Examined, in left lateral position with left leg resting in stirrup Const: COMMON NORMALS: no acute distress and alert Resp: COMMON NORMALS: normal respiratory effort Extremity: COMMON NORMALS: no pedal edema Psych: COMMON NORMALS: mental status grossly normal Data : 07/30/21 00:47 07/30/21 03:49 Other data: EFM: baseline 130, mod variability, +accels, no decels Category 1 [place]: q2-5 min contractions A&P Assessment and plan (1) Active labor at term: Admit for labor. SVE progressed from 4/50/-3 to 6/95/-3 in 1 hours. Start IVF, NPO. Anticipate vaginal delivery. Category 1 EFM Status: Acute (2) Hepatitis C: Has been previously treated in 2019 with negative viral low following. records report negative viral load in 1st trimester however had increased by lab report on 12/31/20 quant PCR [id number]. Repeat viral load pending. Will get CMP as well. Status: Chronic Qualifiers: Hepatic coma status: without hepatic coma Viral hepatitis chronicity: chronic Qualified Code(s): B18.2 - Chronic viral hepatitis C (3) Thrombocytopenia: Unable to get epidural per protocol. DDx gestational thrombocytopenia- will recheck in AM Status: Acute (4) Anemia: On iron supplement Status: Acute (5) Positive GBS test: Start Cefazolin 2g and Cefazolin 1g q8h until delivery following Status: Acute Attestations Medical Necessity Statement*: [facility]'s hospital stay will be less than 2 midnights for term delivery of female . Coding Level of Care Code Acute Almond Paste Mixer for Chg Fwd Exam Expanded Problem Focused Diagnoses Active labor at term Hepatitis C B18.2 Hepatic coma status: without hepatic coma Viral hepatitis chronicity: chronic Thrombocytopenia D69.6 Anemia D64.9 Positive GBS test B95.1
[2021-07-30] MEDS: lidocaine 2% INJ 20 mL INJECTION (08:33)
[2021-07-30] MEDS: oxytocin 30 UNIT/500 ML BAG 999 UNIT IV ×2 (08:33→09:52)
[2021-07-30] MEDS: miSOPROStol 200 mcg Tablet 800 MCG PR (08:33)
--- NOTE | 2021-07-30 09:52 | P.PCNOB_ITS ---
Delivery Note: Date of delivery: July 30, 2021 Pre-delivery diagnoses: 26yo at 39w4d by LMP=1st trimester US History of hepatitis C infection- treated in 2019 Marijuana use in Thrombocytopenia Anemia Post-delivery diagnoses: Term delivery of viable female via spontaneous vaginal delivery History of hepatitis C infection- treated in 2019 Marijuana use in Thrombocytopenia Anemia Procedure: Spontaneous Vaginal Delivery Delivering Physician: Lexi Cruz DO Estimated blood loss (mL): 250 Pre-Delivery Course: Presented to L&D with contractions starting 2100 on 07/29/21. She continued with irregular contractions every 2-5 minutes and progressed slowly to 7/95/-3. Category 1 FHT. AROM at approx 0715 with thin meconium. She progressed to complete and I was called at approx 0810 for delivery. Delivery: On entering the room, baby had delivered with placenta undelivered. Cord clamped and cut and baby placed on maternal abdomen. Was noted to have spontaneous cry but with poor tone and respiratory effort. Baby subsequently transferred to [facility] for further resuscitation by nursing staff. Peds electron beam welder setter- Dr. Lewis called to delivery at that time as well. Placenta delivered with gentle traction and intact with membranes. The fundus was noted to be moderately boggy. Pitocin started and with fundal massage noted to improve. Lower uterine segment then swept free of clots. Given 800mg cytotec [place]. Fundus then noted to be firm and well contracted. The vagina and cervix were inspected and no cervical lacerations noted. Right labial 1st degree lacerated noted and repaired using 3-0 vicryl for hemostasis and approx 3cc local anesthesia. Noted to be hemostatic after repair. Noted to have 1st degree midline posterior sulcus tear however was noted to be hemostatic and not repaired. Superior to urethra but not contiguous with urethra noted abrasion that was hemostatic and not repaired. Female born at 0814 with Apgars 7/5/9 weighing 7lb 10oz. Post-Delivery Status: Mother tolerated well and left to recover in stable condition. Baby transferred to nursery under care of Dr. Lewis- ISAAC electron beam welder setter for further care. History History History 5 Term 4 Miscarriages/Ectopic 1 0 Living Children 4 Other History: 1: May 2014 39w1d 8lbs 2oz 2: 2015 40w0d 7lbs 15oz 3: 2017 4-6w0d Spontaneous 4: Mar 2019 40w3d 3572 g 5: today Coding Level of Care Code Acute Oil Spot Washer for Tiburcio Keller
--- NOTE | 2021-07-30 10:19 | PC.NURSE ---
Rounding-This nurse in room to have patient sign admission paperwork for baby. Mother asked about the status of the baby( in nursery). this nurse called in to nursery and the mother was able to communicate with the primary nurse that is taking care of her . The nursery number was placed on her patient care board and she was educated to call the number any time she wanted an update or to talk with the care nurse.
[2021-07-30] MEDS: escitalopram 10 mg Tablet PO (10:56)
[2021-07-30] MEDS: potassium chloride ER 20 mEq Tablet PO (10:56)
--- NOTE | 2021-07-30 11:28 | PC.NURSE ---
0915 PT AMBULATED TO OB 11. DID WELL.
[2021-07-30] MEDS: ibuprofen 800 mg tablet PO ×2 (14:59→21:24)
[2021-07-30] MEDS: HYDROcodone-acetaminophen 5-325 mg Tablet PO ×2 (18:34→23:45)
[2021-07-30 19:53] LABS: Hematocrit 32.1 % (37.0-47.0); Hemoglobin 11.2 g/dL (11.5-15.3); Mean Corpuscular HGB Conc 34.9 g/dL (30.0-36.0); Mean Corpuscular Hemoglobin 32.7 pg (28.0-34.0); Mean Corpuscular Volume 93.9 fl (81-99); Mean Platelet Volume 13.2 fL (7.4-10.4); Platelet Count 93 10^3/cmm (130-400); Red Blood Count 3.42 10^6/uL (4.1-5.3); Red Cell Distribution Width 13.1 % (12.1-15.1); White Blood Count 9.9 10^3/uL (4.0-10.0)
[2021-07-30 20:09] LABS: Absolute Eosinophils 0.4 10^3/cmm (0.0-0.7); Absolute Neutrophil 7.2 10^3/cmm (1.4-6.5); Absolute Segmented Neutrophil 7.2 10/cmm (1.6-7.1); Eosinophils 5 %; Lymphocytes 15 %; Lymphocytes Absolute 1.7 10^3/cmm (1.2-3.4); Monocytes Absolute 0.5 10^3/cmm (0.1-0.6); Platelet Estimate Decreased (Normal); Segmented Neutrophils 73 %; Total Cells Counted 100 (0-100)
[2021-07-31 08:40] LABS: Alanine Aminotransferase 6 U/L (0-33); Albumin Level 3.1 g/dL (3.5-5.2); Alkaline Phosphatase 111 IU/L (35-105); Anion Gap 13.1 (5-19); Aspartate Amino Transferase 19 U/L (0-32); Blood Urea Nitrogen 4 mg/dL (6-20); Calcium 7.9 mg/dL (8.5-10.5); Carbon Dioxide 24 mmol/L (22-29); Chloride 104 mmol/L (98-107); Globulin 2.2 g/dL (1.3-4.6); Glomerular Filtration Rate 149.1 mL/min (90-130); Glucose 98 mg/dL (65-115); Osmolality Calculated 281 mOsm/kg (285-295); Potassium 4.1 mmol/L (3.5-5.1); Sodium 137 mmol/L (136-145); Total Bilirubin 0.2 mg/dL (0.15-1.2); Total Protein 5.3 g/dL (6.6-8.7)
[2021-07-31] MEDS: docusate sodium 100 mg Capsule PO (09:47)
[2021-07-31] MEDS: prenatal vitamin Capsule 1 CAP PO (09:47)
[2021-07-31] MEDS: ibuprofen 800 mg tablet PO (09:47)
[2021-07-31] MEDS: escitalopram 10 mg Tablet PO (09:48)
[2021-07-31 09:50] VITALS: BP 118/70; PULSE 92; RESP 15; TEMP 36.9; O2SAT 97
[2021-07-31] MEDS: HYDROcodone-acetaminophen 5-325 mg Tablet PO (12:34)
--- NOTE | 2021-07-31 13:50 | PM.OBGYDC ---
Discharge Providers WARP TYING MACHINE KNOTTER Date of Admission: 07/30/21 01:17 Date of Discharge: 08/02/21 Attending Provider at Admission: Lexi Cruz DO Attending Provider at Discharge: Lexi Cruz DO Primary WARP TYING MACHINE KNOTTER: Dr. Arce Primary Care Provider: JORDAN Florez Diagnoses at Discharge Discharge Diagnosis (1) Spontaneous vaginal delivery: Status: Acute (2) Thrombocytopenia: Status: Acute (3) Anemia: Status: Acute (4) Hepatitis C: Status: Chronic Qualifiers: Hepatic coma status: without hepatic coma Viral hepatitis chronicity: chronic Qualified Code(s): B18.2 - Chronic viral hepatitis C Permanent problem details: She completed 3 months of Epclusa in 2019 Reason for Visit Reason for Visit: contractions Hospital Course Hospital Course Patient underwent uncomplicated on 07/30/21. Following delivery patient ambulated well, tolerated a normal diet without nausea or vomiting. on PPD#1 pain was well controlled on PO medications, well, no leg/calf pain, no calf/leg swelling, normal urination, passing gas and normal bowel movements. She reported minimal light vaginal bleeding- thin lochia, uterine cramping with breast feeding- otherwise no pelvic or abdominal pain, no fevers, no chest pain or shortness of breath, no RUQ pain, no changes in vision. Her hemoglobin remained stable from 11.0 on admission to 11.2 . Her platelet count was low but also remained stable from 97 on admission to 93 . With hx Hep C and report of viral PCR levels increased prenatally- HCV RNA sent and pending at discharge. Blood pressures remained wnl. Patient desired post- tubal ligation for control however due to low platelet count, deferred to outpatient and discussed with patient she will follow-up with Dr. Arce her primary OB to arrange. She is to follow-up outpatient for low platelet count as well. Warning signs for endometritis, pre-eclampsia, DVT/PE, mastitis were reviewed, discussed additional warning signs including increased vaginal bleeding, worsening abdominal pain. Pelvic rest and activity precautions reviewed as well. She is discharged on PPD#1 in stable condition. Physical Exam Const: COMMON NORMALS: no acute distress, patient oriented x3 and alert Resp: COMMON NORMALS: normal respiratory effort and clear to auscultation bilaterally AUSCULTATION: clear to auscultation bilaterally Cardio: COMMON NORMALS: regular rate, regular rhythm, S1 normal heart sound present, S2 normal heart sound present and No murmurs present (Cardio) RATE: regular rate RHYTHM: regular rhythm HEART SOUNDS: S1 normal heart sound present and S2 normal heart sound present GI: COMMON NORMALS: Soft to palpation and non-tender PALPATION: Yes Soft to palpation : OTHER: Uterus firm, non-tender, and at the umbilicus Extremity: COMMON NORMALS: no calf tenderness and no pedal edema Neuro: COMMON NORMALS: patient oriented x3 SENSORIUM/ORIENTATION: Yes alert Psych: COMMON NORMALS: mental status grossly normal, cooperative, normal affect and speech normal SPEECH: Yes normal speech History History History 5 Term 4 Miscarriages/Ectopic 1 0 Living Children 4 Other History: 1: May 2014 39w1d 8lbs 2oz 2: 2015 40w0d 7lbs 15oz 3: 2017 4-6w0d Spontaneous 4: Mar 2019 40w3d 3572 g 5: 07/30/21 Discharge Data Studies Completed and Pending Pending at discharge Category Date Time Status HEP C RNA Viral Load Qnt [Hepatitis C RNA Viral Load Lab 07/30/21 03:49 Received Qnt] Routine Laboratory Results WBC 9.9 10^3/uL (4.0-10.0) 07/30/21 19:40 RBC 3.42 10^6/uL (4.1-5.3) L 07/30/21 19:40 Hgb 11.2 g/dL (11.5-15.3) L 07/30/21 19:40 Hct 32.1 % (37.0-47.0) L 07/30/21 19:40 MCV 93.9 fl (81-99) D 07/30/21 19:40 MCH 32.7 pg (28.0-34.0) 07/30/21 19:40 MCHC 34.9 g/dL (30.0-36.0) D 07/30/21 19:40 RDW 13.1 % (12.1-15.1) 07/30/21 19:40 Plt Count 93 10^3/cmm (130-400) L D 07/30/21 19:40 MPV 13.2 fL (7.4-10.4) H 07/30/21 19:40 Neut % (Auto) 68.5 % 07/30/21 00:47 Lymph % (Auto) 21.3 % 07/30/21 00:47 [place] % (Auto) 6.3 % 07/30/21 00:47 Eos % (Auto) 3.0 % 07/30/21 00:47 Baso % (Auto) 0.6 % 07/30/21 00:47 Neut # (Auto) 5.90 10^3/uL (1.8-7.7) 07/30/21 00:47 Lymph # (Auto) 1.8 10^3/uL (0.8-4.8) 07/30/21 00:47 [place] # (Auto) 0.5 10^3/uL (0.2-0.9) 07/30/21 00:47 Eos # (Auto) 0.3 10^3/uL (0.0-0.8) 07/30/21 00:47 Baso # (Auto) 0.1 10^3/uL (0.0-0.1) 07/30/21 00:47 Nucleated RBC % (auto) 0 % 07/30/21 00:47 Total Counted 100 (0-100) 07/30/21 19:40 Atypical Lymphs % 2.0 % (0-5) 07/30/21 19:40 Absolute Neutrophils 7.2 10^3/cmm (1.4-6.5) H 07/30/21 19:40 Segmented Neutrophils 73 % 07/30/21 19:40 Abs Segm Neuts (Man) 7.2 10/cmm (1.6-7.1) H 07/30/21 19:40 Band Neutrophils 0.0 % 07/30/21 19:40 Abs Band Neuts (Man) 0.0 10^3/cmm (0.0-1.2) 07/30/21 19:40 Absolute Lymphocytes 1.7 10^3/cmm (1.2-3.4) 07/30/21 19:40 Lymphocytes (Manual) 15 % 07/30/21 19:40 Monocytes (Manual) 5.0 % 07/30/21 19:40 Absolute Monocytes 0.5 10^3/cmm (0.1-0.6) 07/30/21 19:40 Eosinophils (Manual) 5 % 07/30/21 19:40 Absolute Eosinophils 0.4 10^3/cmm (0.0-0.7) 07/30/21 19:40 Basophils (Manual) 0.0 % 07/30/21 19:40 Absolute Basophils 0.0 10^3/cmm (0.0-0.2) 07/30/21 19:40 Nucleated RBCs # 0.0 /100WBC 07/30/21 00:47 Platelet Estimate Decreased (Normal) L 07/30/21 19:40 Sodium 137 mmol/L (136-145) 07/31/21 08:15 Potassium 4.1 mmol/L (3.5-5.1) 07/31/21 08:15 Chloride 104 mmol/L (98-107) 07/31/21 08:15 Carbon Dioxide 24 mmol/L (22-29) 07/31/21 08:15 Anion Gap 13.1 (5-19) 07/31/21 08:15 BUN 4 mg/dL (6-20) L 07/31/21 08:15 Creatinine 0.5 mg/dL (0.5-0.9) 07/31/21 08:15 GFR Calculation 149.1 mL/min (90-130) H 07/31/21 08:15 Glucose 98 mg/dL (65-115) 07/31/21 08:15 Calculated Osmolality 281 mOsm/kg (285-295) L 07/31/21 08:15 Calcium 7.9 mg/dL (8.5-10.5) L 07/31/21 08:15 Total Bilirubin 0.2 mg/dL (0.15-1.2) 07/31/21 08:15 AST 19 U/L (0-32) 07/31/21 08:15 ALT 6 U/L (0-33) 07/31/21 08:15 Alkaline Phosphatase 111 IU/L (35-105) H 07/31/21 08:15 Total Protein 5.3 g/dL (6.6-8.7) L 07/31/21 08:15 Albumin 3.1 g/dL (3.5-5.2) L 07/31/21 08:15 Globulin 2.2 g/dL (1.3-4.6) 07/31/21 08:15 Urine Opiates Screen Negative ng/mL (Negative) 07/30/21 00:47 Ur Barbiturates Screen Negative ng/mL (Negative) 07/30/21 00:47 Ur Phencyclidine Scrn Negative ng/mL (Negative) 07/30/21 00:47 Ur Amphetamines Screen Negative ng/mL (Negative) 07/30/21 00:47 U Benzodiazepines Scrn Negative ng/mL (Negative) 07/30/21 00:47 Urine Cocaine Screen Negative ng/mL (Negative) 07/30/21 00:47 U Marijuana (THC) Screen Positive ng/mL (Negative) H 07/30/21 00:47 Vitals Last Vital Signs Temp 98.4 F 07/31/21 09:50 Pulse 92 07/31/21 09:50 Resp 15 07/31/21 09:50 BP 118/70 07/31/21 09:50 Pulse Ox 97 07/31/21 09:50 Discharge Plan Discharge Patient Disposition: Home Condition: Stable Prescriptions: New ibuprofen 800 mg Tablet 800 mg PO TID 14 Days Qty: 42 0RF Continued loratadine 10 mg tablet 10 mg PO DAILY 0RF escitalopram oxalate 10 mg tablet 10 mg PO DAILY 0RF Vitamin 27 mg iron- 800 mcg Tablet 1 tab PO DAILY 0RF Discontinued ferrous sulfate [iron] 325 mg (65 mg iron) Tablet 325 mg PO DAILY 0RF famotidine 40 mg tablet 40 mg PO DAILY 0RF Discharge Orders: Discharge Order (Routine); Ordered 07/31/21 Ordered By: Lexi Cruz Discharge Diet: Regular Discharge Activity: Increase activity as tolerated and Limit activity as instructed Patient Instructions: Depression (DC), Bleeding (DC), Preeclampsia and Eclampsia After Delivery (GEN), OB Discharge Report, OB Food/Drug Interaction Guide, OB Care at Home, Opioid Safety, OB Vaginal Deliveries Activity Restrictions/Additional Instructions: Pelvic rest for 6 weeks or until cleared by Primary OB. Call and schedule an appointment with your Primary OB, Dr. Arce for care- appointment in 2 weeks and at 6 weeks . For pain you may alternate Tylenol and Ibuprofen. Tylenol you may take 1000 mg three times per day and Ibuprofen 800mg three times per day. Discharge Attestations WARP TYING MACHINE KNOTTER Time Spent in Discharge Care*: greater than 30 min Coding Level of Care Code Acute Saturation Equipment Operator for Chg Fwd Exam Detailed Diagnoses Hepatitis C B18.2 Hepatic coma status: without hepatic coma Viral hepatitis chronicity: chronic Thrombocytopenia D69.6 Anemia D64.9 Spontaneous vaginal delivery O80 Delivery Note Date of delivery: July 30, 2021 Pre-delivery diagnoses: 26yo at 39w4d by LMP=1st trimester US History of hepatitis C infection- treated in 2019 Marijuana use in -DFS contacted Thrombocytopenia Anemia Post-delivery diagnoses: Term delivery of viable female via spontaneous vaginal delivery History of hepatitis C infection- treated in 2019 Marijuana use in - DFS reportedly completed home visit Thrombocytopenia Anemia Procedure: Spontaneous Vaginal Delivery Delivering Physician: Lexi Cruz DO Estimated blood loss (mL): 250 Pre-Delivery Course Presented to L&D with contractions starting 2100 on 07/29/21. Noted to be GBS positive with amoxicillin allergy however tolerated keflex in past- given Ancef 2g initially for GBS ppx. She continued with irregular contractions every 2-5 minutes and progressed to 7/95/-3. Category 1 FHT. AROM at approx 0715 with thin meconium. She progressed to complete and I was called at approx 0810 for delivery. Delivery On entering the room, baby had delivered with placenta undelivered. Cord clamped and cut and baby placed on maternal abdomen. Was noted to have spontaneous cry but with poor tone and respiratory effort. Baby subsequently transferred to warm for further resuscitation by nursing staff. Peds personal care service provider- Dr. Lewis called to delivery at that time as well. Placenta delivered with gentle traction and intact with membranes. The fundus was noted to be moderately boggy. Pitocin started and with fundal massage noted to improve. Lower uterine segment then swept free of clots. Given 800mg cytotec [place]. Fundus then noted to be firm and well contracted. The vagina and cervix were inspected and no cervical lacerations noted. Right labial 1st degree lacerated noted and repaired using 3-0 vicryl for hemostasis and approx 3cc local anesthesia. Noted to be hemostatic after repair. Noted to have 1st degree midline posterior sulcus tear however was noted to be hemostatic and not repaired. Superior to urethra but not contiguous with urethra noted abrasion that was hemostatic and not repaired. Female born at 0814 with Apgars 7/5/9 weighing 7lb 10oz. Post-Delivery Status Mother tolerated well and left to recover in stable condition. Baby transferred to nursery under care of Dr. Lewis- ISAAC personal care service provider for further care.
[2021-07-31 14:30] VITALS: BP 120/79; PULSE 90; RESP 16; TEMP 36.7
[2021-07-31 14:55] VITALS: BP 120/79; PULSE 90; RESP 16; TEMP 36.7
[2021-07-31 20:22] LABS: HEP C RNA Viral Load Quant <1.18 NOT DETECTED Log IU/mL (NOT DETECTED); HEP C RNA Viral Load Quant <15 NOT DETECTED IU/mL (NOT DETECTED)
== END 2021-07-31 15:17 | disposition home or self-care (01) | DRG 806 ==
PROVIDERS: Admitting Provider Family Medicine; PCP Nurse Practitioner Family; Visit Provider Family Medicine
DX: O70.0 First degree perineal laceration during delivery (principal); O99.324 Drug use complicating childbirth; Z37.0 Single live birth; O98.42 Viral hepatitis complicating childbirth; O99.12 Other diseases of the blood and blood-forming organs and certain disorders involving the immune mechanism complicating childbirth; O99.214 Obesity complicating childbirth; O99.02 Anemia complicating childbirth; D64.9 Anemia, unspecified; O99.334 Smoking (tobacco) complicating childbirth; F17.210 Nicotine dependence, cigarettes, uncomplicated; F12.90 Cannabis use, unspecified, uncomplicated; B18.2 Chronic viral hepatitis C; D69.6 Thrombocytopenia, unspecified; O99.824 Streptococcus B carrier state complicating childbirth; O77.0 Labor and delivery complicated by meconium in amniotic fluid; Z3A.39 39 weeks gestation of pregnancy; O75.89 Other specified complications of labor and delivery; J45.909 Unspecified asthma, uncomplicated
CPT/HCPCS: 12345; 36415; 59025; 59409; 80053; 80306; 85007; 85025; 85027; 87522; 99211; J0690

== ENCOUNTER 2022-12-20 16:56 | Emergency (ER) | payer MEDICAID, SELFPAY ==
[2022-12-20 17:00] VITALS: BP 122/77; PULSE 102; RESP 16; TEMP 36.6; O2SAT 97; BMI 33.6
--- NOTE | 2022-12-20 17:09 | W.ED.DENTAL ---
HPI - Dental/Oral General: Chief complaint: Dental/Oral Stated complaint: tooth pain Time Seen by Provider: 12/20/22 17:03 Source: patient Mode of arrival: ambulatory Limitations: no limitations History of Present Illness: 27-year-old female states she had left lower dental pain over the last week. She is currently on clindamycin but she been having worsening pain she has no trismus denies any neck pain denies any problems swallowing. Associated symptoms: Denies fever(s) Review of Systems Const: Denies: fever(s) or chills ENMT: Reports: dental pain; Denies: throat pain Card: Denies: chest pain Resp: Denies: dyspnea GI: Denies: abdominal pain, nausea, vomiting or diarrhea : Denies: dysuria Musc: Denies: neck pain or back pain Skin/Breast: Denies: rash Neuro: Denies: headache(s) PFS ED PFSH: Medical History Asthma Medical management and to be followed up on by PCP service as an outpatient Bleeding per rectum Breast feeding status of mother Hepatitis C She completed 3 months of Epclusa in 2019 Surgical History History of laparoscopic cholecystectomy (~08/2019) Family History Other Diabetes Denies family history of Anesthesia complication Bleeding disorder Social History Smoking and tobacco status: current every day smoker cigarettes Alcohol intake: current Alcohol intake frequency: holidays/special occasions only Substance/Drug Use: current Substance/Drug use frequency: few times a month Other substance/drug use details: FORMER METHAMPHETAMINE USE Adopted: No Lives independently: Yes Marital status: Single Current gender identity: Female Physical Exam Const: COMMON NORMALS: no acute distress and patient oriented x3 HENMT: COMMON NORMALS: normocephalic and atraumatic HEAD & SCALP: normocephalic and atraumatic OTHER: Tenderness over left lower molar no abscess or trismus Neck/C-Spine: COMMON NORMALS: no lymphadenopathy and supple Chest: COMMONS NORMALS: normal inspection of the chest Resp: COMMON NORMALS: normal respiratory effort GI: INSPECTION: Yes normal to inspection Extremity: COMMON NORMALS: normal to inspection Neuro: COMMON NORMALS: patient oriented x3 Psych: COMMON NORMALS: mental status grossly normal Skin: COMMON NORMALS: no rashes or lesions noted GENERAL SKIN EXAM: no rashes or lesions noted Procedures Nerve Block Nerve Block 1: Time out performed: Yes Local Anesthetic: bupivacaine 0.5% Amount of anesthesia used (mL): 2 Side: left Intraoral Nerve Block: inferior alveolar Procedure Successful: Yes Patient Tolerated Procedure: well Complications: none Course Vital Signs: Vital signs: Vital Signs Temperature 97.9 F 12/20/22 17:00 Pulse Rate 102 H 12/20/22 17:00 Respiratory Rate 16 12/20/22 17:00 Blood Pressure 122/77 12/20/22 17:00 Pulse Oximetry 97 12/20/22 17:00 Oxygen Delivery Me thod Room Air 12/20/22 17:00 MDM - Dental/Oral Medical Decision Making Patient presents here with dental pain she is already on antibiotics I did give her a dental block her pain is improved we will prescribe her pain meds she is to follow-up with a dentist return if worsening she understands agrees to plan. Medical Records I reviewed the patient's medical records. No radiology studies performed this visit Discharge Plan Discharge Patient Disposition: Home Clinical Impression: Toothache Condition: Stable Prescriptions: New hydrocodone-acetaminophen 5-325 mg tablet 1 tab PO Q6H PRN (Reason: pain) Qty: 14 0RF No Action loratadine 10 mg tablet 10 mg PO DAILY escitalopram oxalate 10 mg tablet 10 mg PO DAILY Vitamin 27 mg iron- 800 mcg Tablet 1 tab PO DAILY Discharge Orders: Discharge ED (Routine); Ordered 12/20/22 Ordered By: Mariam Chang Referrals: Aren Lewis MD [Primary Care Provider] - Discharge Diet: Advance as tolerated Discharge Activity: Resume usual activity Patient Instructions: Toothache (ED), Opioid Safety Coding Level of Care Code ED Automation Qa Tester for Tiburcio Keller
[2022-12-20] MEDS: HYDROcodone-acetaminophen 5-325 mg Tablet 1 TAB PO (17:29)
[2022-12-20] MEDS: BUPivacaine 0.5% INJ 10 mL INJECTION (17:29)
== END 2022-12-20 17:35 | disposition home or self-care (01) ==
PROVIDERS: Emergency Provider Emergency Medicine; PCP Family Medicine
DX: K08.89 Other specified disorders of teeth and supporting structures (principal); Z86.19 Personal history of other infectious and parasitic diseases; F17.210 Nicotine dependence, cigarettes, uncomplicated
CPT/HCPCS: 64400; 99283; J3490

== ENCOUNTER → 2023-10-10 10:15 | Outpatient (BNVA) | payer MEDICAID, SELFPAY | PROVIDERS: PCP Family Medicine; Visit Provider Internal Medicine Rheumatology | DX: M19.90 Unspecified osteoarthritis, unspecified site (principal); Z11.59 Encounter for screening for other viral diseases; M45.6 Ankylosing spondylitis lumbar region; Z11.1 Encounter for screening for respiratory tuberculosis; Z79.899 Other long term (current) drug therapy | CPT/HCPCS: 36415; 80076; 82306; 82565; 83520; 85025; 85651; 86140; 86480; 86704; 86803; 86812; 87340; 87522 ==

== ENCOUNTER → 2024-02-07 12:24 | Outpatient (BNVA) | payer MEDICAID, SELFPAY | PROVIDERS: PCP Family Medicine; Visit Provider Internal Medicine Rheumatology | DX: Z79.899 Other long term (current) drug therapy (principal); M06.00 Rheumatoid arthritis without rheumatoid factor, unspecified site | CPT/HCPCS: 36415; 80076; 82565; 85025; 85651; 86140 ==

== ENCOUNTER 2024-05-14 12:41 | Emergency (ER) | payer MEDICAID, SELFPAY ==
[2024-05-14 12:43] VITALS: BP 126/79; PULSE 93; TEMP 36.7; O2SAT 100; BMI 34.4
--- NOTE | 2024-05-14 13:40 | US_ITS ---
WS: [id number] ULTRASOUND SOFT TISSUES LEFT neck swelling. HISTORY: swollen?, dysphagia, told lymphatic infection ; eval thyroi COMPARISON: None available. TECHNIQUE: 2-D and color Doppler imaging is submitted. No lymphadenopathy or soft tissue masses are noted within the LEFT neck along the cervical chain. There is no soft tissue edema. RIGHT side imaged for comparison purposes. US/US soft tissue head neck [id number] IMPRESSION: Negative soft tissue ultrasound LEFT cervical chain.
--- NOTE | 2024-05-14 14:14 | W.ED.GENADLT ---
HPI - General Adult General: Chief complaint: Shortness of Breath/Dyspnea Stated complaint: SOB Time Seen by Provider: 05/14/24 13:19 Source: patient Mode of arrival: ambulatory Limitations: no limitations History of Present Illness: Patient is a 29-year-old female presents to ED today with multiple medical complaints. Patient states she has a normal baseline tremor but feels like this is worse than normal. She is also having problems with temperature regulation stating she was having hot flashes and sweating even though was 50 degrees outside. She states she is having sensations like her food is getting stuck when she swallows. She feels like her neck is swollen. She states last week she was seen at [facility] by the nurse practitioner. She states she was told that she had fluid behind her left ear. She was also told that she might have some sinus issues and believes she was placed on prednisone. She states she had followed up with Dr. Godoy a few days afterwards and was diagnosed with a lymphatic infection in her neck and was placed on doxycycline. Patient appears her symptoms might be related to her thyroid. She is not having a sore throat. No fevers. She is eating and drinking normally apart from she feels like her food does not go down as easily as it normally would and is having to increase water intake during eating. She is not having any dental pain. She has not noticed any facial swelling. No fevers. She overall states that she feels ill . Is not sure if symptoms are related to her anxiety and everything crashing down around me . Feels like her symptoms in her neck radiates up to her bilateral ears. Patient does see Dr. Saeed/rheumatology for autoimmune disease (rheumatoid arthritis). Feels short of breath-thinks it is her asthma but has been seen for this several times and told her lungs sound normal. Onset (ago): day(s) Location: face and neck Radiation: non-radiation Relieving factors: none Exacerbating factors: none Associated symptoms: Reports dyspnea; Deny chest pain, headache(s), nausea, rash or vomiting Related Data Home Medications ?Medication ?Instructions ?Recorded ?Confirmed loratadine 10 mg tablet 10 mg PO DAILY 07/02/21 02/07/24 bupropion HCl 300 mg 24 hr tablet, 300 mg PO QAM 10/10/23 02/07/24 extended release (Wellbutrin XL) acetaminophen 500 mg capsule 1,000 mg PO .[id number] 02/07/24 02/07/24 famotidine 20 mg tablet (Pepcid) 20 mg PO BID 02/07/24 02/07/24 montelukast 10 mg tablet 10 mg PO DAILY 02/07/24 02/07/24 (Singulair) Previous Rx's ?Medication ?Instructions ?Recorded folic acid 1 mg tablet 1 mg PO DAILY #30 tabs 11/29/23 leflunomide 20 mg tablet 20 mg PO DAILY #30 tabs 02/07/24 prednisone 5 mg tablet 5 mg PO DAILY #90 tabs 03/05/24 Allergies Allergy/AdvReac Type Severity Reaction Status Date / Time amoxicillin Allergy rash Verified 05/14/24 12:55 bupropion (From Wellbutrin) Allergy ALGY-Redness Verified 05/14/24 12:55 of Skin Review of Systems Const: Reports: fatigue and other (hot sweats); Denies: fever(s), chills, body aches, change in appetite or change in weight Eyes: Denies: change in vision, blurry vision, photophobia, eye discomfort or eye discharge ENMT: Reports: ear or mastoid pain, nasal congestion and other (feels like food has trouble passing when eating); Denies: throat pain, uvular edema, enlarged tonsils, odynophagia, hoarseness, swelling of lips/tongue, oral sores, ear discharge, disequilibrium, nasal discharge, epistaxis, post nasal drip or sinus pain Card: Denies: chest pain Resp: Reports: dyspnea; Denies: productive cough or non-productive cough GI: Denies: abdominal pain, nausea or vomiting Musc: Reports: other (reports neck swelling); Denies: neck pain, back pain, extremity pain, extremity swelling, joint pain, joint swelling or joint redness Skin/Breast: Denies: rash Neuro: Denies: headache(s), numbness in extremities, weakness in extremities, sensory changes or dizziness All/Imm: Denies: facial swelling or seasonal rhinorrhea PFSH ED PFSH: Medical History Chronic steroid use Immunization counseling High risk medication use Inflammatory arthritis Seasonal allergies GERD (gastroesophageal reflux disease) Joint pain Anxiety and depression Bleeding per rectum Asthma Medical management and to be followed up on by PCP service as an outpatient Breast feeding status of mother Hepatitis C She completed 3 months of Epclusa in 2019 Surgical History History of bilateral tubal ligation History of laparoscopic cholecystectomy (~08/2019) Family History Other Cancer Chronic kidney disease (CKD) Diabetes Hypertension Osteoporosis Rheumatoid arthritis Denies family history of Lupus (systemic lupus erythematosus) Migraines Anesthesia complication Bleeding disorder Stroke Social History Smoking and tobacco/nicotine status: former use of tobacco/nicotine Alcohol intake: current Alcohol intake frequency: holidays/special occasions only Substance/Drug Use: current Substance/Drug use frequency: few times a month Other substance/drug use details: FORMER METHAMPHETAMINE USE Adopted: No Lives independently: Yes Marital status: Single Current gender identity: Female Physical Exam Const: COMMON NORMALS: no acute distress, average body habitus, patient oriented x3, no limitations, healthy appearing, alert and well nourished GENERAL APPEARANCE: cooperative ORIENTATION/CONSCIOUSNESS: Yes awake, Yes oriented to person, Yes oriented to place and Yes oriented to time HENMT: COMMON NORMALS: normocephalic, atraumatic, hearing grossly normal bilaterally, external ears normal, EAC's normal, Normal external nose present, Normal nasal mucous membranes and turbinates present, moist oral mucous membranes and oropharynx normal HEAD & SCALP: normal to inspection, normocephalic and atraumatic FACE & SINUS: normal facial exam, sinuses nontender and face symmetric NOSE: Normal external nose present and Normal nasal mucous membranes and turbinates present EXTERNAL EAR: Yes external ears normal EXTERNAL AUDITORY CANAL: EAC's normal TYMPANIC MEMBRANE: TM normal on the right and TM abnormal TM laterality: left (small effusion) MOUTH: Normal oral and palatal mucosa present and lip normal THROAT: posterior oropharynx normal and tonsils normal; no uvular edema Eye: COMMON NORMALS: Equal, round and reactive pupils present, EOMs intact bilaterally and conjunctivae normal CONJUNCTIVA: Yes conjunctivae normal PUPIL: Yes Equal, round and reactive pupils present Neck/C-Spine: COMMON NORMALS: full ROM, no lymphadenopathy, supple, no meningeal signs, no JVD and No carotid bruits GENERAL: Yes normal visual inspection, Yes trachea midline, No lymphadenopathy, No tender, No tracheal deviation and No submandibular swelling THYROID: symmetrical, not firm, no masses and no warm Resp: COMMON NORMALS: normal respiratory effort and clear to auscultation bilaterally AUSCULTATION: clear to auscultation bilaterally Cardio: COMMON NORMALS: no JVD, regular rate and regular rhythm RATE: regular rate RHYTHM: regular rhythm Extremity: GENERAL: Yes normal exam except as noted Neuro: STEVE COMA SCALE: document GCS findings Mclean coma scale eye opening: Spontaneous Steve coma scale verbal response: Orientated Mclean coma scale motor response: Obey commands Steve coma scale total score: 15 COMMON NORMALS: patient oriented x3, CN's II-XII intact bilaterally, moves all extremities, no focal motor deficits and no sensory deficits noted SENSORIUM/ORIENTATION: Yes alert, Yes oriented to person, Yes oriented to place and Yes oriented to time MENINGEAL SIGNS: Yes no meningeal signs Skin: COMMON NORMALS: no rashes or lesions noted GENERAL SKIN EXAM: no rashes or lesions noted Course Vital Signs: Vital signs: Vital Signs Temperature 98.0 F 05/14/24 12:43 Pulse Rate 93 05/14/24 12:43 Blood Pressure 126/79 05/14/24 12:43 Pulse Oximetry 100 05/14/24 12:43 Oxygen Delivery Me thod Room Air 05/14/24 12:43 [facility] - General Adult Medical Decision Making Patient here for multiple medical complaints. She clinically appears in no acute distress. Her workup today is benign. Patient will be allowed discharge with recommendations to follow-up with her PCP.. Medical Records I reviewed the patient's medical records. Lab Data I reviewed the patient's lab results. 05/14/24 14:09 05/14/24 14:09 Radiology Impressions Head/Neck Ultrasound 05/14/24 13:40 IMPRESSION: Negative soft tissue ultrasound LEFT cervical chain. Laboratory Results WBC 6.95 10^3/uL (3.29-11.43) 05/14/24 14:09 RBC 4.09 10^6/uL (3.85-5.65) 05/14/24 14:09 Hgb 12.00 g/dL (11.27-16.99) 05/14/24 14:09 Hct 38.1 % (36-47) 05/14/24 14:09 MCV 93.2 fl (85-98) 05/14/24 14:09 MCH 29.3 pg (27-33) 05/14/24 14:09 MCHC 31.5 g/dL (30-55) 05/14/24 14:09 RDW 12.7 % (12.1-15.1) 05/14/24 14:09 Plt Count 170 10^3/cmm (157-399) 05/14/24 14:09 MPV 11.2 fL (7.4-10.4) H 05/14/24 14:09 Neut % (Auto) 50.1 % 05/14/24 14:09 Lymph % (Auto) 32.2 % 05/14/24 14:09 [place] % (Auto) 10.5 % 05/14/24 14:09 Eos % (Auto) 5.5 % 05/14/24 14:09 Baso % (Auto) 1.4 % 05/14/24 14:09 Neut # (Auto) 3.48 10^3/uL (1.8-7.7) 05/14/24 14:09 Lymph # (Auto) 2.2 10^3/uL (0.8-4.8) 05/14/24 14:09 [place]ami # (Auto) 0.7 10^3/uL (0.2-0.9) 05/14/24 14:09 Eos # (Auto) 0.4 10^3/uL (0.0-0.8) 05/14/24 14:09 Baso # (Auto) 0.1 10^3/uL (0.0-0.1) 05/14/24 14:09 Nucleated RBC % (auto) 0 % 05/14/24 14:09 Nucleated RBCs # 0.0 /100WBC 05/14/24 14:09 Sodium 138 mmol/L (136-145) 05/14/24 14:09 Potassium 3.7 mmol/L (3.5-5.1) 05/14/24 14:09 Chloride 104 mmol/L (98-107) 05/14/24 14:09 Carbon Dioxide 20 mmol/L (22-29) L 05/14/24 14:09 Anion Gap 17.7 (5-19) 05/14/24 14:09 BUN 7 mg/dL (6-20) 05/14/24 14:09 Creatinine 0.6 mg/dL (0.5-0.9) 05/14/24 14:09 GFR Calculation 118.2 mL/min (90-130) 05/14/24 14:09 Glucose 89 mg/dL (65-115) 05/14/24 14:09 Calculated Osmolality 283 mOsm/kg (285-295) L 05/14/24 14:09 Calcium 8.9 mg/dL (8.5-10.5) 05/14/24 14:09 Total Bilirubin 0.2 mg/dL (0.15-1.2) 05/14/24 14:09 AST 13 U/L (0-32) 05/14/24 14:09 ALT 16 U/L (0-33) 05/14/24 14:09 Alkaline Phosphatase 55 U/L (35-105) 05/14/24 14:09 Total Protein 6.8 g/dL (6.6-8.7) 05/14/24 14:09 Albumin 4.2 g/dL (3.5-5.2) 05/14/24 14:09 Globulin 2.6 g/dL (1.3-4.6) 05/14/24 14:09 TSH 0.67 uIU/mL (0.27-4.20) 05/14/24 14:09 All radiology interpretation(s) finalized by discharge Discharge Plan Discharge Patient Disposition: Home Clinical Impression: Multiple complaints Condition: Stable Prescriptions: No Action bupropion HCl [Wellbutrin XL] 300 mg tablet extended release 24 hr 300 mg PO QAM famotidine [Pepcid] 20 mg tablet 20 mg PO BID montelukast [Singulair] 10 mg tablet 10 mg PO DAILY leflunomide 20 mg tablet 20 mg PO DAILY Qty: 30 4RF acetaminophen 500 mg capsule 1,000 mg PO .[id number] folic acid 1 mg tablet 1 mg PO DAILY Qty: 30 2RF prednisone 5 mg tablet 5 mg PO DAILY Qty: 90 1RF loratadine 10 mg tablet 10 mg PO DAILY Discharge Orders: Discharge ED (Routine); Ordered 05/14/24 Ordered By: Edwina Luu Referrals: Aren Lewis MD [Primary Care Provider] - Activity Restrictions/Additional Instructions: As we discussed, there were multiple complaints discussed today including your tremor, temperature intolerance, reported neck pain and swelling, dysphagia, ear pain, etc. At this time vital signs are stable. Your blood work (including thyroid lab) overall is unremarkable. Ultrasound imaging of your neck and thyroid was normal. I recommend you follow-up with your primary care provider, Dr. Lewis for further evaluation. Print Language: Finnish Coding Level of Care Code ED Line And Frame Poler for Tiburcio Keller
--- NOTE | 2024-05-14 14:16 | ECG_ITS ---
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 Measurements Intervals [place] Rate: 66 P: 57 GA: 121 QRS: 57 QRSD: 88 T: 51 QT: 364 QTc: 383 Interpretive Statements SINUS RHYTHM POSSIBLE LEFT ATRIAL ENLARGEMENT [-0.1mV P-WAVE IN V1/V2] No previous ECG available for comparison Electronically Signed On 05-15-2024 17:23:10 MEDICAL SCIENTIST by Kasia Michel M.D. [email or web address]
[2024-05-14 14:21] LABS: Basophils # 0.1 10^3/uL (0.0-0.1); Basophils % 1.4 %; Eosinophils # 0.4 10^3/uL (0.0-0.8); Eosinophils % 5.5 %; Hematocrit 38.1 % (36-47); Lymphocytes # 2.2 10^3/uL (0.8-4.8); Lymphocytes % 32.2 %; Mean Corpuscular HGB Conc 31.5 g/dL (30-55); Mean Corpuscular Hemoglobin 29.3 pg (27-33); Mean Corpuscular Volume 93.2 fl (85-98); Mean Platelet Volume 11.2 fL (7.4-10.4); Monocytes # 0.7 10^3/uL (0.2-0.9); Monocytes % 10.5 %; Neutrophils # 3.48 10^3/uL (1.8-7.7); Neutrophils % 50.1 %; Nucleated Red Blood Cells % 0 %; Platelet Count 170 10^3/cmm (157-399); Red Blood Count 4.09 10^6/uL (3.85-5.65); Red Cell Distribution Width 12.7 % (12.1-15.1); White Blood Count 6.95 10^3/uL (3.29-11.43)
[2024-05-14 14:51] LABS: Alanine Aminotransferase 16 U/L (0-33); Albumin Level 4.2 g/dL (3.5-5.2); Alkaline Phosphatase 55 U/L (35-105); Anion Gap 17.7 (5-19); Aspartate Amino Transferase 13 U/L (0-32); Blood Urea Nitrogen 7 mg/dL (6-20); Calcium 8.9 mg/dL (8.5-10.5); Carbon Dioxide 20 mmol/L (22-29); Chloride 104 mmol/L (98-107); Creatinine Clr Calc Pharmacy 167.8993; Globulin 2.6 g/dL (1.3-4.6); Glomerular Filtration Rate 118.2 mL/min (90-130); Glucose 89 mg/dL (65-115); Osmolality Calculated 283 mOsm/kg (285-295); Potassium 3.7 mmol/L (3.5-5.1); Sodium 138 mmol/L (136-145); Thyroid Stimulating Hormone 0.67 uIU/mL (0.27-4.20); Total Bilirubin 0.2 mg/dL (0.15-1.2); Total Protein 6.8 g/dL (6.6-8.7)
[2024-05-14] MEDS: ketorolac 60 mg/2 mL INJ IM (15:05)
[2024-05-14 15:48] VITALS: BP 124/76; PULSE 89; RESP 16; O2SAT 99
== END 2024-05-14 15:38 | disposition home or self-care (01) ==
PROVIDERS: Emergency Provider Physician Assistant; PCP Family Medicine
DX: Z03.89 Encounter for observation for other suspected diseases and conditions ruled out (principal); Z87.891 Personal history of nicotine dependence
CPT/HCPCS: 76536; 80053; 84443; 85025; 93005; 96372; 99284; J1885

== ENCOUNTER → 2024-06-19 12:25 | Outpatient (BNVA) | payer MEDICAID, SELFPAY | PROVIDERS: PCP Family Medicine; Visit Provider Internal Medicine Rheumatology | DX: Z79.899 Other long term (current) drug therapy (principal) | CPT/HCPCS: 36415; 80076; 82306; 82565; 82607; 82746; 84439; 84443; 85025; 85651; 86140 ==

== ENCOUNTER → 2024-09-05 13:31 | Outpatient (BNVA) | payer MEDICAID, SELFPAY | PROVIDERS: PCP Family Medicine; Referring Provider Internal Medicine Rheumatology; Visit Provider Psychiatry & Neurology Neurology | DX: E55.9 Vitamin D deficiency, unspecified (principal) | CPT/HCPCS: 36415; 82306 ==